=== PATIENT | female | born 1940 | race Caucasian/White ===

== ENCOUNTER 2017-06-10 13:34 | Inpatient (IN) ==
[2017-06-10 15:35] LABS: Basophils % 0.9 %; Eosinophils # 0.1 K/mcL (0.0-0.6); Eosinophils % 2.9 %; Hematocrit 29.8 % (35.3-44.9); Immature Granulocytes % 0.9 % (0-4); Lymphocytes # 0.4 K/mcL (0.6-4.6); Lymphocytes % 8.6 %; Mean Corpuscular HGB Conc 30.2 g/dL (31.6-35.5); Mean Corpuscular Hemoglobin 22.7 pg (28.0-33.3); Mean Corpuscular Volume 75.1 fL (83.0-100.0); Mean Platelet Volume 9.4 fL (9.4-12.4); Monocytes # 0.4 K/mcL (0.0-1.3); Monocytes % 7.7 %; Neutrophils # 3.6 K/mcL (1.6-8.9); Platelet Count 230 K/mcL (140-400); Red Blood Count 3.97 M/mcL (3.82-4.97); Red Cell Distribution Width 17.1 % (11.5-14.5)
[2017-06-10 15:50] LABS: Albumin 3.4 g/dL (3.5-5.0); Albumin/Globulin Ratio 1.1 (1.1-2.2); Bilirubin,Total 0.6 mg/dL (0.2-1.2); Calcium 9.2 mg/dL (8.6-10.8); Globulin 3.1 g/dL (2.4-3.5); Potassium 4.4 mEq/L (3.5-4.5); Total Protein 6.5 g/dL (6.0-8.3)
--- NOTE | 2017-06-10 17:12 | Emergency Department Note ---
Disposition Clinical Impression: Frail elderly, Lower extremity edema, Dyspnea, Anemia, Renal insufficiency, Pleural effusion Disposition: Admitted As Inpatient Referrals: Robles Koch MD [Primary Care Provider] - Forms: ED Satisfaction Letter General Adult HPI - General Chief complaint: ED Shortness of Breath/Dyspnea Stated complaint: JACKELINE, BLE swelling Time Seen by Provider: 06/10/17 17:10 Source: patient Limitations: no limitations - History of Present Illness HPI Narrative: 77-year-old female reports emergency department complaining of lower extreme edema bilaterally. There is no history of chest pain or coughing up blood. No trauma. There is no history of syncope. The patient is currently not anticoagulated. She has no history of renal failure liver failure or previous heart failure. The patient is had no abdominal pain. No back pain. No coughing redness or pain sore throat fever syncope or coughing up blood. No trouble moving the arms or legs independently no slurred speech or weakness or numbness of the arms or legs. There is no history of trauma. The patient has no history of DVT PE but does have a history of uterine cancer. The patient usually takes antihypertensive medications which do contain a diuretic but she has never taken diuretics for heart failure purposes. She has had increasing shortness of breath with exertion as well as an element of orthopnea. Pain Scale: 8 - Related Data Home Medications Medication Instructions Recorded Confirmed Acetaminophen [Tylenol] 500 mg PO DAILY 06/10/17 06/10/17 Albuterol Neb [Proventil Neb] 2.5 mg IH Q4-6H PRN 06/10/17 06/10/17 Albuterol Sulfate [Proair Hfa] 2 puff IH Q6H PRN 06/10/17 06/10/17 Aspirin 325 mg PO DAILY 06/10/17 06/10/17 Carvedilol [Coreg] 6.25 mg PO BID 06/10/17 06/10/17 Furosemide [Lasix] 20 mg PO DAILY 06/10/17 06/10/17 Allergies Allergy/AdvReac Type Severity Reaction Status Date / Time No Known Allergies Allergy Verified 06/10/17 14:40 All systems ED: reviewed and negative except as stated. Past Medical History - Past Medical History Medical history: Reports: asthma, hypertension Psychiatric history: Reports: no psych history DIRECTOR OF MARKETING history: Reports: no DIRECTOR OF MARKETING history - Social History Smoking Status: Never smoker Smokeless Tobacco Status: No Alcohol use: Reports: none Drug use: Reports: none Physical Exam - General Limitations: no limitations General appearance: alert, in no apparent distress - Head Head exam: atraumatic, normocephalic, normal inspection - Eye Eye exam: Present: normal appearance, PERRL, EOMI - ENT ENT exam: normal exam, normal oropharynx, mucous membranes moist, TM's normal bilaterally, normal external ear exam - Neck Neck exam: Present: normal inspection, full ROM, trachea midline, tenderness - Chest Chest inspection: Present: normal inspection, symmetric chest wall rise - Respiratory Respiratory exam: Present: prolonged expiratory phase. Absent: respiratory distress, wheezes, stridor - Cardiovascular Cardiovascular exam: Present: regular rate, normal rhythm, normal heart sounds - Abdominal Exam Abdominal exam: Present: soft, Non-Tender, normal bowel sounds. Absent: tenderness, distention, guarding, rebound, rigidity - Extremities Exam Extremities exam: Present: full ROM, normal capillary refill, pedal edema. Absent: joint swelling - Expanded Lower Extremity Exam Neurovascular/Tendon exam: Present: normal capillary refill. Absent: motor deficit, sensory deficit, tendon deficit, extremity cold to touch, pallor - Back Exam Back exam: Present: normal inspection, full ROM. Absent: tenderness, CVA tenderness (R), CVA tenderness (L), vertebral tenderness - Neurological Exam Neurological exam: Present: alert, oriented X3, CN II-XII intact. Absent: motor sensory deficit - Psychiatric Psychiatric exam: Present: normal affect, normal mood - Skin Skin exam: Present: warm, dry, intact, normal color. Absent: rash, cyanosis, diaphoresis, erythema, pallor, mottled Course Vital Signs Temperature 97.8 F 06/10/17 14:41 Pulse Rate 81 06/10/17 14:41 Respiratory Rate 20 06/10/17 14:41 Blood Pressure 126/72 06/10/17 14:41 O2 Sat by Pulse Oximetry 95 06/10/17 14:41 Temperature 97.8 F 06/10/17 14:41 Pulse Rate 76 06/10/17 18:00 Respiratory Rate 16 06/10/17 18:00 Blood Pressure 134/80 06/10/17 18:00 O2 Sat by Pulse Oximetry 96 06/10/17 18:00 Oxygen Delivery Oxygen Delivery Room Air Medical Decision Making - [facility] Narrative Medical decision making narrative: Patient is elderly, has bilateral pleural effusions with markedly lower extremity edema, d-dimer and CT have been ordered. The patient does not appear to be in extremis, Lasix was given. The patient has had no cough but has significant orthopnea. There is no history of chest pain, EKG and cardiac enzymes are negative. The patient does not usually have lower extremity edema, based on her age, symptomatic dyspnea, pleural effusions, notable lower extremity edema, I consult with the hospitalist who has accepted the patient for admission. The patient is currently stable with d-dimer and CTA pending. He patient does not have an elevated white count, she has no fever, I do not suspect an infectious source regarding her bilateral pleural effusions, the differential is broad however, further testing and evaluation per the hospitalist team. - Lab Data Result diagrams: 06/10/17 15:28 06/10/17 15:28 Lab Results 06/10/17 06/10/17 06/10/17 Range/Units 15:28 15:28 15:28 WBC 4.5 (4.3-11.1) K/mcL RBC 3.97 (3.82-4.97) M/mcL Hgb 9.0 L (11.5-15.4) g/dL Hct 29.8 L (35.3-44.9) % MCV 75.1 L (83.0-100.0) fL MCH 22.7 L (28.0-33.3) pg MCHC 30.2 L (31.6-35.5) g/dL RDW 17.1 H (11.5-14.5) % Plt Count 230 (140-400) K/mcL MPV 9.4 (9.4-12.4) fL Immature Gran % 0.9 (0-4) % Seg Neutrophils % 79.0 % Lymphocytes % 8.6 % Monocytes % 7.7 % Eosinophils % 2.9 % Basophils % 0.9 % Neutrophils # 3.6 (1.6-8.9) K/mcL Lymphocytes # 0.4 L (0.6-4.6) K/mcL Monocytes # 0.4 (0.0-1.3) K/mcL Eosinophils # 0.1 (0.0-0.6) K/mcL Basophils # 0.0 (0.0-0.2) K/mcL Sodium 132 L (136-145) mEq/L Potassium 4.4 (3.5-4.5) mEq/L Chloride 95 L (98-109) mEq/L Carbon Dioxide 27 (19-29) mEq/L BUN 28 H (7-20) mg/dL Creatinine 1.30 H (0.57-1.11) mg/dL Est GFR ( Amer) 48 L (> 60) Est GFR (Non-Af Amer) 40 L (> 60) BUN/Creatinine Ratio 22 (6-26) Glucose 86 (70-99) mg/dL Calculated Osmolality 279 L (280-300) Calcium 9.2 (8.6-10.8) mg/dL Total Bilirubin 0.6 (0.2-1.2) mg/dL AST 16 (5-34) Units/L ALT 10 (0-55) Units/L Alkaline Phosphatase 74 (38-126) Units/L Troponin I 0.00 (0-0.03) ng/mL B-Natriuretic Peptide (0-100) pg/mL Serum Total Protein 6.5 (6.0-8.3) g/dL Albumin 3.4 L (3.5-5.0) g/dL Globulin 3.1 (2.4-3.5) g/dL Albumin/Globulin Ratio 1.1 (1.1-2.2) 06/10/17 Range/Units 15:28 WBC (4.3-11.1) K/mcL RBC (3.82-4.97) M/mcL Hgb (11.5-15.4) g/dL Hct (35.3-44.9) % MCV (83.0-100.0) fL MCH (28.0-33.3) pg MCHC (31.6-35.5) g/dL RDW (11.5-14.5) % Plt Count (140-400) K/mcL MPV (9.4-12.4) fL Immature Gran % (0-4) % Seg Neutrophils % % Lymphocytes % % Monocytes % % Eosinophils % % Basophils % % Neutrophils # (1.6-8.9) K/mcL Lymphocytes # (0.6-4.6) K/mcL Monocytes # (0.0-1.3) K/mcL Eosinophils # (0.0-0.6) K/mcL Basophils # (0.0-0.2) K/mcL Sodium (136-145) mEq/L Potassium (3.5-4.5) mEq/L Chloride (98-109) mEq/L Carbon Dioxide (19-29) mEq/L BUN (7-20) mg/dL Creatinine (0.57-1.11) mg/dL Est GFR ( Amer) (> 60) Est GFR (Non-Af Amer) (> 60) BUN/Creatinine Ratio (6-26) Glucose (70-99) mg/dL Calculated Osmolality (280-300) Calcium (8.6-10.8) mg/dL Total Bilirubin (0.2-1.2) mg/dL AST (5-34) Units/L ALT (0-55) Units/L Alkaline Phosphatase (38-126) Units/L Troponin I (0-0.03) ng/mL B-Natriuretic Peptide 44 (0-100) pg/mL Serum Total Protein (6.0-8.3) g/dL Albumin (3.5-5.0) g/dL Globulin (2.4-3.5) g/dL Albumin/Globulin Ratio (1.1-2.2)
[2017-06-10] MEDS ORDERED: Furosemide 40 MG/4 ML VIAL IVP ONE (17:54)
[2017-06-10] MEDS ORDERED: Ondansetron 4 MG/2 ML VIAL IVP PRN (21:53)
[2017-06-10] MEDS ORDERED: Naloxone 0.4 MG/ML INJ IVP PRN (21:53)
[2017-06-10] MEDS ORDERED: *HR* Morphine 2 MG/ML SYRINGE IVP PRN (21:53)
[2017-06-10] MEDS ORDERED: *HR* HYDROcodone/Acet 5/325 mg TABLET PO PRN (21:53)
[2017-06-10] MEDS ORDERED: Acetaminophen 325 MG TABLET PO PRN (21:53)
[2017-06-10] MEDS ORDERED: *HR* Heparin 5,000 UNIT/ML VIAL IVP PRN ×2 (21:58)
[2017-06-10] MEDS ORDERED: *HR* Heparin 5,000 UNIT/ML VIAL IVP ONE (21:58)
--- NOTE | 2017-06-10 22:11 | Internal Med History&Physical ---
Date of Encounter: 06/10/17 Time of Encounter: 21:00 Assessment and Plan (1) Dyspnea Current visit: Yes Status: Acute Patient presents with SOB/dyspnea/orthopnea for past week and a half that has become progressively worse. D-dimer 13,023. Concern is for PE versus CHF. Patient has 2+ pitting edema of bilateral LEs. Patient reports she cannot lay flat for VQ scan at this time. Diurese with 40 mg IVP lasix BID and VQ scan ordered for tomorrow. Venous Doppler ordered for bilateral LEs to r/o DVTs. Supplemental O2 with titration and continuous SpO2 monitoring. Will continue patient's inhalers. DuoNebs Q6 PRN. Monitor patient and VS. Patient placed in standard-dose heparin drip for prophylaxis until VQ scan can be completed. Echocardiogram ordered. Qualifiers: Dyspnea type: orthopnea Qualified Code(s): R06.01 - Orthopnea (2) Lower extremity edema Current visit: Yes Status: Acute 2+ pitting edema present on BLEs. Patient states this has never been this severe. Concern is for possible DVT/PE due to D-dimer of 13,023. Diurese with IV lasix 40 mg BID. Coronel catheter to be placed during diuresis. Venous Dopplers ordered to r/o DVTs in LEs. Standard-dose heparin drip for prophylaxis. Monitor I&O and daily weight. (3) Pleural effusion Current visit: Yes Status: Acute 2-View CXR today shows pleural effusions with bibasilar atelectasis. Patient takes 20 mg PO lasix daily. Will hold PO and administer IVP lasix 40 mg BID for current fluid overload. Monitor I&O and VS/respiratory status. (4) Anemia Current visit: Yes Status: Acute Hgb 9.0 and Hct 29.8 on admission. No prior values to compare to. Patient denies any unusual bleeding. Fecal hemoccult ordered. Monitor H/H in follow-up labs. Monitor patient for signs of unusual bleeding d/t current heparin drip. Renal B/C vitamin ordered daily. Qualifiers: Anemia type: unspecified type Qualified Code(s): D64.9 - Anemia, unspecified (5) Renal insufficiency Current visit: Yes Status: Acute Patient presents with GFR of 40 but denies any hx of CKD or renal insufficiency. Will diurese patient cautiously with IVP lasix for current bilateral pedal edema. Monitor follow-up labs, renal function, I&O, and daily weight. (6) HTN (hypertension) Current visit: Yes Status: Chronic Hx of chronic HTN. Monitor patient and VS and continue patient's Coreg. Qualifiers: Hypertension type: essential hypertension Qualified Code(s): I10 - Essential (primary) hypertension (7) DVT prophylaxis Current visit: Yes Status: Acute Patient placed on standard-dose heparin drip for prophylaxis due to concern for PE/DVT. Will monitor patient for signs of bleeding. Internal Medicine - H&P: HPI Chief complaint: SOB/Dyspnea Admitted From: Emergency Dept Plans for Post Hospital Care: Home History of present illness: Mrs. Quintero is a 77 year old female with medical history asthma, hypertension, and uterine cancer presents from the ED with chief complaint of SOB and dyspnea for the past 1 1/2 weeks. She states that she has never had this before. She also states that she has bilateral pedal edema that is 2+ and has never been this bad. She denies history of COPD, CHF, or cardiac issues. Patient denies recent illness, fever, chills, nausea, vomiting, abdominal pain, changes in vision, headache, chest pain, lightheadedness, unusual bleeding, pre-syncope, or syncope. Patient denies any history of anemia. On admission, patient's vital signs include temperature of 97.8F, heart rate of 76 bpm, respiratory rate of 16 , BP of 134/80, and SPO2 96% on room air. 2-View CXR today shows pleural effusions with bibasilar atelectasis. Pertinent abnormal labs include Hgb of 9.0 , HCT of 29.8, sodium of 132, chloride of 95, BUN of 28, creatinine 1.30, GFR 40 , and D-dimer of 13,023. Initial troponin 0.00. Assessment: Patient is alert and oriented 3 and states she is not experiencing acute distress with the exception of mild shortness of breath and orthopnea when she lays flat. HR is RRR. Lungs have diminished breath sounds bilaterally and auscultation without wheezes or crackles. Patient has 2+ pitting edema bilateral lower extremities. Patient is hemodynamically stable and reports only mild SOB. Information obtained from patient, chart review, and previous medical records. Mrs. Quintero is at high risk for further morbidity and respiratory distress based on current symptoms, high risk for possible PE/DVT, and history and will be placed as inpatient status. Time spent with patient >40 minutes. Past Med Surg Social Fam HX - Past Medical History Source: patient, old records reviewed Medical history: asthma, cancer (Uterine), hypertension Psychiatric history: no psych history - Past Surgical History Surgical History: appendectomy, cholecystectomy, hysterectomy (Total), vascular surgery (Stripping of varicose veins of right leg) - Social History Smoking Status: Never smoker Smokeless Tobacco Status: No Alcohol use: none Drug use: none Current living situation: Home, With Family Activity Level: Independent ambulation Recent Out of Country Travel Within the Last 8 Weeks: No Exposure or Possible Exposure to Illness During Travel: No - Family History Father Race: Family Member Ethnicity: Non- Living Status: Age at : 61 Cause of : MT Hx Family Cardiac Disorders: Yes (MT, CAD) Mother Race: Family Member Ethnicity: Non- Living Status: Age at : 80 Cause of : CHF Hx Family Cardiac Disorders: Yes (CHF, CAD, TIAs) Hx Family Endocrine Disorder: Yes (DM) Brother Race: Family Member Ethnicity: Non- Living Status: Age at : 72 Cause of : MT Hx Family Cardiac Disorders: Yes (MT, CAD, HTN) Sister Race: Family Member Ethnicity: Non- Living Status: Age at : 89 Cause of : Heart failure Hx Family Cardiac Disorders: Yes (HF, CAD, HTN) Internal Medicine - H&P: Meds Acetaminophen [Tylenol] 500 mg PO DAILY 06/10/17 [History] Albuterol Neb [Proventil Neb] 2.5 mg IH Q4-6H PRN 06/10/17 [History] Albuterol Sulfate [Proair Hfa] 2 puff IH Q6H PRN 06/10/17 [History] Aspirin 325 mg PO DAILY 06/10/17 [History] Carvedilol [Coreg] 6.25 mg PO BID 06/10/17 [History] Furosemide [Lasix] 20 mg PO DAILY 06/10/17 [History] 3 Allergy/AdvReac Type Severity Reaction Status Date / Time No Known Allergies Allergy Verified 06/10/17 14:40 All Systems PM: A 10-system review of systems was performed and is negative for pertinent findings except as documented above in the HPI. - Constitutional Constitutional: as per HPI, weakness, no chills, no fever(s), no night sweats - EENT Eyes: no change in vision, no discharge, no pain, no photophobia Ears: no ear discharge, no ear pain, no tinnitus Nose, mouth and throat: no dysphagia, no nasal discharge, no neck pain, no sore throat - Breasts Breasts: as per HPI - Cardiovascular Cardiovascular ROS IM: as per HPI, dyspnea, dyspnea on exertion, edema, orthopnea - Respiratory Respiratory: as per HPI, dyspnea, dyspnea on exertion - Gastrointestinal Gastrointestinal: no abdominal pain, no diarrhea, no hematemesis, no hematochezia, no melena, no nausea, no vomiting - Genitourinary Genitourinary: no change in urinary stream, no dysuria, no flank pain, no hematuria Menstruation: as per HPI, post hysterectomy - Musculoskeletal Musculoskeletal ROS IM: no numbness, no tingling - Integumentary Integumentary IM: no rash, no unusual bruising - Neurological Neurological ROS: no confusion, no convulsions, no focal weakness, no numbness, no tingling, no tremor(s) - Psychiatric Psychiatric: as per HPI - Endocrine Endocrine IM: as per HPI - Hematologic/Lymphatic Hematologic/Lymphatic: no easy bruising - Allergic/Immunologic Allergic/Immunologic: as per HPI - Constitutional Vitals: Temp Pulse Resp BP Pulse Ox 97.0 F L 75 16 154/76 97 06/10/17 19:35 06/10/17 19:35 06/10/17 19:35 06/10/17 19:35 06/10/17 19:35 General appearance: Present: cooperative, mild distress (SOB/Orthopnea), A&O X 3 , pleasant, obese, answers questions appropriately - Head Head exam: Present: atraumatic, normocephalic - Eye Eye exam: Present: PERRL, conjuntiva pink, sclera anicteric Pupils: Present: PERRL - ENT ENT exam: Present: normal exam, normal external ear exam - Neck Neck exam general surgery: Present: normal inspection, supple, trachea midline. Absent: lymphadenopathy - Respiratory Respiratory exam: Present: accessory muscle use, decreased breath sounds - Cardiovascular Cardiovascular exam: Present: RRR, +S1, +S2. Absent: diastolic murmur, gallop, rubs, systolic murmur - GI/Abdominal GI/Abdominal exam: Present: normal bowel sounds, soft, no peritoneal signs. Absent: distended, tenderness - Rectal Rectal exam: Present: deferred - Additional comments: exam deferred. - Extremities Exam Extremities exam: Present: pedal edema (2+ pitting edema of LEs bilaterally), warm, radial pulses palpable and symmetrical. Absent: calf tenderness, cyanotic - Back Exam Back exam: Present: normal inspection - Neurological Exam Neurological exam: Present: CN II-XII intact, oriented X3, no focal deficits. Absent: pronater drift, facial droop, speech deficit - Psychiatric Psychiatric exam: Present: normal affect, normal mood - Skin Skin exam: Present: dry, intact Internal Med - H&P Results - Labs CBC & Chem 7: 06/10/17 15:28 06/10/17 15:28 - EKG Data EKG shows normal: sinus rhythm Rate: normal - EKG Data Prior EKG available for review: no Interpretation IM: normal EKG - Diagnostic Studies Chest x-ray Additional comments: Impressions Chest X-Ray 06/10/17 17:11 IMPRESSION: Pleural effusions with bibasilar atelectasis. D/ / 06/10/2017 17:44:55 Tee Huerta MD / shiva Interpreting Provider: Tee Huerta MD
[2017-06-10 22:28] LABS: Prothrombin Time 11.2 Seconds (9.4-12.1)
[2017-06-10 22:31] LABS: Activated Partial Thrombo Time 28.8 Seconds (26.0-36.0)
[2017-06-10] MEDS ORDERED: Ipratropium/Albuterol Neb 3 ML IH PRN (22:45)
--- NOTE | 2017-06-10 23:11 | Event Note ---
Date of Encounter: 06/10/17 Time of Encounter: 23:08 Patient and examined with nurse practitioner. Patient presents with symptoms of congestive heart failure. This is new onset. Symptoms started 2 weeks ago. Mentioned that one week ago she took a flu shot. No prior known history of coronary artery disease. We started the patient on Lasix 40 mg IV b.i.d. Coronel catheter will be placed strict intake and output. We check echocardiogram. D- dimer is significantly elevated. We check venous Doppler and VQ scan. Patient cannot lie flat for the VQ protest will be delayed after diuresis when she would be able to lie flat. Till then she will be on heparin drip. Patient the full Code. Inpatient admission
[2017-06-10] MEDS: Heparin 25,000 UNIT/500 ML D5W 25,000 UNIT/500 ML MLS IVC SCH (23:21)
[2017-06-10] MEDS: Furosemide 40 MG/4 ML VIAL IVP SCH (23:25)
[2017-06-11] MEDS ORDERED: Albuterol 2.5 MG/3 ML NEBULIZER IH SCH
[2017-06-11] MEDS ORDERED: Ipratropium/Albuterol Neb 3 ML IH SCH (04:00)
[2017-06-11 06:33] LABS: INR 1.1; Prothrombin Time 12.2 Seconds (9.4-12.1)
[2017-06-11 06:39] LABS: Albumin 3.3 g/dL (3.5-5.0); Albumin/Globulin Ratio 1.1 (1.1-2.2); Bilirubin,Total 0.6 mg/dL (0.2-1.2); Calcium 8.9 mg/dL (8.6-10.8); Chol/HDL Ratio 4.6 (0-4.9); Globulin 2.9 g/dL (2.4-3.5); Magnesium 1.7 mg/dL (1.6-2.6); Potassium 4.2 mEq/L (3.5-4.5); Total Protein 6.2 g/dL (6.0-8.3)
[2017-06-11 06:42] LABS: Hemoglobin A1C 5.2 %
[2017-06-11 06:56] LABS: Basophils % 0.6 %; Eosinophils # 0.2 K/mcL (0.0-0.6); Eosinophils % 3.2 %; Hematocrit 28.7 % (35.3-44.9); Hemoglobin 8.5 g/dL (11.5-15.4); Immature Granulocytes % 0.9 % (0-4); Lymphocytes # 0.5 K/mcL (0.6-4.6); Mean Corpuscular HGB Conc 29.6 g/dL (31.6-35.5); Mean Corpuscular Hemoglobin 22.3 pg (28.0-33.3); Mean Corpuscular Volume 75.1 fL (83.0-100.0); Monocytes # 0.4 K/mcL (0.0-1.3); Neutrophils # 3.6 K/mcL (1.6-8.9); Platelet Count 258 K/mcL (140-400); Red Blood Count 3.82 M/mcL (3.82-4.97); Red Cell Distribution Width 17.3 % (11.5-14.5); Segmented Neutrophils % 76.3 %
[2017-06-11 06:58] LABS: Activated Partial Thrombo Time > 360.0 Seconds (26.0-36.0)
[2017-06-11 07:00] LABS: Thyroid Stimulating Hormone 3.583 mcIU/mL (0.350-4.840)
[2017-06-11] MEDS ORDERED: Aspirin 325 MG TABLET PO SCH (09:00)
[2017-06-11] MEDS: Renal Vitamin 1 MG CAPSULE PO SCH (09:01)
[2017-06-11] MEDS: Furosemide 40 MG/4 ML VIAL IVP SCH ×2 (09:02→22:16)
--- NOTE | 2017-06-11 10:08 | Internal Med Progress Note ---
Date of Encounter: 06/11/17 Time of Encounter: 09:30 - Constitutional Vitals: Temp Pulse Resp BP Pulse Ox 97.5 F L 82 18 121/72 98 06/11/17 08:58 06/11/17 08:58 06/11/17 08:58 06/11/17 08:58 06/11/17 08:58 General appearance: Present: cooperative, mild distress (SOB/Orthopnea), A&O X 3 , pleasant, obese, answers questions appropriately Internal Medicine: Result - Labs CBC & Chem 7: 06/11/17 05:37 06/11/17 05:37 Labs: Short CBC 06/11/17 Range/Units 05:37 WBC 4.7 (4.3-11.1) K/mcL Hgb 8.5 L (11.5-15.4) g/dL Hct 28.7 L (35.3-44.9) % Plt Count 258 (140-400) K/mcL Neutrophils # 3.6 (1.6-8.9) K/mcL BMP 06/11/17 05:37 Sodium 134 L Potassium 4.2 Chloride 94 L Carbon Dioxide 31 H BUN 27 H Creatinine 1.23 H Glucose 100 H Calcium 8.9 Cardiac Enzymes 06/11/17 Range/Units 05:37 Troponin I 0.00 (0-0.03) ng/mL Liver Function 06/11/17 Range/Units 05:37 Total Bilirubin 0.6 (0.2-1.2) mg/dL AST 15 (5-34) Units/L ALT 8 (0-55) Units/L Alkaline Phosphatase 70 (38-126) Units/L Albumin 3.3 L (3.5-5.0) g/dL - ABG Interpretation ABG results: PT/INR, D-dimer PT 12.2 Seconds (9.4-12.1) H 06/11/17 05:37 D-Dimer 45099 ng/mLFEU (0-500) H 06/10/17 19:09 Consult Discharge Plan - Plan Referrals: Robles Koch MD [Primary Care Provider] - Prescriptions: Apixaban [Eliquis] 5 mg PO BID #45 tablet
[2017-06-11 11:30] LABS: % Iron Saturation 16 % (15-50); Iron 44 mcg/dL (50-170); Transferrin 192 mg/dL (180-382)
[2017-06-11 11:48] LABS: Ferritin 892 ng/ml (5-204)
--- NOTE | 2017-06-11 12:00 | Cardiology Consult Note ---
Date of Encounter: 06/11/17 Time of Encounter: 09:30 Assessment and Plan (1) Dyspnea Current Visit: Yes Status: Acute TTE completed and shows normal LVEF. Only mild diastolic dysfunction. Normal RV size and function. No valvular heart disease. Venous doppler prelim: Bilateral lower extremity venous duplex exam completed. Positive DVT in right distal Iliac V, CFV, POP V. Positive DVT in left POP V, and positive SVT in left LSV. Patient likely has PE causing symptoms. D-dimer 13,000. TTE did not show CHF. Troponin negative. She is on heparin gtt. WIll need assisted AC per primary team. Agree with diuresis until euvolemic. Kidney function improving. Strict I&O and daily weights. No further cardiac testing at this time. Please call with questions. Qualifiers: Dyspnea type: orthopnea Qualified Code(s): R06.01 - Orthopnea (2) Dvt femoral (deep venous thrombosis) Current Visit: Yes Status: Acute Pre-mckeon venous doppler -Bilateral lower extremity venous duplex exam completed. Positive DVT in right distal Iliac V, CFV, POP V. Positive DVT in left POP V , and positive SVT in left LSV. On heparin gtt. senior care ac per primary team. Qualifiers: Chronicity: acute Laterality: bilateral Qualified Code(s): I82.413 - Acute embolism and thrombosis of femoral vein, bilateral Discussion w patient/family: The assessment and plan as outlined above was discussed with the patient and/or family members who expressed understanding and agreement. All questions were answered. Thank you for involving us in the care of your patient. Please call with any questions. History of Present Illness Consult date: 06/11/17 Requesting physician: Joyce Vasquez Consult reason: Acute CHF Chief complaint: Dyspnea, orthopnea, BLE edema History of present illness: Ms. Quintero is a 77 year old female with a past medical history of hypertension and asthma who presents with increasing dyspnea with exertion over the past three weeks. She also c/o BLE edema and orthopnea. She denies chest pain or palpitations. Denies history of CAD or CHF. Cardiology consulted for acute CHF. Initial work-up revealed elevated d-dimer at 13,000. Troponin was negative x 2. She was mildly anemic at 9.0. No previous history of anemia. CXR show bilateral pleural effusions with bibasilar atelectasis. She says she developed cough after receiving flu shot one week ago. Past Med Surg Social Fam HX - Past Medical History Attestation: Yes The following information was validated with the patient. Medical history: asthma, cancer (Uterine), hypertension Psychiatric history: no psych history - Past Surgical History Surgical History: appendectomy, cholecystectomy, hysterectomy (Total), vascular surgery (Stripping of varicose veins of right leg) - Social History Smoking Status: Never smoker Smokeless Tobacco Status: No Alcohol use: none Drug use: none - Family History Father Race: Family Member Ethnicity: Non- Living Status: Age at : 61 Cause of : NV Hx Family Cardiac Disorders: Yes (NV, CAD) Mother Race: Family Member Ethnicity: Non- Living Status: Age at : 80 Cause of : CHF Hx Family Cardiac Disorders: Yes (CHF, CAD, TIAs) Hx Family Endocrine Disorder: Yes (DM) Brother Race: Family Member Ethnicity: Non- Living Status: Age at : 72 Cause of : NV Hx Family Cardiac Disorders: Yes (NV, CAD, HTN) Sister Race: Family Member Ethnicity: Non- Living Status: Age at : 89 Cause of : Heart failure Hx Family Cardiac Disorders: Yes (HF, CAD, HTN) Medications and Allergies Acetaminophen [Tylenol] 500 mg PO DAILY 06/10/17 [History] Albuterol Neb [Proventil Neb] 2.5 mg IH Q4-6H PRN 06/10/17 [History] Albuterol Sulfate [Proair Hfa] 2 puff IH Q6H PRN 06/10/17 [History] Aspirin 325 mg PO DAILY 06/10/17 [History] Carvedilol [Coreg] 6.25 mg PO BID 06/10/17 [History] Furosemide [Lasix] 20 mg PO DAILY 06/10/17 [History] Apixaban [Eliquis] 5 mg PO BID #45 tablet 06/11/17 [Rx] 3 Allergy/AdvReac Type Severity Reaction Status Date / Time No Known Allergies Allergy Verified 06/10/17 14:40 All Systems Review: A 10-system review of systems was performed and is negative for pertinent findings except as documented above in the HPI. Physical Examination Vital Signs, Last 4 Hours Temp Pulse Resp BP Pulse Ox 06/11/17 11:36 97.3 F L 68 16 85/53 97 06/11/17 08:58 97.5 F L 82 18 121/72 98 General: Conversant, No Apparent Distress HEENT: Atraumatic, Normocephaly, Mucus Membranes Moist Neck: No JVD, Normal carotid pulses Cardiac: Reg Rate and Rhythm, Normal S1 and S2, No Murmur Lungs: Other (RLL posteriorly. ) Neuro: Alert and responsive, No focal deficits noted Abdomen: Soft, Non-Tender Skin: No rashes noted on visualized skin Musculoskeletal: No Chest Wall Tenderness Extremities: No Clubbing, No Cyanosis, Normal Pulses, Other (2+ bilat ankle edema) Results 06/11/17 05:37 06/11/17 05:37 Lab Results 06/11/17 06/11/17 06/11/17 05:37 05:37 05:37 WBC 4.7 Hgb 8.5 L Hct 28.7 L Plt Count 258 INR 1.1 APTT > 360.0 H* D Sodium 134 L Potassium 4.2 Chloride 94 L Carbon Dioxide 31 H BUN 27 H Creatinine 1.23 H Glucose 100 H Calcium 8.9 Magnesium 1.7 Total Bilirubin 0.6 AST 15 ALT 8 Alkaline Phosphatase 70 Troponin I TSH 3.583 06/11/17 06/11/17 05:37 08:53 WBC Hgb Hct Plt Count INR APTT 96.4 H D Sodium Potassium Chloride Carbon Dioxide BUN Creatinine Glucose Calcium Magnesium Total Bilirubin AST ALT Alkaline Phosphatase Troponin I 0.00 TSH - Imaging and Cardiology Echo: report reviewed - EKG Interpretation EKG results cardiology: personally reviewed Consult Discharge Plan - Plan Referrals: Robles Koch MD [Primary Care Provider] - Prescriptions: Apixaban [Eliquis] 5 mg PO BID #45 tablet
[2017-06-11 14:39] LABS: Folate 7.2 ng/mL (7.0-31.4)
--- NOTE | 2017-06-11 15:11 | Internal Med Progress Note ---
Date of Encounter: 06/11/17 Time of Encounter: 09:30 - Assessment and plan (1) Acute respiratory failure with hypoxia Current Visit: Yes Status: Acute Assessment and plan: Due to possible PE with underlying diastolic dysfunction and bilateral pleural effusions. Continue O2 supplementation and wean FiO2 as tolerated (2) Pulmonary embolism Current Visit: Yes Status: Suspected Assessment and plan: Patient with dyspnea and underlying deep vein thrombosis. Highly suspicious for pulmonary embolism. Unable to do CT angiogram due to abnormal renal function. Patient not able to tolerate VQ scan due to orthopnea. Will reattempt tomorrow. For now continue to treat with anticoagulation. Patient prefers to be on new or oral anticoagulative therapies rather than Coumadin. Given her abnormal renal function, we will prescribe Eliquis. We will consult licensed clinical social worker to see how much it would cost the patient. She does have increased risk of GI bleed with this medication and understands the risks. She will need close monitoring of her blood counts. It is at high risk for complications. Continue O2 supplementation. Qualifiers: Pulmonary embolism type: other Chronicity: acute Acute cor pulmonale presence: without acute cor pulmonale Qualified Code(s): I26.99 - Other pulmonary embolism without acute cor pulmonale (3) Venous thromboembolism (VTE) Current Visit: Yes Status: Acute Assessment and plan: Right lower extremity extensive deep pain thrombosis from distal iliac to popliteal vein. Patient also has DVT in left popliteal vein. Appears to be unprovoked. No family history. She did sustain recent fall but no fracture and patient does not have any discomfort with ambulation. For now started on treatment with IV heparin. Goal is to transition patient to Eliquis. (4) Anemia Current Visit: Yes Status: Acute Assessment and plan: Patient has hypochromic anemia. Uncertain etiology. Has slightly low iron levels. We will replace orally. Normal folic acid and B12 levels. Patient has never undergone colonoscopy before. I do recommend that she undergo colonoscopy in 4-6 weeks or if her anemia worsens while she is on anticoagulants for PE. Qualifiers: Anemia type: unspecified type Qualified Code(s): D64.9 - Anemia, unspecified (5) HTN (hypertension) Current Visit: Yes Status: Chronic Assessment and plan: Blood pressure is well controlled Qualifiers: Hypertension type: essential hypertension Qualified Code(s): I10 - Essential (primary) hypertension (6) Pleural effusion Current Visit: Yes Status: Acute Assessment and plan: On Lasix. Could be related to diastolic dysfunction and and volume overload. (7) Renal insufficiency Current Visit: Yes Status: Acute Assessment and plan: Improving renal function. We will continue to monitor closely as patient is receiving Lasix. - Subjective Interval history: Patient is sitting up in bed. Continues to have dyspnea and orthopnea. No chest pain. Also has bilateral lower extremity edema worse on the right. No lower extremity pain. She does feel somewhat better compared to yesterday. - Constitutional Vitals: Temp Pulse Resp BP Pulse Ox 97.3 F L 68 16 85/53 97 06/11/17 11:36 06/11/17 11:36 06/11/17 11:36 06/11/17 11:36 06/11/17 11:36 General appearance: Present: cooperative, mild distress, A&O X 3, pleasant, obese, answers questions appropriately - Neck Neck exam general surgery: Present: supple, trachea midline. Absent: lymphadenopathy - Respiratory Respiratory exam: Present: CTAB. Absent: accessory muscle use, rales, rhonchi, wheezes - Cardiovascular Cardiovascular exam: Present: RRR, +S1, +S2. Absent: diastolic murmur, gallop, rubs, systolic murmur - GI/Abdominal GI/Abdominal exam: Present: normal bowel sounds, soft, no peritoneal signs. Absent: distended, tenderness - Extremities Exam Extremities exam: Present: pedal edema (Bilateral pedal edema greater on the right extending up to the knee), warm, radial pulses palpable and symmetrical. Absent: calf tenderness, cyanotic - Neurological Exam Neurological exam: Present: alert, oriented X3, no focal deficits. Absent: facial droop, speech deficit - Skin Skin exam: Present: dry, intact Internal Medicine: Result - Labs CBC & Chem 7: 06/11/17 05:37 06/11/17 05:37 Labs: Short CBC 06/11/17 Range/Units 05:37 WBC 4.7 (4.3-11.1) K/mcL Hgb 8.5 L (11.5-15.4) g/dL Hct 28.7 L (35.3-44.9) % Plt Count 258 (140-400) K/mcL Neutrophils # 3.6 (1.6-8.9) K/mcL BMP 06/11/17 05:37 Sodium 134 L Potassium 4.2 Chloride 94 L Carbon Dioxide 31 H BUN 27 H Creatinine 1.23 H Glucose 100 H Calcium 8.9 Cardiac Enzymes 06/11/17 Range/Units 05:37 Troponin I 0.00 (0-0.03) ng/mL Liver Function 06/11/17 Range/Units 05:37 Total Bilirubin 0.6 (0.2-1.2) mg/dL AST 15 (5-34) Units/L ALT 8 (0-55) Units/L Alkaline Phosphatase 70 (38-126) Units/L Albumin 3.3 L (3.5-5.0) g/dL - ABG Interpretation ABG results: PT/INR, D-dimer PT 12.2 Seconds (9.4-12.1) H 06/11/17 05:37 D-Dimer 30751 ng/mLFEU (0-500) H 06/10/17 19:09 - Impressions Impressions Echocardiogram 06/11/17 22:01 Impressions: Normal LV systolic function, LVEF 65%. Mild concentric left ventricular hypertrophy. Mild left ventricular diastolic dysfunction. Normal right ventricular size and function. No significant valvular dysfunction. Mild pulmonary hypertension. Estimated RVSP = 39 mmHg. No evidence of intracardiac shunting with agitated saline contrast. Left Ventricular Wall Motion: Rest Echo Findings All wall segments showed normal motion. Findings: Study Quality * Suboptimal echo windows. ECG Findings * Normal sinus rhythm. Left Ventricle * Normal LV systolic function, LVEF 65%. * Normal LV chamber size. * Mild concentric left ventricular hypertrophy. * Mild left ventricular diastolic dysfunction. Right Ventricle * Normal right ventricular size and function. Left Atrium * Normal left atrial size. Right Atrium * Normal right atrial size. Interatrial Septum * No evidence of intracardiac shunting with agitated saline contrast. Aorta * Normally sized aortic root. Pericardium * There is a trivial pericardial effusion present. IVC * The IVC is not well evaluated. Aortic Valve * Trileaflet aortic valve. * No aortic stenosis. * No aortic regurgitation. Mitral Valve * Normal mitral valve structure. * No mitral stenosis. * Trace mitral regurgitation. Tricuspid Valve * Normal tricuspid valve structure. * No tricuspid stenosis. * Trace tricuspid regurgitation. * Mild pulmonary hypertension. Estimated RVSP = 39 mmHg. Pulmonic Valve * Pulmonic valve not well visualized. * No pulmonic stenosis. * Trace pulmonic regurgitation. Consult Discharge Plan - Plan Referrals: Robles Koch MD [Primary Care Provider] - Prescriptions: Apixaban [Eliquis] 5 mg PO BID #45 tablet
--- NOTE | 2017-06-11 17:29 | Electrocardiograph Report ---
[place] [id number] Test Date: 2017-06-10 Pat Name: Bella Quintero Department: 104 Room: [facility] Gender: F Treasury Specialist: KINA : 1940 Requested By: Nam Chandler Order Number: [id number] Reading MD: Vandana Andre Measurements Intervals [place] Rate: 72 P: 23 MS: 178 QRS: 9 QRSD: 94 T: -7 QT: 362 QTc: 386 Interpretive Statements SINUS RHYTHM Electronically Signed On 06-11-2017 17:27:40 EDT by Vandana Andre
[2017-06-11] MEDS ORDERED: Warfarin perPT PO PRN (18:00)
[2017-06-11] MEDS ORDERED: *HR* Warfarin 5 MG TABLET PO SCH (18:00)
--- NOTE | 2017-06-11 18:07 | Venous Imaging Report ---
LE Venous Duplex Patient Name:Bella Quintero Order Number:[id number] Procedure Date:06/11/2017 Date:8Age:77 yrs Gender:Female Location:[facility] Room #: 3B52 Rn Stars:Tamra Perez RDCS Referring MD:Robbie Mcintyre MD adult ministries director:Robles Koch MD Reading MD:Ernesto Cage MD Primary Indications:look for DVT, edema Secondary Indications: Impressions: Acute deep venous thrombosis is present in the right distal iliac, common femoral and popliteal veins. Normal right lower extremity superficial venous exam. Acute deep venous thrombosis is present in the left popliteal vein. Acute superficial venous thrombosis is present in the left lesser saphenous vein. Recommendations: After imaging the patient returned to their room. Test completed on 06/11/2017 at 8:06:00 am. Critical findings reported to JASSON Burns by phone at 8:35:00 am on 06/11/2017 by Tamra Perez RDCS. Findings Venous Duplex Results: Right: There is an acute occlusive thrombus seen in the right distal iliac. There is an acute occlusive thrombus seen in the right common femoral. There is an acute occlusive thrombus seen in the right popliteal. The right peroneal and right great saphenous veins were not well visualized. Left: There is an acute occlusive thrombus seen in the left popliteal. There is an acute occlusive thrombus seen in the left lesser saphenous. The left posterior tibial and left peroneal veins were not well visualized. Prior Study: No prior study available for comparison. Lower Extremity Venous Duplex Side Vein Compress Spontaneous Flow Augment Diameter (cm) Depth (cm) Right Distal Iliac None no Phasic no Right Common Femoral None no Phasic no Right Superficial Femoral Normal Yes Phasic Yes Right Popliteal None no Phasic no Right Posterior Tibial Normal Yes Phasic Yes Right Peroneal Normal Yes Phasic Yes Right Saphenofemoral [place] Normal Yes Phasic Yes Right Great Saphenous Normal Yes Phasic Yes Right Lesser Saphenous Normal Yes Phasic Yes Left Distal Iliac Normal Yes Phasic Yes Left Common Femoral Normal Yes Phasic Yes Left Superficial Femoral Normal Yes Phasic Yes Left Popliteal None no Phasic no Left Posterior Tibial Normal Yes Phasic Yes Left Peroneal Normal Yes Phasic Yes Left Saphenofemoral [place] Normal Yes Phasic Yes Left Great Saphenous Normal Yes Phasic Yes Left Lesser Saphenous None no Phasic no Updated by Ernesto Cage MD on 06/11/2017 6:00:04 PM electronically signed on 06/11/2017 6:00:25 PM with status of Final
[2017-06-12] MEDS: Heparin 25,000 UNIT/500 ML D5W 25,000 UNIT/500 ML MLS IVC SCH (02:09)
[2017-06-12 05:01] LABS: Basophils % 0.6 %; Eosinophils # 0.3 K/mcL (0.0-0.6); Eosinophils % 5.9 %; Hematocrit 28.8 % (35.3-44.9); Hemoglobin 8.5 g/dL (11.5-15.4); Immature Granulocytes % 0.6 % (0-4); Lymphocytes # 0.6 K/mcL (0.6-4.6); Lymphocytes % 11.8 %; Mean Corpuscular HGB Conc 29.5 g/dL (31.6-35.5); Mean Corpuscular Hemoglobin 22.4 pg (28.0-33.3); Mean Platelet Volume 9.1 fL (9.4-12.4); Monocytes # 0.4 K/mcL (0.0-1.3); Monocytes % 8.2 %; Neutrophils # 3.4 K/mcL (1.6-8.9); Platelet Count 243 K/mcL (140-400); Red Blood Count 3.79 M/mcL (3.82-4.97); Red Cell Distribution Width 17.4 % (11.5-14.5); Segmented Neutrophils % 72.9 %
[2017-06-12 05:13] LABS: Calcium 8.8 mg/dL (8.6-10.8); Potassium 3.8 mEq/L (3.5-4.5)
[2017-06-12 07:02] VITALS: BP 98/59
[2017-06-12] MEDS: Furosemide 40 MG/4 ML VIAL IVP SCH (08:35)
[2017-06-12] MEDS: Renal Vitamin 1 MG CAPSULE PO SCH (08:45)
[2017-06-12] MEDS ORDERED: Aspirin Enteric Coated 81 MG Tablet PO SCH (09:00)
[2017-06-12] MEDS ORDERED: *HR* Enoxaparin 100 MG/ML SYRINGE SQ SCH ×2 (09:00→18:00)
[2017-06-12] MEDS ORDERED: Furosemide 40 MG TABLET PO SCH (09:00)
[2017-06-12] MEDS ORDERED: *HR* LORazepam 2 MG/ML VIAL IVP ONE (10:16)
[2017-06-12 14:24] LABS: INR 1.1; Prothrombin Time 11.8 Seconds (9.4-12.1)
--- NOTE | 2017-06-12 15:00 | Discharge Summary ---
Date of Encounter: 06/12/17 Time of Encounter: 14:54 - Discharge Diagnosis (1) Acute respiratory failure with hypoxia Priority: Primary Status: Acute (2) Pulmonary embolism Priority: Secondary Status: Acute Qualifiers: Pulmonary embolism type: other Chronicity: acute Acute cor pulmonale presence: without acute cor pulmonale Qualified Code(s): I26.99 - Other pulmonary embolism without acute cor pulmonale (3) Chronic kidney disease, stage III (moderate) Priority: Secondary Status: Chronic (4) Anemia Priority: Secondary Status: Acute Qualifiers: Anemia type: due to chronic kidney disease Chronic kidney disease stage: stage 3 (moderate) Qualified Code(s): N18.3 - Chronic kidney disease, stage 3 (moderate); D63.1 - Anemia in chronic kidney disease; D63.1 - Anemia in chronic kidney disease (5) Dvt femoral (deep venous thrombosis) Priority: Secondary Status: Acute Qualifiers: Chronicity: acute Laterality: bilateral Qualified Code(s): I82.413 - Acute embolism and thrombosis of femoral vein, bilateral (6) HTN (hypertension) Priority: Secondary Status: Chronic Qualifiers: Hypertension type: essential hypertension Qualified Code(s): I10 - Essential (primary) hypertension (7) Pleural effusion Priority: Secondary Status: Acute (8) Venous thromboembolism (VTE) Priority: Secondary Status: Acute - Discharge Medications Prescriptions: Aspirin Enteric Coated [Aspirin EC] 81 mg PO DAILY #30 tablet. Enoxaparin [Lovenox] 90 mg SQ Q24H #7 syringe Furosemide [Lasix] 40 mg PO DAILY #30 tablet Warfarin [Coumadin] 5 mg PO DAILY@1800 #30 tablet Home Medications: Acetaminophen [Tylenol] 500 mg PO DAILY 06/10/17 [History] Albuterol Neb [Proventil Neb] 2.5 mg IH Q4-6H PRN 06/10/17 [History] Albuterol Sulfate [Proair Hfa] 2 puff IH Q6H PRN 06/10/17 [History] Carvedilol [Coreg] 6.25 mg PO BID 06/10/17 [History] Aspirin Enteric Coated [Aspirin EC] 81 mg PO DAILY #30 tablet. 06/12/17 [Rx] Enoxaparin [Lovenox] 90 mg SQ Q24H #7 syringe 06/12/17 [Rx] Furosemide [Lasix] 40 mg PO DAILY #30 tablet 06/12/17 [Rx] Warfarin [Coumadin] 5 mg PO DAILY@1800 #30 tablet 06/12/17 [Rx] Allergies/Adverse Reactions: 3 Allergy/AdvReac Type Severity Reaction Status Date / Time No Known Allergies Allergy Verified 06/10/17 14:40 Procedures/tests Complete & Pending: Procedures Performed prior 72 hours Category Date Time Status VQ Scan [NM pul vent and perfuse] [NM] Stat Exams 06/12/17 10:16 Completed Date of admission: 06/10/17 22:24 Primary care physician: Robles Koch MD Consults: 06/10/17 22:48 Consult to Cardiology [CONS] Routine Comment: Consulting Provider: Cardiology Eneida Reason for Consult: NEW ONSET CHF Call Completed: No 06/11/17 09:17 Consult to Armature Bander [CONS] Routine Reason for SW Consult: DC planning Discharging clinician: Marysol Huff Anticipated date of discharge: 06/12/17 - Patient Status Disposition: Home, Self-Care Condition: Good Functional capacity at discharge: independent ambulation Overall status at discharge: patient is progressing back to baseline - Discharge Instructions Instructions: Acute Respiratory Distress Syndrome (DC), Peripheral Vascular Disorders (DC), Anemia (GEN), Pulmonary Embolism (DC) Follow Up With: Robles Koch MD [Primary Care Provider] - (In one week) Additional Instructions: Follow-up with Coumadin clinic later this week. Follow-up with hematology oncology at [facility] for venous thromboembolic disorder. - Diet and Activity Activity: increase activity as tolerated Diet: advance to your usual diet, low fat, low cholesterol, low salt diet Hospital course: Ms. Quintero is a 77 year old female patient with a history of asthma hypertension, chronic kidney disease stage III uterine cancer who was admitted here with acute dyspnea and hypoxia. Initially her symptoms were believed to be due to pleural effusion but her d-dimer was severely elevated. As such she was started on treatment for possible pulmonary embolism. CT scan of the chest was unable to be done due to her abnormal renal function. She did undergo a VQ scan today which shows intermediate probability for PE. She has acute bilateral lower extremity DVTs. 2-D echocardiogram did not show any right ventricular strain pattern. Patient had normal ejection fraction with mild left ventricular diastolic dysfunction. Cardiology was consulted and they do not believe patient is having acute CHF. She does have bilateral pedal edema likely related to her DVTs. At this time it is unclear what provoked her DVT. She does have a history of prior uterine cancer and also had a fall couple of weeks back. She however does not have any pain with ambulation and does not have a family history of clotting disorder. She was treated with intravenous heparin and intravenous Lasix for her lower extremity edema. She does require treatment with anticoagulation for 6 months. She preferred new anticoagulants but does have a co-pay on them and would not be of able to afford it. As such she will be discharged home Coumadin and it will be bridged with Lovenox. With her renal function she will be on 90 mg subcutaneous daily dosage of Lovenox. Her pedal edema has improved with the use of Lasix. She will continue Lasix at 40 mg daily. Patient has been on aspirin 325 mg by mouth daily. Given that she has been started on Coumadin, I will decrease her dosage to 81 mg daily. She will follow up with her primary care provider and may need referral to hematology oncology for further evaluation to find any underlying abnormalities that led to her developing extensive bilateral deep vein thrombosis and pulmonary embolism. Clinically, patient is currently stable to be discharged home. Patient does have chronic anemia most likely related to her kidney disease. Her hemoglobin levels have been stable here - Time Spent with Patient Total time spent providing and/or coordinating discharge services: Greater than 30 minutes (50 min) - Constitutional Vitals: Temp Pulse Resp BP Pulse Ox 97.6 F 82 16 98/59 98 06/12/17 06:56 06/12/17 13:13 06/12/17 13:13 06/12/17 13:13 06/12/17 13:13 General appearance: Present: cooperative, mild distress, A&O X 3, pleasant, obese, answers questions appropriately - Respiratory Respiratory exam: Present: CTAB. Absent: accessory muscle use, rales, rhonchi, wheezes - Cardiovascular Cardiovascular exam: Present: RRR, +S1, +S2. Absent: diastolic murmur, gallop, rubs, systolic murmur - GI/Abdominal GI/Abdominal exam: Present: normal bowel sounds, soft, no peritoneal signs. Absent: distended, tenderness - Extremities Exam Extremities exam: Present: pedal edema (Right greater than left- improving on both sides), warm, radial pulses palpable and symmetrical. Absent: calf tenderness, cyanotic
[2017-06-12] MEDS ORDERED: *HR* Warfarin 3 MG TABLET PO ONE (18:00)
== END 2017-06-12 18:14 | disposition home or self-care (01) | DRG 175 ==
LOC: EMEROO 13:34 → 3BNU 13:34 → SUATTDRO 18:46 → 3BNU 19:26
PROVIDERS: ADMIT Nurse Practitioner Acute Care; ATTEND Internal Medicine

== ENCOUNTER 2017-07-16 11:33 | Inpatient (IN) ==
[2017-07-16] MEDS ORDERED: Furosemide 40 MG/4 ML VIAL IVP ONE (12:58)
[2017-07-16 13:07] LABS: Basophils % 0.6 %; Eosinophils # 0.1 K/mcL (0.0-0.6); Eosinophils % 2.8 %; Hemoglobin 9.6 g/dL (11.5-15.4); Immature Granulocytes % 0.4 % (0-4); Lymphocytes # 0.6 K/mcL (0.6-4.6); Lymphocytes % 12.5 %; Mean Corpuscular HGB Conc 28.2 g/dL (31.6-35.5); Mean Corpuscular Hemoglobin 23.3 pg (28.0-33.3); Mean Corpuscular Volume 82.5 fL (83.0-100.0); Monocytes # 0.5 K/mcL (0.0-1.3); Monocytes % 9.3 %; Neutrophils # 3.7 K/mcL (1.6-8.9); Platelet Count 248 K/mcL (140-400); Red Blood Count 4.12 M/mcL (3.82-4.97); Red Cell Distribution Width 19.7 % (11.5-14.5); Segmented Neutrophils % 74.4 %
--- NOTE | 2017-07-16 13:08 | Emergency Department Note ---
START Narrative - START START: I examined this patient and my medical decision-making was reviewed with the AIR TRAFFIC CONTROL OPERATOR/PA/Advanced Practice Nurse/Resident Physician. I agree with the documented findings, disposition and treatment plan as described except to the extent set forth below. ED attending note: Patient seen with emergency medicine resident Dr. Leary. We independently evaluated the patient. We independently had [id number] contact with the patient. Please see a copy of his note for details of the history and physical, evaluation, management and disposition of this emergency Department patient. Briefly: 77-year-old female recently diagnosed with pulmonary embolism which was secondary from bilateral DVTs is anticoagulated present shortness of breath and hypoxic. Patient has small speech dyspnea and some mild edema. EKG shows no acute ischemic changes. Patient will undergo repeat CTA of the chest noted to evaluate if the clot burden has changed or worsened, screening labs and likely admission. Providing 30 minutes of critical care services for this patient.
--- NOTE | 2017-07-16 13:09 | Emergency Department Note ---
Disposition Clinical Impression: Bilateral pleural effusion, Hx of pulmonary embolus, Acute and chronic respiratory failure Disposition: Admitted As Inpatient Condition: Serious Time of Disposition: 15:03 SOB HPI - General Chief Complaint: ED Shortness of Breath/Dyspnea Stated Complaint: sent from pcp for possible fluid overload and sob Time Seen by Provider: 07/16/17 12:23 Source: patient Limitations: no limitations Nursing Notes Reviewed: Yes Vital Signs Reviewed: Yes - History of Present Illness 77 year-old female with history of bilateral DVTs, PE diagnosed 3 weeks ago, on Lasix 60 mg daily and Coumadin, presents complaining of shortness of breath and bilateral lower extremity edema, she states that she denies any chest pain, but she has had worsening shortness of breath the last few days. She states that she has had worsening leg swelling, dyspnea on exertion. Patient states that she was just diagnosed with DVTs and PE last few weeks and has been on Coumadin, , K by recent out of epistaxis supratherapeutic INR requiring vitamin K supplementation, otherwise her last INR was 2.2 on records review. Patient denies any current hemoptysis, but has been gaining some weight. She is oxygen dependent at baseline on 4 L. Not oxygen dependent 2 months ago Pt Subjective Complaint: shortness of breath Onset (ago): week(s) Severity: moderate Consistency/Duration: intermittent Improves with: oxygen Known history of: congestive heart failure Associated symptoms: Denies: chest pain, pain with inspiration Treatment prior to arrival: oxygen Cough present: Yes Cough Description: Involuntary Cough Frequency: Intermittent Sputum production: No Sputum Amount: None - Related Data Home Medications Medication Instructions Recorded Confirmed Albuterol Neb [Proventil Neb] 2.5 mg IH Q4-6H PRN 06/10/17 07/16/17 Albuterol Sulfate [Proair Hfa] 2 puff IH Q6H PRN 06/10/17 07/16/17 Carvedilol [Coreg] 6.25 mg PO BID 06/10/17 07/16/17 Furosemide [Lasix] 40 mg PO BID 06/21/17 07/16/17 Potassium Chloride [Klor-Con 10] 10 meq PO DAILY 06/21/17 07/16/17 Warfarin [Coumadin] 2.5 mg PO SUTUWETHFRSA 06/21/17 07/16/17 Warfarin [Coumadin] 5 mg PO MO 06/21/17 07/16/17 Previous Rx's Medication Instructions Recorded Aspirin Enteric Coated [Aspirin EC] 81 mg PO DAILY #30 tablet. 06/12/17 Allergies Allergy/AdvReac Type Severity Reaction Status Date / Time No Known Allergies Allergy Verified 07/16/17 11:56 All systems ED: reviewed and negative except as stated. Review of Systems: As Per HPI Constitutional: Denies: fever, chills Eyes: Denies: eye pain ENT ED: Denies: ear pain Cardiovascular: Reports: as per HPI, dyspnea on exertion, edema. Denies: chest pain Respiratory: Reports: dyspnea. Denies: hemoptysis Gastrointestinal: Denies: abdominal pain Genitourinary: Denies: urgency, dysuria Musculoskeletal: Denies: back pain Integumentary: Denies: rash Past Medical History - Past Medical History Attestation: Yes The following information was validated with the patient. Source: patient Medical history: Reports: asthma, cancer, DVT, hypertension, pulmonary embolus Surgical history: Reports: appendectomy, cholecystectomy, hysterectomy (Total), vascular surgery (Stripping of varicose veins of right leg) Psychiatric history: Reports: no psych history [employer] history: Reports: no [employer] history - Social History Smoking Status: Never smoker Smokeless Tobacco Status: No Alcohol use: Reports: none Drug use: Reports: none Physical Exam Constitutional: Appears mildly short of breath, mild respiratory distress, oxygenating on 4 L nasal cannula Eyes: PERRLA, sclera anicteric ENT & Mouth: MM dry Neck: normal inspection, neck is supple Resp: Diminished breath sounds bilateral bases with rales CV: RRR, no m/g/r +3 pitting edema bilaterally GI: normal inspection, soft, no guarding or rigidity Neuro: A&O3, CNII-XII grossly intact, HAMLIN Skin: on limited exam, skin intact with no rashes or lesions - General Limitations: no limitations General appearance: alert Course Course Narrative: 77-year-old female with history of PE and DVT, basic lab work ordered chest pain workup including CT of chest depending on renal function will plan to rescan given that there is a concern for spreading pulmonary embolus or recurrent PE - Reevaluation(s) Reevaluation #1: Evidence of bilateral worsening pleural effusions, admited to Dr Booth in HD stable medical condition. Time: 15:02 Vital Signs Temperature 97.4 F L 07/16/17 11:51 Pulse Rate 85 07/16/17 11:51 Respiratory Rate 22 07/16/17 11:51 Blood Pressure 115/73 07/16/17 11:51 O2 Sat by Pulse Oximetry 81 07/16/17 11:51 Temperature 97.4 F L 07/16/17 11:51 Pulse Rate 88 07/16/17 14:53 Respiratory Rate 22 07/16/17 14:53 Blood Pressure 121/58 07/16/17 14:53 O2 Sat by Pulse Oximetry 94 07/16/17 14:53 Oxygen Delivery Oxygen Delivery Nasal Cannula Shortness of Breath/Dyspnea - [facility] Narrative Medical decision making narrative: 77-year-old female with bilateral pleural effusions, worsening effusions, also has bilateral peripheral edema diuresis with Lasix, CTA confirms worsening effusuions condition, VBG was also ordered patient will be admitted under serious condition to the hospitalist Dr. Booth - Differential Diagnosis Likely: congestive heart failure, pneumonia, asthma with exacerbation, pulmonary embolism - Medical Records Medical records reviewed: Yes I reviewed the patient's medical records. - Lab Data Lab results reviewed: Yes I reviewed the patient's lab results. Result diagrams: 07/16/17 12:43 07/16/17 12:43 Lab Results 07/16/17 07/16/17 07/16/17 Range/Units 12:43 12:43 12:43 WBC 5.0 (4.3-11.1) K/mcL RBC 4.12 (3.82-4.97) M/mcL Hgb 9.6 L (11.5-15.4) g/dL Hct 34.0 L (35.3-44.9) % MCV 82.5 L (83.0-100.0) fL MCH 23.3 L (28.0-33.3) pg MCHC 28.2 L (31.6-35.5) g/dL RDW 19.7 H (11.5-14.5) % Plt Count 248 (140-400) K/mcL MPV 10.0 (9.4-12.4) fL Immature Gran % 0.4 (0-4) % Seg Neutrophils % 74.4 % Lymphocytes % 12.5 % Monocytes % 9.3 % Eosinophils % 2.8 % Basophils % 0.6 % Neutrophils # 3.7 (1.6-8.9) K/mcL Lymphocytes # 0.6 (0.6-4.6) K/mcL Monocytes # 0.5 (0.0-1.3) K/mcL Eosinophils # 0.1 (0.0-0.6) K/mcL Basophils # 0.0 (0.0-0.2) K/mcL Hypochromasia Present A (Not Present) Basophilic Stippling 1+ A (Not Present) Anisocytosis 1+ A (Not Present) PT 17.1 H (9.4-12.1) Seconds INR 1.6 Sodium 142 (136-145) mEq/L Potassium 5.0 H (3.5-4.5) mEq/L Chloride 97 L (98-109) mEq/L Carbon Dioxide 36 H (19-29) mEq/L BUN 49 H (7-20) mg/dL Creatinine 1.62 H (0.57-1.11) mg/dL Est GFR ( Amer) 37 L (> 60) Est GFR (Non-Af Amer) 31 L (> 60) BUN/Creatinine Ratio 30 H (6-26) Glucose 100 H (70-99) mg/dL Calculated Osmolality 307 H (280-300) Lactic Acid (0.5-2.2) mmol/L Calcium 9.4 (8.6-10.8) mg/dL Troponin I (0-0.03) ng/mL B-Natriuretic Peptide (0-100) pg/mL 07/16/17 07/16/17 07/16/17 Range/Units 12:43 12:43 13:29 WBC (4.3-11.1) K/mcL RBC (3.82-4.97) M/mcL Hgb (11.5-15.4) g/dL Hct (35.3-44.9) % MCV (83.0-100.0) fL MCH (28.0-33.3) pg MCHC (31.6-35.5) g/dL RDW (11.5-14.5) % Plt Count (140-400) K/mcL MPV (9.4-12.4) fL Immature Gran % (0-4) % Seg Neutrophils % % Lymphocytes % % Monocytes % % Eosinophils % % Basophils % % Neutrophils # (1.6-8.9) K/mcL Lymphocytes # (0.6-4.6) K/mcL Monocytes # (0.0-1.3) K/mcL Eosinophils # (0.0-0.6) K/mcL Basophils # (0.0-0.2) K/mcL Hypochromasia (Not Present) Basophilic Stippling (Not Present) Anisocytosis (Not Present) PT (9.4-12.1) Seconds INR Sodium (136-145) mEq/L Potassium (3.5-4.5) mEq/L Chloride (98-109) mEq/L Carbon Dioxide (19-29) mEq/L BUN (7-20) mg/dL Creatinine (0.57-1.11) mg/dL Est GFR ( Amer) (> 60) Est GFR (Non-Af Amer) (> 60) BUN/Creatinine Ratio (6-26) Glucose (70-99) mg/dL Calculated Osmolality (280-300) Lactic Acid 0.6 (0.5-2.2) mmol/L Calcium (8.6-10.8) mg/dL Troponin I 0.01 (0-0.03) ng/mL B-Natriuretic Peptide 25 (0-100) pg/mL - Radiology Data Radiology results reviewed: Yes I reviewed the patient's radiology results. Chest X-Ray 07/16/17 12:10 IMPRESSION: Low lung volumes. Mild pulmonary vascular congestion Bilateral pleural effusions, mild to moderate on the left, moderate to severe on the right, progressed. D/ / Venkatesh Ayers MD / Venkatesh Ayers MD Interpreting Provider: Venkatesh Ayers MD Chest X-Ray 07/16/17 12:10 IMPRESSION: Low lung volumes. Mild pulmonary vascular congestion Bilateral pleural effusions, mild to moderate on the left, moderate to severe on the right, progressed. D/ / Venkatesh Ayers MD / Venkatesh Ayers MD Interpreting Provider: Venkatesh Ayers MD Chest CTA 07/16/17 13:26 IMPRESSION: Negative study for pulmonary emboli. Large bilateral pleural effusions, right larger than left, with likely associated compressive atelectasis to the lungs bilaterally to include near complete opacification of right lower lobe. Atherosclerosis to include coronary artery disease. Ascites to left upper quadrant. D/ / 07/16/2017 15:05:48 Addy Mccabe MD / minnie Interpreting Provider: Addy Mccabe MD - EKG Data EKG attestation: Yes I reviewed and interpreted this EKG. EKG shows normal: Reports: sinus rhythm (72 bpm KS 133 curiosity 9 QTC 382 low voltage) Rate: Reports: normal Rhythm: Reports: NSR Voltage: Reports: decreased voltage throughout When compared to previous EKG there are: no significant changes Interpretation: Reports: no acute changes - Core Measures AMI Core Measures Followed: No
[2017-07-16 13:12] LABS: INR 1.6; Prothrombin Time 17.1 Seconds (9.4-12.1)
[2017-07-16 13:28] LABS: Calcium 9.4 mg/dL (8.6-10.8)
[2017-07-16 13:56] LABS: Anisocytosis 1+ (Not Present)
[2017-07-16 13:57] LABS: Basophilic Stippling 1+ (Not Present)
[2017-07-16 13:58] LABS: Hypochromasia Present (Not Present)
[2017-07-16 15:50] LABS: VBG HCO3 42 mEq/L (21-27); VBG PCO2 97 mmHg (41-51); VBG PH 7.25 pH Units (7.32-7.42); VBG PO2 44 mmHg (25-50)
[2017-07-16] MEDS ORDERED: Naloxone 0.4 MG/ML INJ IVP PRN (17:05)
[2017-07-16] MEDS ORDERED: *HR* Morphine 2 MG/ML SYRINGE IVP PRN (17:05)
[2017-07-16] MEDS ORDERED: Ondansetron 4 MG/2 ML VIAL IVP PRN (17:05)
[2017-07-16] MEDS ORDERED: *HR* HYDROcodone/Acet 5/325 mg TABLET PO PRN (17:05)
[2017-07-16] MEDS ORDERED: Albuterol 2.5 MG/3 ML NEBULIZER IH PRN (17:20)
--- NOTE | 2017-07-16 17:37 | Internal Med History&Physical ---
<Jean Quintana - Last Filed: 07/16/17 18:27> Date of Encounter: 07/16/17 Time of Encounter: 16:00 Assessment and Plan (1) Pneumonia Current visit: Yes Status: Acute CTA of chest today shows large bilateral pleural effusions, right larger than left, with likely associated compressive atelectasis to the lungs bilaterally to include near complete opacification of the right lower lobe. CHF exacerbation versus pneumonia d/t pts. recent hospitalizations. Blood cultures x 2. IVPB vancomycin with pharmacy dosing Zosyn 3.375 gm every 12 for infection coverage with renal dosing. Supplemental O2 with titration and SPO2 monitoring. Solu-Medrol 40 mg every 8 hours IVP. DuoNebs every 6 scheduled. Monitor patient and follow-up labs for signs of increased infection, cardiac, and/or respiratory distress. Pt. at high risk for infection and further morbidity d/t current sx, hx, and risk factors. Inpatient. Qualifiers: Pneumonia type: due to unspecified organism Laterality: right Lung location: lower lobe of lung Qualified Code(s): J18.1 - Lobar pneumonia, unspecified organism (2) Acute exacerbation of CHF (congestive heart failure) Current visit: Yes Status: Acute Acute exacerbation of CHF with progressively worse SOB over the past three weeks , weight gain, and increased pedal edema of bilateral LEs. CTA of the chest today shows large bilateral pleural effusions, right larger than left, with likely associated compressive atelectasis to the lungs bilaterally to include near complete opacification of the right lower lobe. CHF exacerbation versus pneumonia d/t pts. recent hospitalizations. CTA negative for pulmonary embolus. Supplemental O2 w/titration and SpO2 monitoring. Solu-Medrol 40 mg every 8 hours IVP. Lasix 20 mg twice a day IVP. DuoNebs Q6 scheduled. IVPB vancomycin with pharmacy dosing and Zosyn 3.375 gm Q12 for renal dosing d/t current GFR of 31. Renal diet w/1.5L daily fluid restriction. Monitor I&O and daily weight. Monitor f/u labs and pt. for signs of respiratory and/or cardiac distress. Qualifiers: Congestive heart failure type: unspecified congestive heart failure type Qualified Code(s): I50.9 - Heart failure, unspecified (3) Hyperkalemia Current visit: Yes Status: Acute Acute hyperkalemia and potassium of 5.0. Will hold patient's PO potassium and check f/u labs in a.m. for potassium status. Continuous cardiac telemetry. (4) Dyspnea Current visit: Yes Status: Acute Acute dyspnea for the past three weeks that became progressively worse most likely d/t acute CHF exacerbation. Pt. reports bilateral pedal edema for the past three weeks accompanied by SOB. Solu-Medrol 40 mg every 8. Lasix 20 mg twice a day IVP. Supplemental O2 with titration and SPO2 monitoring. BiPAP now. Qualifiers: Dyspnea type: orthopnea Qualified Code(s): R06.01 - Orthopnea (5) Weakness Current visit: Yes Status: Acute Pt. reports acute weakness for the past 3 weeks that has become progressively worse. PT/OT consults ordered to assess pt. for ambulation strength and stability. Falls/safety precautions. (6) Hx of pulmonary embolus Current visit: Yes Status: Chronic Hx of PE. Pt. reports SOB over the past several months. Dx 3 weeks ago of PE and bilateral DVTs. CTA of chest today is negative for pulmonary emboli. Continue patient's Coumadin with pharmacy dosing. (7) Anemia Current visit: Yes Status: Chronic Hx of chronic anemia. Current Hgb is 9.6 and Hct is 34.0, both of which are higher than the patient's previous baseline. Monitor H/H. Qualifiers: Anemia type: unspecified type Qualified Code(s): D64.9 - Anemia, unspecified (8) Chronic kidney disease, stage III (moderate) Current visit: Yes Status: Chronic Hx of chronic CKD stage 3. Current GFR 31. Creatinine 1.62. Will use IV fluids judiciously and avoid nephrotoxins. (9) HTN (hypertension) Current visit: Yes Status: Chronic Hx of chronic HTN. Monitor pt. and VS. Continue pts. Coreg. Qualifiers: Hypertension type: essential hypertension Qualified Code(s): I10 - Essential (primary) hypertension (10) Hx of deep venous thrombosis Current visit: Yes Status: Acute Hx of DVT. Pt. reports dx of biltateral DVTs in LEs3 weeks ago. Continue Coumadin w/pharmacy dosing. Bilateral venous Doppler duplex imaging ordered. (11) DVT prophylaxis Current visit: Yes Status: Acute Coumadin w/pharmacy dosing for DVT prophylaxis. Internal Medicine - H&P: HPI Chief complaint: SOB/Dyspnea Admitted From: Emergency Dept Plans for Post Hospital Care: Home History of present illness: Ms. Quintero is a 77 year old female with medical hx of asthma, previous uterine cancer, DVT, PE, and hypertension who presents from the ED with chief complaint shortness of breath and dyspnea for the past month. Patient reports she has been admitted to the hospital several times for similar sx but symptoms have not resolved and only become worse. Patient was diagnosed with bilateral DVTs and PE 3 weeks ago and placed on Lasix 60 mg daily as well as Coumadin. Current INR is 1.6. Patient also reports history of anemia, weight gain, current pedal edema bilaterally, weakness, and SOB. Pt. states she was not O2- dependent at home until 2 months ago. Patient denies recent illness, fever, chills, nausea, vomiting, chest pain, palpitations, abdominal pain, diarrhea, constipation, changes in vision, unusual bleeding, dizziness, lightheadedness, pre-syncope, or syncope. Past Med Surg Social Fam HX - Past Medical History Source: patient, old records reviewed Medical history: asthma, cancer (Uterine cancer that resulted in total hysterectomy), DVT, hypertension, pulmonary embolus Psychiatric history: no psych history - Past Surgical History Surgical History: appendectomy, cholecystectomy, hysterectomy (Total), vascular surgery (Stripping of varicose veins of right leg) - Social History Smoking Status: Never smoker Smokeless Tobacco Status: No Alcohol use: none Drug use: none Current living situation: Home Activity Level: Independent ambulation, Uses cane/walker Recent Out of Country Travel Within the Last 8 Weeks: No Exposure or Possible Exposure to Illness During Travel: No - Family History Father Race: Family Member Ethnicity: Non- Living Status: Hx Family Cardiac Disorders: Yes (VA, CAD) Mother Race: Family Member Ethnicity: Non- Living Status: Hx Family Cardiac Disorders: Yes (CHF, CAD, TIAs) Hx Family Endocrine Disorder: Yes (DM) Brother Race: Family Member Ethnicity: Non- Living Status: Hx Family Cardiac Disorders: Yes (VA, CAD, HTN) Sister Race: Family Member Ethnicity: Non- Living Status: Hx Family Cardiac Disorders: Yes (HF, CAD, HTN) Internal Medicine - H&P: Meds Albuterol Neb [Proventil Neb] 2.5 mg IH Q4-6H PRN 10/02/17 [History] Albuterol Sulfate [Proair Hfa] 2 puff IH Q6H PRN 06/10/17 [History] Carvedilol [Coreg] 6.25 mg PO BID 06/10/17 [History] Aspirin Enteric Coated [Aspirin EC] 81 mg PO DAILY #30 tablet. 06/12/17 [Rx] Furosemide [Lasix] 40 mg PO BID 06/21/17 [History] Potassium Chloride [Klor-Con 10] 10 meq PO DAILY 06/21/17 [History] Warfarin [Coumadin] 2.5 mg PO SUTUWETHFRSA 06/21/17 [History] Warfarin [Coumadin] 5 mg PO MO 06/21/17 [History] 3 Allergy/AdvReac Type Severity Reaction Status Date / Time No Known Allergies Allergy Verified 07/16/17 11:56 All Systems PM: A 10-system review of systems was performed and is negative for pertinent findings except as documented above in the HPI. - Constitutional Constitutional: as per HPI, weakness, weight gain, no chills, no fever(s), no night sweats - EENT Eyes: no change in vision, no discharge, no pain, no photophobia Ears: no ear discharge, no ear pain, no tinnitus Nose, mouth and throat: no dysphagia, no nasal discharge, no neck pain, no sore throat - Breasts Breasts: as per HPI - Cardiovascular Cardiovascular ROS IM: as per HPI, dyspnea, dyspnea on exertion, edema ( Bialteral pedal), orthopnea, no chest pain, no diaphoresis, no lightheadedness, no palpitations, no syncope - Respiratory Respiratory: as per HPI, cough, dyspnea, dyspnea on exertion, wheezing, chest congestion - Gastrointestinal Gastrointestinal: no abdominal pain, no diarrhea, no hematemesis, no hematochezia, no melena, no nausea, no vomiting - Genitourinary Genitourinary: no change in urinary stream, no dysuria, no flank pain, no hematuria Menstruation: as per HPI, post hysterectomy - Musculoskeletal Musculoskeletal ROS IM: no numbness, no tingling - Integumentary Integumentary IM: no rash, no unusual bruising - Neurological Neurological ROS: no confusion, no convulsions, no focal weakness, no numbness, no tingling, no tremor(s) - Psychiatric Psychiatric: as per HPI - Endocrine Endocrine IM: as per HPI - Hematologic/Lymphatic Hematologic/Lymphatic: no easy bruising - Allergic/Immunologic Allergic/Immunologic: as per HPI - Constitutional Vitals: Temp Pulse Resp BP Pulse Ox 97.4 F L 80 22 113/65 97 07/16/17 11:51 07/16/17 16:20 07/16/17 16:20 07/16/17 16:20 07/16/17 16:20 General appearance: Present: cooperative, mild distress, A&O X 3, pleasant, obese, answers questions appropriately - Head Head exam: Present: atraumatic, normal inspection, normocephalic - Eye Eye exam: Present: PERRL, conjuntiva pink, sclera anicteric Pupils: Present: PERRL - ENT ENT exam: Present: normal exam, normal external ear exam - Neck Neck exam general surgery: Present: normal inspection, supple, trachea midline. Absent: lymphadenopathy - Respiratory Respiratory exam: Present: decreased breath sounds. Absent: accessory muscle use, rales, rhonchi, wheezes - Cardiovascular Cardiovascular exam: Present: RRR, +S1, +S2. Absent: diastolic murmur, gallop, rubs, systolic murmur - GI/Abdominal GI/Abdominal exam: Present: normal bowel sounds, soft, no peritoneal signs. Absent: distended, tenderness - Rectal Rectal exam: Present: deferred - Additional comments: exam deferred. - Extremities Exam Extremities exam: Present: pedal edema, warm, radial pulses palpable and symmetrical. Absent: calf tenderness, cyanotic - Back Exam Back exam: Present: normal inspection - Neurological Exam Neurological exam: Present: CN II-XII intact, oriented X3, no focal deficits. Absent: pronater drift, facial droop, speech deficit - Psychiatric Psychiatric exam: Present: anxious - Skin Skin exam: Present: dry, intact Internal Med - H&P Results - Labs CBC & Chem 7: 07/16/17 12:43 07/16/17 17:58 - ABG Interpretation ABG results: 07/16/17 15:45 VBG pH 7.25 L VBG pCO2 97 H* VBG pO2 44 VBG HCO3 42 H - EKG Data EKG shows normal: sinus rhythm - EKG Data Prior EKG available for review: no EKG comments: 07/16/17 17:43 EKG dated 07/16/17 shows sinus rhythm with low QRS voltage and extremity leads. Pattern consistent with pulmonary disease. Abnormal ECG. - Diagnostic Studies Chest x-ray Additional comments: Impressions Chest X-Ray 07/16/17 12:10 IMPRESSION: Low lung volumes. Mild pulmonary vascular congestion Bilateral pleural effusions, mild to moderate on the left, moderate to severe on the right, progressed. D/ / Venkatesh Ayers MD / Venkatesh Ayers MD Interpreting Provider: Venkatesh Ayers MD Other Images Additional comments: Impressions Chest CTA 07/16/17 13:26 IMPRESSION: Negative study for pulmonary emboli. Large bilateral pleural effusions, right larger than left, with likely associated compressive atelectasis to the lungs bilaterally to include near complete opacification of right lower lobe. Atherosclerosis to include coronary artery disease. Ascites to left upper quadrant. D/ / 07/16/2017 15:05:48 Addy Mccabe MD / minnie Interpreting Provider: Addy Mccabe MD <Abraham Booth P - Last Filed: 07/16/17 18:36> Date of Encounter: 07/16/17 Internal Medicine - H&P: HPI History of present illness: Ms. Quintero is a 77 year old female All Systems PM: A 10-system review of systems was performed and is negative for pertinent findings except as documented above in the HPI. - Constitutional Vitals: Temp Pulse Resp BP Pulse Ox 97.4 F L 77 20 113/64 92 07/16/17 11:51 07/16/17 17:43 07/16/17 17:43 07/16/17 17:43 07/16/17 17:43 Internal Med - H&P Results - Labs CBC & Chem 7: 07/16/17 12:43 07/16/17 17:58 Labs: BMP 07/16/17 17:58 Sodium 143 Potassium 4.9 H Chloride 96 L Carbon Dioxide 41 H* BUN 50 H Creatinine 1.64 H Glucose 107 H Calcium 9.6 Cardiac Enzymes 07/16/17 Range/Units 17:58 Troponin I 0.01 (0-0.03) ng/mL Liver Function 07/16/17 Range/Units 17:58 Total Bilirubin 0.2 (0.2-1.2) mg/dL AST 19 (5-34) Units/L ALT 10 (0-55) Units/L Alkaline Phosphatase 58 (38-126) Units/L Albumin 3.2 L (3.5-5.0) g/dL - Attending Attestation I examined this patient and my medical decision-making was reviewed with the Resident Physician. I agree with the documented findings, disposition and treatment plan as described except to the extent set forth below. Very complicated past medical history and multiple comorbidities Has a previous history of for DVT/PE. Noted that patient has a bilateral pleural effusion which needs to be evaluated. This patient might have some underlying malignancy which needs to be worked up. Plan: We did this patient symptomatically for CHF/COPD exacerbation. Close follow-up It is worth involving hematology oncology for help if possible.
[2017-07-16] MEDS ORDERED: Vancomycin 1,250 MG in D5% in Water 250 ML IVPB SCH ×2 (18:00→19:00)
[2017-07-16] MEDS ORDERED: Warfarin perPT PO PRN (18:00)
[2017-07-16 18:20] LABS: Albumin 3.2 g/dL (3.5-5.0); Bilirubin,Total 0.2 mg/dL (0.2-1.2); Calcium 9.6 mg/dL (8.6-10.8); Globulin 3.1 g/dL (2.4-3.5); Potassium 4.9 mEq/L (3.5-4.5); Total Protein 6.3 g/dL (6.0-8.3)
[2017-07-16] MEDS ORDERED: *HR* Warfarin 5 MG TABLET PO ONE (18:32)
[2017-07-16] MEDS: Furosemide 20 MG/2 ML VIAL IVP SCH (19:59)
[2017-07-16] MEDS: Piperacillin/Tazobactam 3.375 GM in D5% in Water 50 ML IVPB SCH (19:59)
[2017-07-16] MEDS: Ipratropium/Albuterol Neb 3 ML IH SCH ×2 (20:00→23:17)
[2017-07-16] MEDS ORDERED: Furosemide 20 MG/2 ML VIAL IVP SCH (21:00)
[2017-07-16] MEDS: MethylPREDNISolone 40 MG/ML VIAL IVP SCH (23:54)
[2017-07-17 01:08] LABS: Basophils % 0.6 %; Hematocrit 30.6 % (35.3-44.9); Hemoglobin 8.8 g/dL (11.5-15.4); Mean Corpuscular HGB Conc 28.8 g/dL (31.6-35.5)
[2017-07-17 01:09] LABS: Eosinophils # 0.1 K/mcL (0.0-0.6); Eosinophils % 2.4 %; Immature Granulocytes % 0.6 % (0-4); Lymphocytes # 0.7 K/mcL (0.6-4.6); Mean Corpuscular Hemoglobin 23.8 pg (28.0-33.3); Mean Corpuscular Volume 82.7 fL (83.0-100.0); Monocytes # 0.6 K/mcL (0.0-1.3); Monocytes % 11.2 %; Neutrophils # 3.6 K/mcL (1.6-8.9); Nucleated Red Blood Cells 0.4 /100 WBC (0); Platelet Count 228 K/mcL (140-400); Red Cell Distribution Width 19.8 % (11.5-14.5); Segmented Neutrophils % 71.2 %
[2017-07-17 01:14] LABS: INR 1.5; Prothrombin Time 16.3 Seconds (9.4-12.1)
[2017-07-17 01:25] LABS: Chol/HDL Ratio 3.9 (0-4.9); Magnesium 2.2 mg/dL (1.6-2.6)
[2017-07-17 01:47] LABS: Anisocytosis 1+ (Not Present); Platelet Estimate Normal (Normal)
[2017-07-17] MEDS: Piperacillin/Tazobactam 3.375 GM in D5% in Water 50 ML IVPB SCH ×3 (02:49→19:33)
[2017-07-17] MEDS: Ipratropium/Albuterol Neb 3 ML IH SCH ×5 (03:17→20:55)
[2017-07-17] MEDS: Furosemide 20 MG/2 ML VIAL IVP SCH ×2 (08:43→16:59)
[2017-07-17] MEDS: Aspirin Enteric Coated 81 MG Tablet PO SCH (08:43)
[2017-07-17] MEDS: MethylPREDNISolone 40 MG/ML VIAL IVP SCH ×3 (08:46→23:27)
[2017-07-17] MEDS: Acetaminophen 325 MG TABLET PO PRN ×2 (08:48→23:26)
--- NOTE | 2017-07-17 16:44 | Electrocardiograph Report ---
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
[2017-07-17] MEDS ORDERED: *HR* Warfarin 3 MG TABLET PO ONE (18:00)
--- NOTE | 2017-07-17 19:23 | Internal Med Progress Note ---
Date of Encounter: 07/17/17 Time of Encounter: 19:21 - Assessment and plan (1) HTN (hypertension) Current Visit: Yes Status: Chronic Qualifiers: Hypertension type: essential hypertension Qualified Code(s): I10 - Essential (primary) hypertension (2) DVT prophylaxis Current Visit: Yes Status: Acute Assessment and plan: On Coumadin. Daily INR. (3) Chronic kidney disease, stage III (moderate) Current Visit: Yes Status: Chronic Assessment and plan: Monitor GFR. Avoid nephrotoxins. (4) Bilateral pleural effusion Current Visit: Yes Status: Acute Assessment and plan: IV Lasix. (5) Acute and chronic respiratory failure Current Visit: Yes Status: Acute Assessment and plan: Oxygen by nasal cannula. Qualifiers: Respiratory failure complication: hypoxia Qualified Code(s): J96.21 - Acute and chronic respiratory failure with hypoxia (6) Hx of deep venous thrombosis Current Visit: Yes Status: Acute Assessment and plan: Continue Coumadin. Daily INR. (7) Acute exacerbation of CHF (congestive heart failure) Current Visit: Yes Status: Acute Qualifiers: Congestive heart failure type: unspecified congestive heart failure type Qualified Code(s): I50.9 - Heart failure, unspecified (8) Pneumonia Current Visit: Yes Status: Acute Assessment and plan: IV Zosyn and vancomycin. Follow-up blood culture and sputum culture. Qualifiers: Pneumonia type: due to unspecified organism Laterality: right Lung location: lower lobe of lung Qualified Code(s): J18.1 - Lobar pneumonia, unspecified organism - Subjective Interval history: Patient reports mild improvement in shortness of breath, continues to complain of significant bilateral lower extremity swelling. - Constitutional Vitals: Temp Pulse Resp BP Pulse Ox 97.4 F L 80 17 118/75 95 07/17/17 19:05 07/17/17 19:05 07/17/17 19:05 07/17/17 19:05 07/17/17 19:05 General appearance: Present: cooperative, mild distress, A&O X 3, pleasant, obese, answers questions appropriately - Respiratory Respiratory exam: Present: decreased breath sounds, CTAB. Absent: accessory muscle use, rales, rhonchi, wheezes - Cardiovascular Cardiovascular exam: Present: RRR, +S1, +S2. Absent: diastolic murmur, gallop, rubs, systolic murmur - GI/Abdominal GI/Abdominal exam: Present: normal bowel sounds, soft, no peritoneal signs. Absent: distended, tenderness - Extremities Exam Extremities exam: Present: pedal edema, warm, radial pulses palpable and symmetrical. Absent: calf tenderness, cyanotic - Neurological Exam Neurological exam: Present: CN II-XII intact, oriented X3, no focal deficits. Absent: pronater drift, facial droop, speech deficit - Skin Skin exam: Present: dry, intact Internal Medicine: Result - Labs CBC & Chem 7: 07/17/17 00:41 07/17/17 00:41 Labs: Short CBC 07/17/17 Range/Units 00:41 WBC 5.0 (4.3-11.1) K/mcL Hgb 8.8 L (11.5-15.4) g/dL Hct 30.6 L (35.3-44.9) % Plt Count 228 (140-400) K/mcL Neutrophils # 3.6 (1.6-8.9) K/mcL BMP 07/17/17 00:41 Creatinine 1.75 H Cardiac Enzymes 07/17/17 Range/Units 00:41 Troponin I 0.00 (0-0.03) ng/mL - ABG Interpretation ABG results: PT/INR, D-dimer PT 16.3 Seconds (9.4-12.1) H 07/17/17 00:41 Consult Discharge Plan - Plan Referrals: Robles Koch MD [Primary Care Provider] -
[2017-07-17] MEDS ORDERED: Vancomycin 1,250 MG in D5% in Water 250 ML IVPB ONE (20:00)
[2017-07-17] MEDS ORDERED: Vancomycin 1,750 MG in D5% in Water 500 ML IVPB SCH (20:00)
[2017-07-18] MEDS: Ipratropium/Albuterol Neb 3 ML IH SCH ×7 (01:01→23:08)
[2017-07-18] MEDS: Piperacillin/Tazobactam 3.375 GM in D5% in Water 50 ML IVPB SCH ×2 (03:31→10:59)
[2017-07-18 04:55] LABS: Hemoglobin 9.2 g/dL (11.5-15.4); Immature Granulocytes % 0.7 % (0-4); Lymphocytes # 0.3 K/mcL (0.6-4.6); Lymphocytes % 7.7 %; Mean Corpuscular HGB Conc 29.7 g/dL (31.6-35.5); Mean Corpuscular Hemoglobin 24.1 pg (28.0-33.3); Mean Corpuscular Volume 81.4 fL (83.0-100.0); Mean Platelet Volume 10.3 fL (9.4-12.4); Monocytes # 0.2 K/mcL (0.0-1.3); Monocytes % 3.4 %; Neutrophils # 3.9 K/mcL (1.6-8.9); Platelet Count 229 K/mcL (140-400); Red Blood Count 3.81 M/mcL (3.82-4.97); Red Cell Distribution Width 19.5 % (11.5-14.5); Segmented Neutrophils % 88.2 %
[2017-07-18 04:56] LABS: Prothrombin Time 21.5 Seconds (9.4-12.1)
[2017-07-18] MEDS: Aspirin Enteric Coated 81 MG Tablet PO SCH (07:57)
[2017-07-18] MEDS: MethylPREDNISolone 40 MG/ML VIAL IVP SCH ×2 (07:57→17:34)
[2017-07-18] MEDS: Furosemide 20 MG/2 ML VIAL IVP SCH (07:57)
[2017-07-18] MEDS ORDERED: Aminoglycoside Consult 1 EACH MC ONE (10:16)
--- NOTE | 2017-07-18 13:31 | Internal Med Progress Note ---
Date of Encounter: 07/18/17 Time of Encounter: 13:28 - Assessment and plan (1) HTN (hypertension) Current Visit: Yes Status: Chronic Assessment and plan: Continue with Coreg. Blood pressure well-controlled today. Qualifiers: Hypertension type: essential hypertension Qualified Code(s): I10 - Essential (primary) hypertension (2) DVT prophylaxis Current Visit: Yes Status: Acute Assessment and plan: On Coumadin. Daily INR. (3) Chronic kidney disease, stage III (moderate) Current Visit: Yes Status: Chronic Assessment and plan: Monitor GFR. Avoid nephrotoxins. Gentle diuresis. Check BUN and creatinine today. (4) Bilateral pleural effusion Current Visit: Yes Status: Acute Assessment and plan: Continue with IV Lasix. Unlikely to significantly improve with medical therapy , patient is symptomatic secondary to large bilateral pleural effusions therefore will require thoracentesis. Discussed with the radiologist and he will perform the procedure today. We will send pleural fluid studies. (5) Acute and chronic respiratory failure Current Visit: Yes Status: Acute Assessment and plan: Oxygen by nasal cannula. She was started on treatment for suspected pneumonia with broad-spectrum IV antibiotics. She remained afebrile. Blood cultures are negative. WBC is within normal range. She does not have clinical evidence of pneumonia and therefore I will stop the antibiotics. Pneumonia has been ruled out. Qualifiers: Respiratory failure complication: hypoxia Qualified Code(s): J96.21 - Acute and chronic respiratory failure with hypoxia (6) Hx of deep venous thrombosis Current Visit: Yes Status: Acute Assessment and plan: Continue Coumadin. Daily INR. He is in the therapeutic range today. Repeat lower extremity Dopplers are negative for DVT. (7) Acute exacerbation of CHF (congestive heart failure) Current Visit: Yes Status: Acute Assessment and plan: Continues to have significant lower extremity pitting edema. Echocardiogram shows normal EF and diastolic dysfunction. We will increase Lasix to 40 mg IV twice a day. Qualifiers: Congestive heart failure type: unspecified congestive heart failure type Qualified Code(s): I50.9 - Heart failure, unspecified (8) Pneumonia Current Visit: Yes Status: Acute Assessment and plan: This has been ruled out. As above.. Qualifiers: Pneumonia type: due to unspecified organism Laterality: right Lung location: lower lobe of lung Qualified Code(s): J18.1 - Lobar pneumonia, unspecified organism - Subjective Interval history: 07/18: Patient reports shortness of breath, worse with minimal exertion, described this as she cannot get enough air. She reports associated lower extremity swelling. No significant improvement in her symptoms over the last 24 hours. 8: Patient reports mild improvement in shortness of breath, continues to complain of significant bilateral lower extremity swelling. - Constitutional Vitals: Temp Pulse Resp BP Pulse Ox 97.5 F L 63 20 111/67 90 07/18/17 10:55 07/18/17 10:55 07/18/17 10:55 07/18/17 10:55 07/18/17 10:55 General appearance: Present: cooperative, mild distress, A&O X 3, pleasant, obese, answers questions appropriately - Eye Eye exam: Present: PERRL, conjuntiva pink, sclera anicteric Pupils: Present: PERRL - Respiratory Respiratory exam: Present: decreased breath sounds (Severely decreased breath sounds mostly at the right base, also the left), CTAB. Absent: accessory muscle use, rales, rhonchi, wheezes - Cardiovascular Cardiovascular exam: Present: RRR, +S1, +S2. Absent: diastolic murmur, gallop, rubs, systolic murmur - GI/Abdominal GI/Abdominal exam: Present: normal bowel sounds, soft, no peritoneal signs. Absent: distended, tenderness - Extremities Exam Extremities exam: Present: pedal edema (2+ lower extremity pitting edema), warm , radial pulses palpable and symmetrical. Absent: calf tenderness, cyanotic - Neurological Exam Neurological exam: Present: CN II-XII intact, oriented X3, no focal deficits. Absent: pronater drift, facial droop, speech deficit - Skin Skin exam: Present: dry, intact Internal Medicine: Result - Labs CBC & Chem 7: 07/18/17 03:41 07/17/17 00:41 Labs: Short CBC 07/18/17 Range/Units 03:41 WBC 4.4 (4.3-11.1) K/mcL Hgb 9.2 L (11.5-15.4) g/dL Hct 31.0 L (35.3-44.9) % Plt Count 229 (140-400) K/mcL Neutrophils # 3.9 (1.6-8.9) K/mcL - ABG Interpretation ABG results: PT/INR, D-dimer PT 21.5 Seconds (9.4-12.1) H 07/18/17 03:41 - Impressions Her record review echocardiogram in June 2017 showed LVEF of 65%, normal systolic function, LVH with mild diastolic dysfunction, moderate pulmonary hypertension and normal right ventricular function. Consult Discharge Plan - Plan Referrals: Robles Koch MD [Primary Care Provider] -
[2017-07-18 13:51] LABS: Calcium 9.7 mg/dL (8.6-10.8); Potassium 5.1 mEq/L (3.5-4.5)
[2017-07-18] MEDS ORDERED: ALPRAZolam 0.5 MG TABLET PO ONE (14:21)
[2017-07-18 14:46] LABS: Glucose,Pleural Fluid 157 mg/dL (No Ref Range); LDH,Pleural Fluid 161 Units/L (No Ref Range)
[2017-07-18 14:49] LABS: Total Protein,Pleural Fluid 4.9 g/dL (No Ref Range)
[2017-07-18 14:52] LABS: RBC,Pleural Fluid 0.081 M/mcL
--- NOTE | 2017-07-18 15:51 | IR Procedure Note ---
Date of procedure: 07/18/17 Consent Obtained: Written consent Timeout: Correct patient and procedure verified, Correct site verified, Time out performed, Skin prep completed Local anesthetic: Lidocaine 1% Indications: Bilateral effusions Procedure Performed: Bilateral thoracentesis Site/Technique: Right and left chest drained. Results/Findings: 1000ml from Left, 1500ml from Right Estimated blood loss (cc): 1 Complications: None; Tolerated procedure well Post Procedure Treatment Plan: Monitoring in pts room.
[2017-07-18] MEDS: Furosemide 40 MG/4 ML VIAL IVP SCH (17:34)
[2017-07-18] MEDS ORDERED: *HR* Warfarin 2.5 MG TABLET PO ONE (18:00)
[2017-07-19] MEDS: Ipratropium/Albuterol Neb 3 ML IH SCH ×6 (03:37→23:20)
[2017-07-19 05:53] LABS: Hematocrit 28.7 % (35.3-44.9); Hemoglobin 8.6 g/dL (11.5-15.4); Immature Granulocytes % 0.7 % (0-4); Lymphocytes # 0.4 K/mcL (0.6-4.6); Lymphocytes % 6.3 %; Mean Corpuscular Hemoglobin 24.1 pg (28.0-33.3); Mean Corpuscular Volume 80.4 fL (83.0-100.0); Mean Platelet Volume 10.7 fL (9.4-12.4); Monocytes # 0.7 K/mcL (0.0-1.3); Monocytes % 9.5 %; Platelet Count 248 K/mcL (140-400); Red Blood Count 3.57 M/mcL (3.82-4.97); Segmented Neutrophils % 83.5 %
[2017-07-19 05:54] LABS: Neutrophils # 5.9 K/mcL (1.6-8.9)
[2017-07-19] MEDS: MethylPREDNISolone 40 MG/ML VIAL IVP SCH ×2 (05:56→17:15)
[2017-07-19 05:58] LABS: Prothrombin Time 21.8 Seconds (9.4-12.1)
[2017-07-19 06:21] LABS: Calcium 9.1 mg/dL (8.6-10.8); Potassium 4.3 mEq/L (3.5-4.5)
[2017-07-19] MEDS: Aspirin Enteric Coated 81 MG Tablet PO SCH (08:35)
--- NOTE | 2017-07-19 17:08 | Internal Med Progress Note ---
Date of Encounter: 07/19/17 Time of Encounter: 13:00 - Assessment and plan (1) HTN (hypertension) Current Visit: Yes Status: Chronic Assessment and plan: Continue with Coreg. Blood pressure well-controlled today. Qualifiers: Hypertension type: essential hypertension Qualified Code(s): I10 - Essential (primary) hypertension (2) DVT prophylaxis Current Visit: Yes Status: Acute Assessment and plan: On Coumadin. Daily INR. (3) Chronic kidney disease, stage III (moderate) Current Visit: Yes Status: Chronic Assessment and plan: Monitor GFR. Avoid nephrotoxins. Gentle diuresis. Check BUN and creatinine today. (4) Bilateral pleural effusion Current Visit: Yes Status: Acute Assessment and plan: Status post bilateral thoracentesis yesterday with 1.5 L removed from the right side in 1 L removed from the left side. With symptomatic improvement. I will have to hold off on Lasix due to worsening kidney failure. We will continue to monitor. Continue with cannula oxygen supplementation. (5) Acute and chronic respiratory failure Current Visit: Yes Status: Acute Assessment and plan: Oxygen by nasal cannula. She was started on treatment for suspected pneumonia with broad-spectrum IV antibiotics. She remained afebrile. Blood cultures are negative. WBC is within normal range. She does not have clinical evidence of pneumonia and therefore I will stop the antibiotics. Pneumonia has been ruled out. Qualifiers: Respiratory failure complication: hypoxia Qualified Code(s): J96.21 - Acute and chronic respiratory failure with hypoxia (6) Hx of deep venous thrombosis Current Visit: Yes Status: Acute Assessment and plan: Continue Coumadin. Daily INR. He is in the therapeutic range today. Repeat lower extremity Dopplers are negative for DVT. (7) Acute exacerbation of CHF (congestive heart failure) Current Visit: Yes Status: Acute Assessment and plan: Continues to have significant lower extremity pitting edema. Echocardiogram shows normal EF and diastolic dysfunction. Hold Lasix due to worsening renal failure. Continue with fluid restriction and daily weights. Qualifiers: Congestive heart failure type: unspecified congestive heart failure type Qualified Code(s): I50.9 - Heart failure, unspecified (8) Pneumonia Current Visit: Yes Status: Acute Assessment and plan: Blood cultures negative. Patient does have symptoms of pneumonia. Pleural fluid with no growth, no bacteria on Gram stain. Pneumonia has been ruled out. Qualifiers: Pneumonia type: due to unspecified organism Laterality: right Lung location: lower lobe of lung Qualified Code(s): J18.1 - Lobar pneumonia, unspecified organism - Subjective Interval history: 07/19: Patient reports shortness of breath has improved from yesterday. She continues to have lower extremity edema. She had bilateral thoracentesis done yesterday. She reports significant symptomatic improvement. 07/18: Patient reports shortness of breath, worse with minimal exertion, described this as she cannot get enough air. She reports associated lower extremity swelling. No significant improvement in her symptoms over the last 24 hours. 8: Patient reports mild improvement in shortness of breath, continues to complain of significant bilateral lower extremity swelling. - Constitutional Vitals: Temp Pulse Resp BP Pulse Ox 97.6 F 81 14 153/85 97 07/19/17 15:29 07/19/17 15:29 07/19/17 15:29 07/19/17 15:29 07/19/17 15:29 General appearance: Present: cooperative, mild distress, A&O X 3, pleasant, obese, answers questions appropriately - Respiratory Respiratory exam: Present: decreased breath sounds (Decreased breath sounds at both bases.), CTAB. Absent: accessory muscle use, rales, rhonchi, wheezes - Cardiovascular Cardiovascular exam: Present: RRR, +S1, +S2. Absent: diastolic murmur, gallop, rubs, systolic murmur - GI/Abdominal GI/Abdominal exam: Present: normal bowel sounds, soft, no peritoneal signs. Absent: distended, tenderness - Extremities Exam Extremities exam: Present: pedal edema, warm, radial pulses palpable and symmetrical. Absent: calf tenderness, cyanotic - Neurological Exam Neurological exam: Present: CN II-XII intact, oriented X3, no focal deficits. Absent: pronater drift, facial droop, speech deficit - Skin Skin exam: Present: dry, intact Internal Medicine: Result - Labs CBC & Chem 7: 07/19/17 04:38 07/19/17 04:38 Labs: Short CBC 07/19/17 Range/Units 04:38 WBC 7.0 D (4.3-11.1) K/mcL Hgb 8.6 L (11.5-15.4) g/dL Hct 28.7 L (35.3-44.9) % Plt Count 248 (140-400) K/mcL Neutrophils # 5.9 (1.6-8.9) K/mcL BMP 07/19/17 04:38 Sodium 140 Potassium 4.3 Chloride 95 L Carbon Dioxide 38 H BUN 62 H Creatinine 1.94 H Glucose 106 H Calcium 9.1 - ABG Interpretation ABG results: PT/INR, D-dimer PT 21.8 Seconds (9.4-12.1) H 07/19/17 04:38 Consult Discharge Plan - Plan Referrals: Robles Koch MD [Primary Care Provider] -
[2017-07-19] MEDS ORDERED: *HR* Warfarin 2.5 MG TABLET PO ONE (18:00)
[2017-07-20 04:54] LABS: Basophils % 0.2 %; Hematocrit 26.6 % (35.3-44.9); Hemoglobin 7.8 g/dL (11.5-15.4); Lymphocytes # 0.5 K/mcL (0.6-4.6); Lymphocytes % 8.4 %; Mean Corpuscular HGB Conc 29.3 g/dL (31.6-35.5); Mean Corpuscular Hemoglobin 23.7 pg (28.0-33.3); Mean Corpuscular Volume 80.9 fL (83.0-100.0); Mean Platelet Volume 10.1 fL (9.4-12.4); Monocytes # 0.6 K/mcL (0.0-1.3); Monocytes % 9.9 %; Neutrophils # 4.8 K/mcL (1.6-8.9); Platelet Count 212 K/mcL (140-400); Red Blood Count 3.29 M/mcL (3.82-4.97); Red Cell Distribution Width 19.9 % (11.5-14.5); Segmented Neutrophils % 80.5 %
[2017-07-20] MEDS: Ipratropium/Albuterol Neb 3 ML IH SCH ×6 (04:56→23:16)
[2017-07-20 05:04] LABS: Calcium 8.8 mg/dL (8.6-10.8); Potassium 4.3 mEq/L (3.5-4.5)
[2017-07-20 05:05] LABS: INR 1.8; Prothrombin Time 19.6 Seconds (9.4-12.1)
[2017-07-20] MEDS: MethylPREDNISolone 40 MG/ML VIAL IVP SCH ×2 (05:19→16:55)
[2017-07-20] MEDS: Furosemide 40 MG/4 ML VIAL IVP SCH (06:58)
[2017-07-20] MEDS: Aspirin Enteric Coated 81 MG Tablet PO SCH (09:14)
[2017-07-20] MEDS: Acetaminophen 325 MG TABLET PO PRN (09:22)
[2017-07-20] MEDS: Furosemide 40 MG TABLET PO SCH ×2 (14:10→16:23)
--- NOTE | 2017-07-20 17:23 | Internal Med Progress Note ---
Date of Encounter: 07/20/17 Time of Encounter: 13:00 - Assessment and plan (1) HTN (hypertension) Current Visit: Yes Status: Chronic Assessment and plan: Continue with Coreg. Blood pressure well-controlled today. Qualifiers: Hypertension type: essential hypertension Qualified Code(s): I10 - Essential (primary) hypertension (2) DVT prophylaxis Current Visit: Yes Status: Acute Assessment and plan: On Coumadin. Daily INR. (3) Chronic kidney disease, stage III (moderate) Current Visit: Yes Status: Chronic Assessment and plan: Monitor GFR. Avoid nephrotoxins. Gentle diuresis. Per chart review her creatinine was within normal range in September 2016, her current baseline is 1.5. Creatinine trending down today after we stopped Lasix. (4) Bilateral pleural effusion Current Visit: Yes Status: Acute Assessment and plan: Status post bilateral thoracentesis yesterday with 1.5 L removed from the right side in 1 L removed from the left side. With symptomatic improvement. I will have to hold off on Lasix due to worsening kidney failure. We will continue to monitor. Continue with cannula oxygen supplementation. (5) Acute and chronic respiratory failure Current Visit: Yes Status: Acute Assessment and plan: Oxygen by nasal cannula. She was started on treatment for suspected pneumonia with broad-spectrum IV antibiotics. She remained afebrile. Blood cultures are negative. WBC is within normal range. She does not have clinical evidence of pneumonia and therefore I will stop the antibiotics. Pneumonia has been ruled out. Qualifiers: Respiratory failure complication: hypoxia Qualified Code(s): J96.21 - Acute and chronic respiratory failure with hypoxia (6) Hx of deep venous thrombosis Current Visit: Yes Status: Acute Assessment and plan: Continue Coumadin. Daily INR. He is in the therapeutic range today. Repeat lower extremity Dopplers are negative for DVT. (7) Acute exacerbation of CHF (congestive heart failure) Current Visit: Yes Status: Acute Assessment and plan: Continues to have significant lower extremity pitting edema. Echocardiogram shows normal EF and diastolic dysfunction. Resumed home dose of Lasix 40 mg oral daily and continue to trend I's and O's Continue with fluid restriction and daily weights. Qualifiers: Congestive heart failure type: unspecified congestive heart failure type Qualified Code(s): I50.9 - Heart failure, unspecified - Subjective Interval history: 07/20/2017: She reports mild shortness of breath at rest, moderate with exertion. She says that her oxygen saturation dropped to 87% walking to the bathroom. 07/19: Patient reports shortness of breath has improved from yesterday. She continues to have lower extremity edema. She had bilateral thoracentesis done yesterday. She reports significant symptomatic improvement. 07/18: Patient reports shortness of breath, worse with minimal exertion, described this as she cannot get enough air. She reports associated lower extremity swelling. No significant improvement in her symptoms over the last 24 hours. 8: Patient reports mild improvement in shortness of breath, continues to complain of significant bilateral lower extremity swelling. - Constitutional Vitals: Temp Pulse Resp BP Pulse Ox 97.7 F 75 16 128/76 97 07/20/17 15:24 07/20/17 15:24 07/20/17 15:45 07/20/17 15:24 07/20/17 15:45 General appearance: Present: cooperative, mild distress, A&O X 3, pleasant, obese, answers questions appropriately - Eye Eye exam: Present: PERRL, conjuntiva pink, sclera anicteric Pupils: Present: PERRL - Respiratory Respiratory exam: Present: rales. Absent: accessory muscle use, rhonchi, wheezes - Cardiovascular Cardiovascular exam: Present: RRR, +S1, +S2. Absent: diastolic murmur, gallop, rubs, systolic murmur - GI/Abdominal GI/Abdominal exam: Present: normal bowel sounds, soft, no peritoneal signs. Absent: distended, tenderness - Extremities Exam Extremities exam: Present: pedal edema, warm, radial pulses palpable and symmetrical. Absent: calf tenderness, cyanotic - Skin Skin exam: Present: dry, intact Internal Medicine: Result - Labs CBC & Chem 7: 07/20/17 04:20 07/20/17 04:20 Labs: Short CBC 07/20/17 Range/Units 04:20 WBC 6.0 (4.3-11.1) K/mcL Hgb 7.8 L (11.5-15.4) g/dL Hct 26.6 L (35.3-44.9) % Plt Count 212 (140-400) K/mcL Neutrophils # 4.8 (1.6-8.9) K/mcL BMP 07/20/17 04:20 Sodium 141 Potassium 4.3 Chloride 96 L Carbon Dioxide 38 H BUN 56 H Creatinine 1.63 H Glucose 115 H Calcium 8.8 - ABG Interpretation ABG results: PT/INR, D-dimer PT 19.6 Seconds (9.4-12.1) H 07/20/17 04:20 - VTE Documentation of Mechanical Device: Graduated compression elastic hosiery Consult Discharge Plan - Plan Referrals: Robles Koch MD [Primary Care Provider] -
[2017-07-20] MEDS ORDERED: *HR* Warfarin 5 MG TABLET PO ONE (18:00)
[2017-07-21] MEDS: Ipratropium/Albuterol Neb 3 ML IH SCH ×4 (03:31→15:29)
[2017-07-21 04:16] LABS: Hematocrit 25.8 % (35.3-44.9); Hemoglobin 7.6 g/dL (11.5-15.4); Immature Granulocytes % 1.6 % (0-4); Lymphocytes # 0.4 K/mcL (0.6-4.6); Lymphocytes % 7.4 %; Mean Corpuscular HGB Conc 29.5 g/dL (31.6-35.5); Mean Corpuscular Hemoglobin 23.9 pg (28.0-33.3); Mean Corpuscular Volume 81.1 fL (83.0-100.0); Mean Platelet Volume 10.5 fL (9.4-12.4); Monocytes # 0.6 K/mcL (0.0-1.3); Monocytes % 10.1 %; Neutrophils # 4.5 K/mcL (1.6-8.9); Platelet Count 203 K/mcL (140-400); Red Blood Count 3.18 M/mcL (3.82-4.97); Red Cell Distribution Width 19.9 % (11.5-14.5); Segmented Neutrophils % 80.9 %
[2017-07-21 04:22] LABS: INR 1.7; Prothrombin Time 18.6 Seconds (9.4-12.1)
[2017-07-21 04:41] LABS: Calcium 9.1 mg/dL (8.6-10.8); Potassium 4.1 mEq/L (3.5-4.5)
[2017-07-21] MEDS: MethylPREDNISolone 40 MG/ML VIAL IVP SCH (06:15)
[2017-07-21] MEDS: Furosemide 40 MG TABLET PO SCH (08:14)
[2017-07-21] MEDS: Aspirin Enteric Coated 81 MG Tablet PO SCH (08:14)
[2017-07-21] MEDS ORDERED: Acetaminophen 325 MG TABLET PO ONE (11:30)
[2017-07-21] MEDS ORDERED: Furosemide 20 MG/2 ML VIAL IVP ONE (14:00)
[2017-07-21] MEDS ORDERED: 0.9 % Sodium Chloride 500 ML ONE (14:43)
--- NOTE | 2017-07-21 16:19 | Discharge Summary ---
Date of Encounter: 07/21/17 Time of Encounter: 16:12 - Discharge Diagnosis (1) HTN (hypertension) Priority: Secondary Status: Chronic Qualifiers: Hypertension type: essential hypertension Qualified Code(s): I10 - Essential (primary) hypertension (2) DVT prophylaxis Priority: Secondary Status: Acute (3) Chronic kidney disease, stage III (moderate) Priority: Secondary Status: Chronic (4) Bilateral pleural effusion Priority: Secondary Status: Acute (5) Acute and chronic respiratory failure Priority: Secondary Status: Acute Qualifiers: Respiratory failure complication: hypoxia Qualified Code(s): J96.21 - Acute and chronic respiratory failure with hypoxia (6) Hx of deep venous thrombosis Priority: Secondary Status: Acute (7) Acute exacerbation of CHF (congestive heart failure) Priority: Primary Status: Acute Qualifiers: Congestive heart failure type: diastolic Qualified Code(s): I50.33 - Acute on chronic diastolic (congestive) heart failure (8) Anemia Priority: Secondary Status: Chronic Qualifiers: Anemia type: due to chronic kidney disease Chronic kidney disease stage: stage 3 (moderate) Qualified Code(s): N18.3 - Chronic kidney disease, stage 3 (moderate); D63.1 - Anemia in chronic kidney disease; D63.1 - Anemia in chronic kidney disease (9) Hx of pulmonary embolus Priority: Secondary Status: Chronic - Discharge Medications Prescriptions: Ferrous Sulfate 325 mg PO BIDWM #60 tablet predniSONE [PredniSONE] 10 mg PO DAILY #10 tablet Home Medications: Albuterol Neb [Proventil Neb] 2.5 mg IH Q4-6H PRN 06/10/17 [History] Albuterol Sulfate [Proair Hfa] 2 puff IH Q6H PRN 06/10/17 [History] Carvedilol [Coreg] 6.25 mg PO BID 06/10/17 [History] Aspirin Enteric Coated [Aspirin EC] 81 mg PO DAILY #30 tablet. 06/12/17 [Rx] Furosemide [Lasix] 40 mg PO BID 06/21/17 [History] Potassium Chloride [Klor-Con 10] 10 meq PO DAILY 06/21/17 [History] Warfarin [Coumadin] 2.5 mg PO SUTUWETHFRSA 06/21/17 [History] Warfarin [Coumadin] 5 mg PO MO 06/21/17 [History] Ferrous Sulfate 325 mg PO BIDWM #60 tablet 07/21/17 [Rx] predniSONE [PredniSONE] 10 mg PO DAILY #10 tablet 07/21/17 [Rx] Allergies/Adverse Reactions: 3 Allergy/AdvReac Type Severity Reaction Status Date / Time No Known Allergies Allergy Verified 07/16/17 11:56 Date of admission: 07/16/17 17:05 Primary care physician: Robles Koch MD - Patient Status Disposition: Home Health Service Condition: Fair Functional capacity at discharge: uses cane/walker Overall status at discharge: patient is progressing back to baseline - Discharge Instructions Follow Up With: Robles Koch MD [Primary Care Provider] - Additional Instructions: Follow-up with your primary care physician within 5-7 days of discharge. Follow a low-sodium diet and 1200 mL fluid restriction. - Diet and Activity Activity: ambulate only with your walker Diet: low salt diet (Fluid restriction of 1200 mL daily) Interval History: Patient's hemoglobin has been trending down during this hospitalization. Today is at 7.6. No evidence of overt bleeding. Iron studies within normal limits, towards the lower end of the normal range. Given her history of heart disease I will transfuse 1 unit PRBC and give an additional dose of IV Lasix. I will start oral ferrous sulfate and recommend close follow-up with PCP for workup of anemia. Hospital course: Ms. Quintero is a 77 year old female with past medical history significant for DVT, PE, bronchial asthma, previous uterine cancer, hypertension, congestive heart failure and bilateral pleural effusions who presented to the emergency department for evaluation of shortness of breath for one month. She was diagnosed with exacerbation of congestive heart failure, worsening pleural effusions and acute on chronic hypoxic respiratory failure. She was admitted to the medical service. Initially a diagnosis of pneumonia was formulated. She received treatment with IV antibiotics and IV steroids. Her blood cultures and sputum culture remained negative and she remained afebrile. Pneumonia was ruled out. She had bilateral thoracentesis with 1000 mL removed from the left and 1500 mL removed from the right pleural space. She tolerated the procedure well. Her symptoms have improved. She underwent diuresis with IV Lasix. She has symptomatically improved. She underwent a 6 minute walk test with supplemental oxygen by nasal cannula at 3 L/m which is her baseline and her oxygen saturation maintained above 91%. Her hemoglobin today has been 7.6 and because of her heart disease she received 1 unit of blood transfusion when she tolerated well. She is currently symptomatically improved and medically stable for discharge home. She was instructed to follow-up with her primary care physician within 5-7 days. She was prescribed a short prednisone taper in addition to oral iron therapy. She is to resume her diuretic therapy with Lasix 40 mg twice daily and follow fluid restriction and salt restricted diet. - Time Spent with Patient Total time spent providing and/or coordinating discharge services: Greater than 30 minutes (I have spent 45 minutes coordinating this discharge.) - Constitutional Vitals: Temp Pulse Resp BP Pulse Ox 98.1 F 74 20 143/74 97 07/21/17 15:20 07/21/17 15:20 07/21/17 15:20 07/21/17 15:20 07/21/17 15:20 General appearance: Present: cooperative, mild distress, A&O X 3, pleasant, obese, answers questions appropriately - Respiratory Respiratory exam: Present: decreased breath sounds (Decreased breath sounds at both bases), CTAB. Absent: accessory muscle use, rales, rhonchi, wheezes - Cardiovascular Cardiovascular exam: Present: RRR, +S1, +S2. Absent: diastolic murmur, gallop, rubs, systolic murmur - GI/Abdominal GI/Abdominal exam: Present: normal bowel sounds, soft, no peritoneal signs. Absent: distended, tenderness - Extremities Exam Extremities exam: Present: pedal edema, warm, radial pulses palpable and symmetrical. Absent: calf tenderness, cyanotic - Skin Skin exam: Present: dry, intact - VTE Documentation of Mechanical Device: Graduated compression elastic hosiery
--- NOTE | 2017-07-21 17:04 | Physician Discharge Referral ---
Home Health/Hosp Referral Info Transfer to: Home Health Provider in Charge Post Discharge: PCP - Diagnosis (1) HTN (hypertension) Status: Chronic (2) DVT prophylaxis Status: Acute (3) Chronic kidney disease, stage III (moderate) Status: Chronic (4) Bilateral pleural effusion Status: Acute (5) Acute and chronic respiratory failure Status: Acute (6) Hx of deep venous thrombosis Status: Acute (7) Acute exacerbation of CHF (congestive heart failure) Status: Acute (8) Anemia Status: Chronic (9) Hx of pulmonary embolus Status: Chronic - Respiratory Orders Oxygen / L per min (3lpm) Smoking Cessation: Smoking cessation has been advised. For more information, call the [place] Tobacco Quit Line at 9-790-BFIS-NOW. - Diet/Nutrition Diet/Nutrition Orders: No Added Salt (MARIA DE JESUS) (1200ml fluid restriction) - Activity Activity Orders: Walker - Services Needed Following services are medically necessary services: Nursing, Home Health Aide, Physical Therapy - Transfer Medications Prescriptions: Ferrous Sulfate 325 mg PO BIDWM #60 tablet predniSONE [PredniSONE] 10 mg PO DAILY #10 tablet Home Medications: Albuterol Neb [Proventil Neb] 2.5 mg IH Q4-6H PRN 06/10/17 [History] Albuterol Sulfate [Proair Hfa] 2 puff IH Q6H PRN 06/10/17 [History] Carvedilol [Coreg] 6.25 mg PO BID 06/10/17 [History] Aspirin Enteric Coated [Aspirin EC] 81 mg PO DAILY #30 tablet. 06/12/17 [Rx] Furosemide [Lasix] 40 mg PO BID 06/21/17 [History] Potassium Chloride [Klor-Con 10] 10 meq PO DAILY 06/21/17 [History] Warfarin [Coumadin] 2.5 mg PO SUTUWETHFRSA 06/21/17 [History] Warfarin [Coumadin] 5 mg PO MO 06/21/17 [History] Ferrous Sulfate 325 mg PO BIDWM #60 tablet 07/21/17 [Rx] predniSONE [PredniSONE] 10 mg PO DAILY #10 tablet 07/21/17 [Rx] Allergies/Adverse Reactions: 3 Allergy/AdvReac Type Severity Reaction Status Date / Time No Known Allergies Allergy Verified 07/16/17 11:56 Certification: Further, I certify that my clinical findings support that this patient is homebound (i.e. absences from home require considerable and taxing effort and are for medical reasons or gnosticist services or infrequently or short duration when for other reasons) because: Homebound Reason: Patient requires assistance of a person or device to safely leave home, Leaving home requires considerable and taxing effort due to condition, Severity of cardiac or pulmonary status limits activity tolerance Attestation: My signature below is to certify that this patient is under my care and that I, or nurse practitioner, or a physician's child and youth program assistant working with me, has a face-to -face encounter with this patient.
[2017-07-21] MEDS ORDERED: Furosemide 40 MG/4 ML VIAL IVP ONE (17:10)
[2017-07-21 17:46] VITALS: BP 149/77
[2017-07-21] MEDS ORDERED: *HR* Warfarin 5 MG TABLET PO ONE (18:00)
== END 2017-07-21 19:00 | disposition home health service (06) | DRG 291 ==
LOC: 2ANU 11:33 → EMEROO 11:33 → SUATTDRO 17:05 → 3BNU 18:27
PROVIDERS: ADMIT Internal Medicine; ATTEND Internal Medicine

== ENCOUNTER 2017-08-06 12:05 | Inpatient (IN) ==
[2017-08-06] MEDS ORDERED: Ipratropium/Albuterol Neb 3 ML ONE (12:31)
[2017-08-06] MEDS ORDERED: Furosemide 40 MG in 0.9 % Sodium Chloride 50 ML IVPB ONE (12:40)
[2017-08-06 12:57] LABS: Basophils % 0.4 %; Eosinophils # 0.2 K/mcL (0.0-0.6); Eosinophils % 2.7 %; Hematocrit 32.5 % (35.3-44.9); Hemoglobin 9.7 g/dL (11.5-15.4); Immature Granulocytes % 0.4 % (0-4); Lymphocytes # 0.6 K/mcL (0.6-4.6); Lymphocytes % 10.2 %; Mean Corpuscular HGB Conc 29.8 g/dL (31.6-35.5); Mean Corpuscular Hemoglobin 25.5 pg (28.0-33.3); Mean Corpuscular Volume 85.5 fL (83.0-100.0); Monocytes # 0.5 K/mcL (0.0-1.3); Monocytes % 8.2 %; Neutrophils # 4.3 K/mcL (1.6-8.9); Platelet Count 199 K/mcL (140-400); Red Cell Distribution Width 19.7 % (11.5-14.5); Segmented Neutrophils % 78.1 %
[2017-08-06 12:59] LABS: INR 1.7; Prothrombin Time 18.6 Seconds (9.4-12.1)
[2017-08-06 13:02] LABS: Activated Partial Thrombo Time 33.8 Seconds (26.0-36.0)
--- NOTE | 2017-08-06 13:17 | Emergency Department Note ---
Disposition Clinical Impression: HCAP (healthcare-associated pneumonia), Bilateral pleural effusion, Exudative pleural effusion Disposition: Admitted As Inpatient Condition: Fair Time of Disposition: 14:56 SOB HPI - General Chief Complaint: ED Shortness of Breath/Dyspnea Stated Complaint: Bilateral Pneumonia Time Seen by Provider: 08/06/17 12:32 Source: patient Mode of arrival: ambulatory Limitations: no limitations Nursing Notes Reviewed: Yes Vital Signs Reviewed: Yes - History of Present Illness 77-year-old female sent to the ED complaining of difficulty in breathing. Patient does have history of CHF. She was being seen by her claims configuration analyst who said that her saturations were down around 80% which is abnormal for she is always on 3 L of oxygen at home. They said that she most likely has noted pleural effusion. Patient was recently admitted to the hospital approximately 2 weeks ago where she had 1000 mL of fluid drained of her right lung and 1500 mL drained off her left lung. Said she was doing well after this. Did help her breathe better. But has slowly had difficult time breathing over the last week or so. She says she believes that she has fluid reaccumulating. Patient' s not complaining of any fevers but is having chills. Does not have any abdominal pain or any other symptoms. The claims configuration analyst was worried that she may have a pneumonia that is causing her shortness of breath and also the hypoxia. I was one reason why she was sent over. Patient is not having any other complaints including headache, blurry vision, neck pain, back pain, abdominal pain, pain with urination, change in bowel movements, pain or tingling of the arms or legs or any other generalized numbness or weakness. On patient's last visit to the hospital she was diagnosed with pulmonary and was not as well as DVT so she was placed on Coumadin. She says she has been taking her medications normally. - Related Data Home Medications Medication Instructions Recorded Confirmed Albuterol Neb [Proventil Neb] 2.5 mg IH Q4-6H PRN 06/10/17 08/06/17 Albuterol Sulfate [Proair Hfa] 2 puff IH Q6H PRN 06/10/17 08/06/17 Carvedilol [Coreg] 6.25 mg PO BID 06/10/17 08/06/17 Furosemide [Lasix] 40 mg PO BID 06/21/17 08/06/17 Potassium Chloride [Klor-Con 10] 10 meq PO DAILY 06/21/17 08/06/17 Warfarin [Coumadin] 2.5 mg PO SUMOWETHSA 06/21/17 08/06/17 Warfarin [Coumadin] 5 mg PO TUFR 06/21/17 08/06/17 Previous Rx's Medication Instructions Recorded Aspirin Enteric Coated [Aspirin EC] 81 mg PO DAILY #30 tablet. 06/12/17 Ferrous Sulfate 325 mg PO BIDWM #60 tablet 07/21/17 predniSONE [PredniSONE] 10 mg PO DAILY #10 tablet 07/21/17 Allergies Allergy/AdvReac Type Severity Reaction Status Date / Time No Known Allergies Allergy Verified 07/16/17 11:56 Review of Systems: 10 point review of systems done and negative unless otherwise stated in history of present illness. All systems ED: reviewed and negative except as stated. Review of Systems: As Per HPI Past Medical History - Past Medical History Attestation: Yes The following information was validated with the patient. Medical history: Reports: asthma, cancer, DVT, hypertension, pulmonary embolus Surgical history: Reports: appendectomy, cholecystectomy, hysterectomy, vascular surgery Psychiatric history: Reports: no psych history PC TECHNICIAN history: Reports: no PC TECHNICIAN history - Social History Smoking Status: Never smoker Smokeless Tobacco Status: No Alcohol use: Reports: none Drug use: Reports: none Physical Exam - General Limitations: no limitations General appearance: alert, in no apparent distress - Head Head exam: atraumatic, normocephalic, normal inspection - Eye Eye exam: Present: normal appearance, PERRL, EOMI - ENT ENT exam: normal exam, normal oropharynx, mucous membranes moist - Neck Neck exam: Present: normal inspection, full ROM, trachea midline - Chest Chest inspection: Present: normal inspection, symmetric chest wall rise - Respiratory Respiratory exam: Absent: respiratory distress, wheezes, accessory muscle use, prolonged expiratory phase - Expanded Respiratory Exam Location: decreased breath sounds: Left, Right, Lower - Cardiovascular Cardiovascular exam: Present: regular rate, normal rhythm, normal heart sounds - Abdominal Exam Abdominal exam: Present: soft, Non-Tender. Absent: tenderness, distention, guarding, rebound, rigidity - Extremities Exam Extremities exam: Present: normal inspection, full ROM, pedal edema (3+ pitting edema on the legs bilaterally.). Absent: tenderness - Expanded Lower Extremity Exam Neurovascular/Tendon exam: Present: normal capillary refill. Absent: pulse deficit, motor deficit, sensory deficit, tendon deficit - Back Exam Back exam: Present: normal inspection, full ROM. Absent: tenderness, CVA tenderness (R), CVA tenderness (L) - Neurological Exam Neurological exam: Present: alert, oriented X3 - Skin Skin exam: Present: warm, dry, intact, normal color Course Course Narrative: 77-year-old male presents to the ED with shortness of breath. Patient does have history of pulmonary [place] because her to worry about pneumonia we will get a CT with contrast of the chest. We will forego having a CTA of the chest. Patient refused this plan. We will get normal labs including CBC, BMP, lactate, blood cultures. We will see urinalysis. We will do chest x-ray and EKG. Patient okay with this plan. - Consultations Consultation #1: Spoke with the hospitalist who agreed to admit the patient has requested that we consult with interventional radiology for them to do the thoracentesis. I also talked with him about the results of the CT showing possible atelectasis versus pneumonia due to patient not having a white count, tachycardia, fever, lactic acidosis we felt that not treating with antibiotics at this time would be beneficial. We will not give antibiotics at this time. Time: 14:26 Consultation #2: spoke with interventional radiology who said they will come down to the emergency department and do a thoracentesis on the patient. Patient's INR and be on Coumadin was relayed to them. Time: 14:00 Vital Signs Temperature 97.8 F 08/06/17 12:09 Pulse Rate 83 08/06/17 12:09 Respiratory Rate 20 08/06/17 12:09 Blood Pressure 130/82 08/06/17 12:09 O2 Sat by Pulse Oximetry 97 08/06/17 12:09 Temperature 97.8 F 08/06/17 12:09 Pulse Rate 97 08/06/17 13:53 Respiratory Rate 26 08/06/17 13:53 Blood Pressure 151/83 08/06/17 13:53 O2 Sat by Pulse Oximetry 97 08/06/17 13:53 Oxygen Delivery Oxygen Delivery Nasal Cannula Shortness of Breath/Dyspnea - [facility] Narrative Medical decision making narrative: 77-year-old female presents the ED with difficulty in breathing. She somewhat her claims configuration analyst for possible pneumonia in pleural effusions. Patient recently had a procedure where she had 1 L drained out her right side and 1.5 L drained off her left side. This was done approximately 2 weeks ago. At that time the fluid was clear she had no signs of pneumonia. Right now she is complaining any fevers. Chest x-ray did show again pleural effusions that looked to be as bad as the previous time she was here. We contacted IR and they said that they would do a thoracentesis in the emergency department. I spoke with the hospice agreed to admit the patient but they asked that that we do the thoracentesis before we send out. Once the fluid was drawn out of the right side they noticed that it was not clear or strawlike color so we ordered pleural fluid studies including LDH, albumin, protein, Gram stain, culture for these to be followed later. This most likely is a exudative pleural effusion. Because of this we also started her on antibiotics we are considering her hospital acquired pneumonia as she was recently in the hospital for the pleural effusions. We started her on Levaquin, Zosyn, vancomycin. Patient denied a lactic acidosis, leukocytosis or fever or tachycardia but due to the fluid we felt this was the best course of action. We did offer patient BiPAP for the breathing she denied this as she said that it does not help her. Patient is always on oxygen she is always on 3 L. Patient otherwise is having no problems she is stable at this time. Patient is admitted to the hospitalist service in stable condition. - Medical Records Medical records reviewed: Yes I reviewed the patient's medical records. - Lab Data Lab results reviewed: Yes I reviewed the patient's lab results. Result diagrams: 08/06/17 12:35 08/06/17 12:35 Lab Results 08/06/17 08/06/17 08/06/17 Range/Units 12:35 12:35 12:35 WBC 5.5 (4.3-11.1) K/mcL RBC 3.80 L (3.82-4.97) M/mcL Hgb 9.7 L (11.5-15.4) g/dL Hct 32.5 L (35.3-44.9) % MCV 85.5 (83.0-100.0) fL MCH 25.5 L (28.0-33.3) pg MCHC 29.8 L (31.6-35.5) g/dL RDW 19.7 H (11.5-14.5) % Plt Count 199 (140-400) K/mcL MPV 10.0 (9.4-12.4) fL Immature Gran % 0.4 (0-4) % Seg Neutrophils % 78.1 % Lymphocytes % 10.2 % Monocytes % 8.2 % Eosinophils % 2.7 % Basophils % 0.4 % Neutrophils # 4.3 (1.6-8.9) K/mcL Lymphocytes # 0.6 (0.6-4.6) K/mcL Monocytes # 0.5 (0.0-1.3) K/mcL Eosinophils # 0.2 (0.0-0.6) K/mcL Basophils # 0.0 (0.0-0.2) K/mcL PT 18.6 H (9.4-12.1) Seconds INR 1.7 APTT 33.8 (26.0-36.0) Seconds Sodium 140 (136-145) mEq/L Potassium 4.0 (3.5-4.5) mEq/L Chloride 92 L (98-109) mEq/L Carbon Dioxide 40 H* (19-29) mEq/L BUN 21 H (7-20) mg/dL Creatinine 1.02 (0.57-1.11) mg/dL Est GFR ( Amer) > 60 (> 60) Est GFR (Non-Af Amer) 52 L (> 60) BUN/Creatinine Ratio 21 (6-26) Glucose 104 H (70-99) mg/dL Calculated Osmolality 293 (280-300) Lactic Acid (0.5-2.2) mmol/L Calcium 9.6 (8.6-10.8) mg/dL Lactate Dehydrogenase 307 (159-327) Units/L Troponin I (0-0.03) ng/mL B-Natriuretic Peptide (0-100) pg/mL 08/06/17 08/06/17 08/06/17 Range/Units 12:35 12:35 12:35 WBC (4.3-11.1) K/mcL RBC (3.82-4.97) M/mcL Hgb (11.5-15.4) g/dL Hct (35.3-44.9) % MCV (83.0-100.0) fL MCH (28.0-33.3) pg MCHC (31.6-35.5) g/dL RDW (11.5-14.5) % Plt Count (140-400) K/mcL MPV (9.4-12.4) fL Immature Gran % (0-4) % Seg Neutrophils % % Lymphocytes % % Monocytes % % Eosinophils % % Basophils % % Neutrophils # (1.6-8.9) K/mcL Lymphocytes # (0.6-4.6) K/mcL Monocytes # (0.0-1.3) K/mcL Eosinophils # (0.0-0.6) K/mcL Basophils # (0.0-0.2) K/mcL PT (9.4-12.1) Seconds INR APTT (26.0-36.0) Seconds Sodium (136-145) mEq/L Potassium (3.5-4.5) mEq/L Chloride (98-109) mEq/L Carbon Dioxide (19-29) mEq/L BUN (7-20) mg/dL Creatinine (0.57-1.11) mg/dL Est GFR ( Amer) (> 60) Est GFR (Non-Af Amer) (> 60) BUN/Creatinine Ratio (6-26) Glucose (70-99) mg/dL Calculated Osmolality (280-300) Lactic Acid 1.1 (0.5-2.2) mmol/L Calcium (8.6-10.8) mg/dL Lactate Dehydrogenase (159-327) Units/L Troponin I 0.01 (0-0.03) ng/mL B-Natriuretic Peptide 89 (0-100) pg/mL - Radiology Data Radiology results reviewed: Yes I reviewed the patient's radiology results. - EKG Data EKG attestation: Yes I reviewed and interpreted this EKG. EKG results narrative: EKG done at 12 2070 myself and attending shows normal sinus rhythm rate of 93, TX 167, QRS 90, QTC 369 with a normal axis. No acute ST changes, no acute T- wave changes, no signs of any heart blocks, hypertrophy, heart strain, WPW/ Brugada syndrome. This EKG is unchanged when compared with old EKG done . Critical Care Time Critical Care Time: Yes Total Critical Care Time: 45 Attestation: Critical care performed: Time is exclusive of separately billable procedures. Time includes: direct patient care, patient reassessment, coordination of patient care, interpretation of data (laboratory data, radiology data, and respiratory data), review of patient's medical records, medical consultation and documentation of patient care. Procedures included in critical care time: Procedures excluded from critical care time: Attestation Statement - Attestation Attestation: I, Jhony Long DO, examined this patient [id number] and my medical decision-making was reviewed with Dr. Horacio Lester, Resident Physician. I agree with the documented findings, disposition and treatment plan as described except to the extent set forth below. Please see my progress notes for details. 77-year-old female presents to emergency room complaining of shortness of breath and hypoxia. She was seen her claims configuration analyst office and evaluated recommend coming emergency room for treatment course. Patient recently had paracentesis completed removing over 1 L of fluid from both lungs. Patient has had persistent symptoms. Also concerned about a bilateral pneumonia. Vital signs reviewed in presentation she is responsive to oxygen while here. At chest x-ray does show increasing pleural effusion comparison to the post pleuracentesis imaging. CT of the chest was ordered with a concern for possible pneumonia. Chest x-ray did not show any acute consolidations. CT did have possible groundglass opacities. Consultation placed with the hospitalist for admission and he did not recommend antibiotics at this time. Patient is not frankly septic or show any acute signs of infectious etiology. Bedside thoracentesis to be completed in the emergency room the patient will be admitted. Labs are reviewed down here. Right-sided pleuracentesis completed removing greater than 1 L. Left will be completed in the inpatient setting. No other concerns or issues noted. Fluid will be sent for pathology. See detailed documentation of physical exam, medical intervention, medical decision- making disposition resident physician's note [id number] Patient has distinctly looking fluid removed from the right lung. Antibiotic regimen will be started with concern for possible infection at this time. Will be sent for pathology. Patient admission to be completed this time. Critical care applied to the patient at this time.
[2017-08-06 13:35] LABS: BUN/Creatinine Ratio 21 (6-26); Blood Urea Nitrogen 21 mg/dL (7-20); Calcium 9.6 mg/dL (8.6-10.8); Chloride 92 mEq/L (98-109); Glucose 104 mg/dL (70-99); Osmolality,Calculated 293 (280-300); Sodium 140 mEq/L (136-145); eGFR For African Americans > 60 (> 60); eGFR For Non-African Americans 52 (> 60)
[2017-08-06 13:36] LABS: Carbon Dioxide 40 mEq/L (19-29)
[2017-08-06] MEDS ORDERED: Vancomycin 1,250 MG in D5% in Water 250 ML IVPB ONE (14:46)
[2017-08-06] MEDS ORDERED: Levofloxacin 750 MG/150 ML 750 MG/150 ML BAG IVPB ONE (14:46)
[2017-08-06] MEDS ORDERED: Piperacillin/Tazobactam 3.375 GM/200 ML BAG IVPB ONE (14:46)
[2017-08-06 15:00] LABS: Lactate Dehydrogenase 307 Units/L (159-327)
[2017-08-06 15:12] LABS: Bilirubin,Urine Negative (Negative); Blood,Urine Negative (Negative); Clarity,Urine Cloudy (Clear); Color,Urine Yellow (Yellow); Glucose,Urine (UA) Normal (Normal); Ketones,Urine Trace mg/dL (Negative); Leukocyte Esterase,Urine Small (Negative); Nitrite,Urine Negative (Negative); Protein,Urine 30 mg/dL (Neg-Trace); Specific Gravity,Urine 1.024 (1.010-1.025); Urobilinogen,Urine Normal (Normal)
[2017-08-06 15:16] LABS: Bacteria,Urine None Seen per hpf (None-Few); Hyaline Casts,Urine None Seen per lpf (None-Few); Squamous Epithelial Cell,Urine Many per lpf (None-Few)
[2017-08-06 16:12] LABS: Glucose,Pleural Fluid 108 mg/dL (No Ref Range); LDH,Pleural Fluid 152 Units/L (No Ref Range); Total Protein,Pleural Fluid 3.8 g/dL (No Ref Range)
[2017-08-06 16:26] LABS: Magnesium 1.7 mg/dL (1.6-2.6); Phosphorous 3.2 mg/dL (2.3-4.7)
[2017-08-06 17:36] LABS: Appearance of Pleural Fl Cloudy (Clear)
--- NOTE | 2017-08-06 20:30 | Internal Med History&Physical ---
Date of Encounter: 08/06/17 Time of Encounter: 20:27 Assessment and Plan (1) CHF (congestive heart failure) Current visit: Yes Status: Acute I will start the patient only lasix 60 mg IV twice-daily. Patient has LV diastolic dysfunction and moderate pulmonary hypertension which May Related to Underlying Sleep Apnea or Obesity Hypoventilation Syndrome. Strict intake and output and daily weight Qualifiers: Qualified Code(s): I50.9 - Heart failure, unspecified (2) HCAP (healthcare-associated pneumonia) Current visit: Yes Status: Acute Start patient on vancomycin and Zosyn. Sputum culture. await pleural fluid culture and gram stain (3) Pleural effusion Current visit: Yes Status: Acute Etiology unclear. pleural floor analysis performed. will check protein and LDH to check transudate versus exudates. It does not appear to be empyema since pH is 8 and glucose is 108. Internal Medicine - H&P: HPI Chief complaint: sob History of present illness: Ms. Quintero is a 77 year old female with multiple medical problems presented emergency room they with a main complaint of shortness of breath. Since Saturday 4 days ago patient started experiencing progressive shortness of breath to the point where she is unable to be the rest associated with orthopnea and bilateral lower extremity swelling. She has also been having increased, sputum production occasionally yellowish in colour. She has been having chills. Patient denies any chest pain. Patient mentioned she had never had any coronary Angiogram Past Med Surg Social Fam HX - Past Medical History Medical history: asthma, cancer, DVT, hypertension, pulmonary embolus Psychiatric history: no psych history - Past Surgical History Surgical History: appendectomy, cholecystectomy, hysterectomy, vascular surgery - Social History Smoking Status: Never smoker Smokeless Tobacco Status: No Alcohol use: none Drug use: none - Family History Father Family Member Ethnicity: Non- Living Status: Hx Family Cardiac Disorders: Yes (NC, CAD) Mother Family Member Ethnicity: Non- Living Status: Hx Family Cardiac Disorders: Yes (CHF, CAD, TIAs) Hx Family Endocrine Disorder: Yes (DM) Brother Family Member Ethnicity: Non- Living Status: Hx Family Cardiac Disorders: Yes (NC, CAD, HTN) Sister Family Member Ethnicity: Non- Living Status: Hx Family Cardiac Disorders: Yes (HF, CAD, HTN) Internal Medicine - H&P: Meds Albuterol Neb [Proventil Neb] 2.5 mg IH Q4-6H PRN 06/10/17 [History] Albuterol Sulfate [Proair Hfa] 2 puff IH Q6H PRN 06/10/17 [History] Carvedilol [Coreg] 6.25 mg PO BID 06/10/17 [History] Aspirin Enteric Coated [Aspirin EC] 81 mg PO DAILY #30 tablet. 06/12/17 [Rx] Furosemide [Lasix] 40 mg PO BID 06/21/17 [History] Potassium Chloride [Klor-Con 10] 10 meq PO DAILY 06/21/17 [History] Warfarin [Coumadin] 2.5 mg PO SUMOWETHSA 06/21/17 [History] Warfarin [Coumadin] 5 mg PO TUFR 06/21/17 [History] Ferrous Sulfate 325 mg PO BIDWM #60 tablet 07/21/17 [Rx] predniSONE [PredniSONE] 10 mg PO DAILY #10 tablet 07/21/17 [Rx] 3 Allergy/AdvReac Type Severity Reaction Status Date / Time No Known Allergies Allergy Verified 07/16/17 11:56 All Systems PM: A 10-system review of systems was performed and is negative for pertinent findings except as documented above in the HPI. Review of systems: 10 point review of systems is negative except for HPI - Constitutional Vitals: Temp Pulse Resp BP Pulse Ox 97.8 F 98 24 146/82 99 08/06/17 12:09 08/06/17 17:12 08/06/17 17:25 08/06/17 17:25 08/06/17 17:12 Exam: Gen.: patient is alert oriented times 3 cardiac: normal S1 S2 no additional sounds or murmurs chest: diminished air entry in bases. crackles in both lungs posteriorly abdomen soft nontender nondistended normal bowel sounds lower extremity 2+ swelling. Neuro: no new focal deficits Internal Med - H&P Results - Labs CBC & Chem 7: 08/06/17 12:35 08/06/17 12:35 Labs: Urine 08/06/17 Range/Units 15:01 Urine Color Yellow (Yellow) Urine Clarity Cloudy A (Clear) Urine pH 6.0 (5.0-8.0) pH Units Ur Specific [place] 1.024 (1.010-1.025) Urine Protein 30 H (Neg-Trace) mg/dL Urine Glucose (UA) Normal (Normal) mg/dL - Impressions ITS Impressions Chest X-Ray 08/06/17 14:50 IMPRESSION: Interval decrease in right pleural effusion with no pneumothorax following thoracentesis. D/ / Reg Márquez MD / Reg Márquez MD Interpreting Provider: Rge Márquez MD
[2017-08-06] MEDS ORDERED: Vancomycin 1,250 MG in D5% in Water 250 ML IVPB SCH (21:00)
[2017-08-06] MEDS: Piperacillin/Tazobactam 3.375 GM/200 ML BAG IVPB SCH (22:54)
[2017-08-06] MEDS: Furosemide 40 MG/4 ML VIAL IVP SCH (23:00)
[2017-08-06] MEDS ORDERED: *HR* Morphine 2 MG/ML SYRINGE ONE (23:55)
[2017-08-06] MEDS: *HR* Morphine 2 MG/ML SYRINGE IVP PRN (23:58)
[2017-08-07] MEDS ORDERED: Piperacillin/Tazobactam 3.375 GM in D5% in Water (Mini-Bag+) 100 ML IVPB SCH
[2017-08-07 03:16] LABS: Lactate Dehydrogenase 320 Units/L (159-327)
[2017-08-07 03:17] LABS: Total Protein 6.7 g/dL (6.0-8.3)
[2017-08-07 03:34] LABS: Basophils % 0.1 %; Eosinophils # 0.1 K/mcL (0.0-0.6); Eosinophils % 1.3 %; Hemoglobin 9.3 g/dL (11.5-15.4); Immature Granulocytes % 0.3 % (0-4); Lymphocytes # 0.2 K/mcL (0.6-4.6); Lymphocytes % 2.4 %; Mean Corpuscular Hemoglobin 25.3 pg (28.0-33.3); Mean Corpuscular Volume 84.5 fL (83.0-100.0); Mean Platelet Volume 10.2 fL (9.4-12.4); Monocytes # 0.4 K/mcL (0.0-1.3); Monocytes % 4.3 %; Neutrophils # 7.9 K/mcL (1.6-8.9); Platelet Count 196 K/mcL (140-400); Red Blood Count 3.67 M/mcL (3.82-4.97); Red Cell Distribution Width 19.4 % (11.5-14.5); Segmented Neutrophils % 91.6 %
[2017-08-07 03:47] LABS: Calcium 8.7 mg/dL (8.6-10.8); Magnesium 1.6 mg/dL (1.6-2.6); Potassium 4.1 mEq/L (3.5-4.5)
[2017-08-07] MEDS: Piperacillin/Tazobactam 3.375 GM/200 ML BAG IVPB SCH ×3 (06:32→21:39)
[2017-08-07] MEDS ORDERED: Aminoglycoside Consult 1 EACH MC ONE (07:51)
[2017-08-07] MEDS ORDERED: predniSONE 20 MG TABLET PO SCH (09:00)
[2017-08-07] MEDS: Furosemide 40 MG/4 ML VIAL IVP SCH ×2 (10:21→17:20)
[2017-08-07] MEDS: Aspirin Enteric Coated 81 MG Tablet PO SCH (10:21)
[2017-08-07 10:53] LABS: INR 2.1; Prothrombin Time 22.8 Seconds (9.4-12.1)
--- NOTE | 2017-08-07 10:54 | IR Procedure Note ---
Date of procedure: 08/07/17 Consent Obtained: Written consent Timeout: Correct patient and procedure verified, Correct site verified, Time out performed, Skin prep completed Indications: pleural effusion left Procedure Performed: left thoracentesis Site/Technique: left Results/Findings: cloudy fluid Estimated blood loss (cc): 0 Complications: None; Tolerated procedure well Post Procedure Treatment Plan: CXR
[2017-08-07] MEDS: metOLazone 5 MG TABLET PO SCH (17:07)
--- NOTE | 2017-08-07 17:15 | Internal Med Progress Note ---
Date of Encounter: 08/07/17 Time of Encounter: 09:20 - Assessment and plan (1) Acute and chronic respiratory failure Current Visit: Yes Status: Acute Assessment and plan: Patient with acute on chronic respiratory failure due to acute congestive heart failure and bilateral pleural effusions. Continue IV diuresis. Continue O2 supplementation. High-risk for complications Qualifiers: Respiratory failure complication: hypoxia Qualified Code(s): J96.21 - Acute and chronic respiratory failure with hypoxia (2) Acute exacerbation of CHF (congestive heart failure) Current Visit: Yes Status: Acute Assessment and plan: Continue diuretics. Continue to monitor urine output. Follow renal function closely. Qualifiers: Congestive heart failure type: diastolic Qualified Code(s): I50.33 - Acute on chronic diastolic (congestive) heart failure (3) Anemia Current Visit: Yes Status: Chronic Assessment and plan: Likely due to chronic kidney disease. Hemoglobin levels are stable Qualifiers: Anemia type: due to chronic kidney disease Chronic kidney disease stage: stage 3 (moderate) Qualified Code(s): N18.3 - Chronic kidney disease, stage 3 (moderate); D63.1 - Anemia in chronic kidney disease; D63.1 - Anemia in chronic kidney disease (4) Bilateral pleural effusion Current Visit: Yes Status: Acute Assessment and plan: Patient with bilateral pleural effusion. Status post right-sided paracentesis. Left-sided thoracentesis planned for today. We will repeat chest x-ray post thoracentesis . (5) Chronic kidney disease, stage III (moderate) Current Visit: Yes Status: Chronic Assessment and plan: Creatinine 1.14 today. Baseline between 1.2 and 1.6 (6) HTN (hypertension) Current Visit: Yes Status: Chronic Assessment and plan: Blood pressure is well controlled Qualifiers: Hypertension type: essential hypertension Qualified Code(s): I10 - Essential (primary) hypertension (7) Hx of deep venous thrombosis Current Visit: Yes Status: Acute Assessment and plan: Continue anticoagulation with Coumadin (8) Hx of pulmonary embolus Current Visit: No Status: Chronic (9) HCAP (healthcare-associated pneumonia) Current Visit: Yes Status: Suspected Assessment and plan: Patient suspected to have his care associated pneumonia. However does not exhibit any signs of pneumonia clinically. There is no leukocytosis. Chest x- ray does not show any clear infiltrate. If cultures remain negative, we will stop antibiotics. - Subjective Interval history: Patient is lying in bed. Continues to have shortness of breath. Also reports pain in her left lateral chest. She is able to lie flat. No fever or chills reported overnight. - Constitutional Vitals: Temp Pulse Resp BP Pulse Ox 98.0 F 82 14 106/42 98 08/07/17 15:21 08/07/17 15:21 08/07/17 15:21 08/07/17 15:21 08/07/17 15:21 General appearance: Present: cooperative, A&O X 3, answers questions appropriately - Eye Eye exam: Present: conjuntiva pink, sclera anicteric - Neck Neck exam general surgery: Present: supple, trachea midline. Absent: lymphadenopathy - Respiratory Respiratory exam: Present: decreased breath sounds (At both bases with basal crackles). Absent: accessory muscle use, rales, rhonchi, wheezes - GI/Abdominal GI/Abdominal exam: Present: normal bowel sounds, soft, no peritoneal signs. Absent: distended, tenderness - Extremities Exam Extremities exam: Present: warm, radial pulses palpable and symmetrical. Absent : calf tenderness, cyanotic, pedal edema - Neurological Exam Neurological exam: Present: alert, oriented X3, no focal deficits. Absent: facial droop, speech deficit - Skin Skin exam: Present: dry, intact Internal Medicine: Result - Labs CBC & Chem 7: 08/07/17 03:13 08/07/17 03:13 - ABG Interpretation ABG results: PT/INR, D-dimer PT 22.8 Seconds (9.4-12.1) H 08/07/17 10:33 - Impressions Impressions Chest X-Ray 08/07/17 13:46 IMPRESSION: Slightly improved left lung aeration after left thoracentesis. No pneumothorax. Bibasilar opacities and right pleural effusion are otherwise not substantially changed D/ / Blair Styles / Blair Styles Interpreting Provider: Blair Styles Consult Discharge Plan - Plan Referrals: Robles Koch MD [Primary Care Provider] -
[2017-08-07] MEDS ORDERED: Vancomycin 1,250 MG in D5% in Water 250 ML IVPB SCH (18:00)
[2017-08-07] MEDS ORDERED: *HR* Warfarin 3 MG TABLET PO ONE (18:00)
[2017-08-07] MEDS ORDERED: Warfarin perPT PO PRN (18:00)
[2017-08-07] MEDS: *HR* Morphine 2 MG/ML SYRINGE IVP PRN (21:54)
[2017-08-08 05:39] LABS: INR 2.7; Prothrombin Time 29.4 Seconds (9.4-12.1)
[2017-08-08 05:48] LABS: Calcium 8.8 mg/dL (8.6-10.8); Potassium 3.4 mEq/L (3.5-4.5)
[2017-08-08] MEDS: metOLazone 5 MG TABLET PO SCH (06:33)
[2017-08-08] MEDS: Piperacillin/Tazobactam 3.375 GM/200 ML BAG IVPB SCH (06:33)
[2017-08-08] MEDS: *HR* Morphine 2 MG/ML SYRINGE IVP PRN ×2 (06:39→19:45)
[2017-08-08] MEDS: Aspirin Enteric Coated 81 MG Tablet PO SCH (09:32)
[2017-08-08] MEDS: Furosemide 40 MG/4 ML VIAL IVP SCH (09:32)
--- NOTE | 2017-08-08 14:18 | Internal Med Progress Note ---
Date of Encounter: 08/08/17 Time of Encounter: 11:00 - Assessment and plan (1) Acute and chronic respiratory failure Current Visit: Yes Status: Acute Assessment and plan: On 3 L/m O2 supplementation. Doing better today. Continue treating underlying conditions. Qualifiers: Respiratory failure complication: hypoxia Qualified Code(s): J96.21 - Acute and chronic respiratory failure with hypoxia (2) Acute exacerbation of CHF (congestive heart failure) Current Visit: Yes Status: Acute Assessment and plan: Responded well to IV Lasix. Patient does have metabolic alkalosis which appears to be chronic. We will change Lasix dosage to oral. Continue to monitor renal function closely. Creatinine remains at baseline. Monitor input and output. Qualifiers: Congestive heart failure type: diastolic Qualified Code(s): I50.33 - Acute on chronic diastolic (congestive) heart failure (3) Anemia Current Visit: Yes Status: Chronic Assessment and plan: Stable Qualifiers: Anemia type: due to chronic kidney disease Chronic kidney disease stage: stage 3 (moderate) Qualified Code(s): N18.3 - Chronic kidney disease, stage 3 (moderate); D63.1 - Anemia in chronic kidney disease; D63.1 - Anemia in chronic kidney disease (4) Bilateral pleural effusion Current Visit: Yes Status: Acute Assessment and plan: Status post bilateral thoracentesis. Fluid analysis suggests transudative effusion. (5) Chronic kidney disease, stage III (moderate) Current Visit: Yes Status: Chronic Assessment and plan: Renal function at baseline. Patient has outpatient follow-up arranged with nephrology tomorrow. (6) HTN (hypertension) Current Visit: Yes Status: Chronic Assessment and plan: Well-controlled Qualifiers: Hypertension type: essential hypertension Qualified Code(s): I10 - Essential (primary) hypertension (7) Hx of deep venous thrombosis Current Visit: Yes Status: Acute Assessment and plan: Continue Coumadin. INR is therapeutic (8) Hx of pulmonary embolus Current Visit: No Status: Chronic (9) HCAP (healthcare-associated pneumonia) Current Visit: Yes Status: Ruled-out Assessment and plan: Chest x-ray done yesterday does not show any infiltrate. Patient does not have any fever or other signs of pneumonia. We will stop antibiotics at this time. - Subjective Interval history: Patient is sitting up in chair. Feels better but complains of pain in left upper back at site of thoracentesis yesterday. She does have good urine output. Denies any chest pain. Shortness of breath is improving. - Constitutional Vitals: Temp Pulse Resp BP Pulse Ox 97.4 F L 67 20 103/56 99 08/08/17 11:06 08/08/17 11:06 08/08/17 11:06 08/08/17 11:06 08/08/17 11:06 General appearance: Present: cooperative, A&O X 3, answers questions appropriately - Neck Neck exam general surgery: Present: supple, trachea midline. Absent: lymphadenopathy - Respiratory Respiratory exam: Present: decreased breath sounds (At both bases with crackles) . Absent: accessory muscle use, rales, rhonchi, wheezes - Cardiovascular Cardiovascular exam: Present: RRR, +S1, +S2. Absent: diastolic murmur, gallop, rubs, systolic murmur - GI/Abdominal GI/Abdominal exam: Present: normal bowel sounds, soft, no peritoneal signs. Absent: distended, tenderness - Extremities Exam Extremities exam: Present: pedal edema (Bilateral), warm, radial pulses palpable and symmetrical. Absent: calf tenderness, cyanotic - Neurological Exam Neurological exam: Present: alert, oriented X3, no focal deficits. Absent: facial droop, speech deficit Internal Medicine: Result - Labs CBC & Chem 7: 08/07/17 03:13 08/08/17 05:11 Labs: BMP 08/08/17 05:11 Sodium 139 Potassium 3.4 L Chloride 91 L Carbon Dioxide 41 H* BUN 28 H Creatinine 1.36 H Glucose 101 H Calcium 8.8 - ABG Interpretation ABG results: PT/INR, D-dimer PT 29.4 Seconds (9.4-12.1) H 08/08/17 05:11 - Impressions Impressions Chest X-Ray 08/07/17 13:46 IMPRESSION: Slightly improved left lung aeration after left thoracentesis. No pneumothorax. Bibasilar opacities and right pleural effusion are otherwise not substantially changed D/ / Blair Styles / Blair Styles Interpreting Provider: Blair Styles Consult Discharge Plan - Plan Referrals: Robles Koch MD [Primary Care Provider] -
[2017-08-08 15:23] LABS: CK Total (Ck Isoenzymes) 21 U/L (20-180)
[2017-08-08] MEDS ORDERED: *HR* Warfarin 2 MG TABLET PO ONE (18:00)
[2017-08-08] MEDS ORDERED: *HR* Morphine Immed Rel 30 MG TABLET PO PRN (23:05)
[2017-08-09] MEDS ORDERED: Ondansetron 4 MG/2 ML VIAL ONE (02:27)
[2017-08-09] MEDS: Ondansetron 4 MG/2 ML VIAL IVP PRN ×2 (02:30→02:35)
[2017-08-09] MEDS ORDERED: Naloxone 0.4 MG/ML INJ IVP ONE ×4 (02:50→10:05)
[2017-08-09] MEDS ORDERED: Naloxone 0.4 MG/ML INJ ONE (02:55)
[2017-08-09 04:12] LABS: Basophils % 0.3 %; Eosinophils # 0.4 K/mcL (0.0-0.6); Eosinophils % 7.2 %; Hematocrit 28.6 % (35.3-44.9); Hemoglobin 8.6 g/dL (11.5-15.4); Immature Granulocytes % 0.7 % (0-4); Lymphocytes # 0.5 K/mcL (0.6-4.6); Lymphocytes % 8.4 %; Mean Corpuscular HGB Conc 30.1 g/dL (31.6-35.5); Mean Corpuscular Hemoglobin 25.5 pg (28.0-33.3); Mean Corpuscular Volume 84.9 fL (83.0-100.0); Mean Platelet Volume 9.7 fL (9.4-12.4); Monocytes # 0.4 K/mcL (0.0-1.3); Monocytes % 6.4 %; Neutrophils # 4.7 K/mcL (1.6-8.9); Platelet Count 226 K/mcL (140-400); Red Blood Count 3.37 M/mcL (3.82-4.97); Red Cell Distribution Width 19.2 % (11.5-14.5)
[2017-08-09 04:15] LABS: INR 2.4
[2017-08-09 04:32] LABS: Calcium 8.3 mg/dL (8.6-10.8); Potassium 3.1 mEq/L (3.5-4.5)
[2017-08-09] MEDS ORDERED: Naloxone 0.4 MG/ML INJ IVP PRN (08:13)
[2017-08-09] MEDS: Aspirin Enteric Coated 81 MG Tablet PO SCH (08:40)
[2017-08-09] MEDS ORDERED: *HR* Etomidate 40 MG/20 ML VIAL IVP ONE (08:43)
[2017-08-09] MEDS ORDERED: *HR* Midazolam HCl 5 MG/5 ML VIAL IVP ONE (08:43)
[2017-08-09] MEDS ORDERED: *HR* Midazolam HCl 2 MG/2 ML VIAL IV ONE (08:43)
--- NOTE | 2017-08-09 09:20 | Discharge Summary ---
Date of Encounter: 08/09/17 Time of Encounter: 09:20 - Discharge Diagnosis (1) Acute and chronic respiratory failure Priority: Primary Status: Acute Qualifiers: Respiratory failure complication: hypoxia Qualified Code(s): J96.21 - Acute and chronic respiratory failure with hypoxia (2) Acute exacerbation of CHF (congestive heart failure) Priority: Secondary Status: Acute Comments: Due to Hypertension Qualifiers: Congestive heart failure type: diastolic Qualified Code(s): I50.33 - Acute on chronic diastolic (congestive) heart failure (3) Anemia Priority: Secondary Status: Chronic Qualifiers: Anemia type: due to chronic kidney disease Chronic kidney disease stage: stage 3 (moderate) Qualified Code(s): N18.3 - Chronic kidney disease, stage 3 (moderate); D63.1 - Anemia in chronic kidney disease; D63.1 - Anemia in chronic kidney disease (4) Bilateral pleural effusion Priority: Secondary Status: Acute (5) Chronic kidney disease, stage III (moderate) Priority: Secondary Status: Chronic (6) HTN (hypertension) Priority: Secondary Status: Chronic Qualifiers: Hypertension type: essential hypertension Qualified Code(s): I10 - Essential (primary) hypertension (7) Hx of deep venous thrombosis Priority: Secondary Status: Acute (8) Hx of pulmonary embolus Priority: Secondary Status: Chronic (9) HCAP (healthcare-associated pneumonia) Priority: Secondary Status: Ruled-out - Discharge Medications Prescriptions: aMILoride [Midamor] 2.5 mg PO DAILY #30 tablet Home Medications: Albuterol Neb [Proventil Neb] 2.5 mg IH Q4-6H PRN 06/10/17 [History] Albuterol Sulfate [Proair Hfa] 2 puff IH Q6H PRN 06/10/17 [History] Carvedilol [Coreg] 6.25 mg PO BID 06/10/17 [History] Aspirin Enteric Coated [Aspirin EC] 81 mg PO DAILY #30 tablet.dr 06/12/17 [Rx] Furosemide [Lasix] 40 mg PO BID 06/21/17 [History] Potassium Chloride [Klor-Con 10] 10 meq PO DAILY 06/21/17 [History] Warfarin [Coumadin] 2.5 mg PO SUMOWETHSA 06/21/17 [History] Warfarin [Coumadin] 5 mg PO TUFR 06/21/17 [History] Ferrous Sulfate 325 mg PO BIDWM #60 tablet 11/12/17 [Rx] aMILoride [Midamor] 2.5 mg PO DAILY #30 tablet 08/09/17 [Rx] Allergies/Adverse Reactions: 3 Allergy/AdvReac Type Severity Reaction Status Date / Time No Known Allergies Allergy Verified 07/16/17 11:56 Procedures/tests Complete & Pending: Procedures Performed prior 72 hours Category Date Time Status IR thoracentesis ultrasound [IR] Routine IR 08/07/17 Completed Date of admission: 08/07/17 08:03 Primary care physician: Robles Koch MD Consults: 08/06/17 13:49 Consult to Interventional Radiology [CONS] Routine Consulting Provider: Radiology Interventional Cols Reason for Consult: thoracentesis Time Notified: 13:50 Call Completed: Yes 08/06/17 20:25 Consult to Occupational Therapy [CONS] Routine Comment: Evaluate, develop and implement POC Reason for Consult: wekaness Consult to Physical Therapy [CONS] Routine Comment: Evaluate, develop and implement POC Reason for Consult: weakness Discharging clinician: Marysol Huff Anticipated date of discharge: 08/09/17 - Patient Status Disposition: Home Health Service Condition: Good Functional capacity at discharge: uses cane/walker Overall status at discharge: patient is progressing back to baseline - Ambulatory Orders Ambulatory Orders: Basic Metabolic Panel [CHEM] Time Frame: 2 Days, Facility: [facility], Location: Lab - Discharge Instructions Instructions: Acute Respiratory Distress Syndrome (DC), Heart Failure (DC), Anemia (GEN) Follow Up With: Robles Koch MD [Primary Care Provider] - (in 1-2 weeks) Additional Instructions: 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 Quintero is a 77 year old female - Time Spent with Patient Total time spent providing and/or coordinating discharge services: Greater than 30 minutes (35 min) - Constitutional Vitals: Temp Pulse Resp BP Pulse Ox 98.7 F 91 18 135/78 92 08/09/17 06:00 08/09/17 06:00 08/09/17 06:00 08/09/17 06:00 08/09/17 08:27 General appearance: Present: cooperative, A&O X 3, answers questions appropriately - Neck Neck exam general surgery: Present: supple, trachea midline. Absent: lymphadenopathy - Respiratory Respiratory exam: Present: CTAB. Absent: accessory muscle use, rales, rhonchi, wheezes - Cardiovascular Cardiovascular exam: Present: RRR, +S1, +S2. Absent: diastolic murmur, gallop, rubs, systolic murmur - GI/Abdominal GI/Abdominal exam: Present: normal bowel sounds, soft, no peritoneal signs. Absent: distended, tenderness - Extremities Exam Extremities exam: Present: pedal edema (improving), warm, radial pulses palpable and symmetrical. Absent: calf tenderness, cyanotic - Neurological Exam Neurological exam: Present: alert, oriented X3, no focal deficits. Absent: facial droop, speech deficit
--- NOTE | 2017-08-09 09:51 | Physician Discharge Referral ---
Home Health/Hosp Referral Info Transfer to: Home Health Provider in Charge Post Discharge: PCP - Diagnosis (1) Acute and chronic respiratory failure Priority: Primary Status: Acute (2) Acute exacerbation of CHF (congestive heart failure) Priority: Secondary Status: Acute (3) Anemia Priority: Secondary Status: Chronic (4) Bilateral pleural effusion Priority: Secondary Status: Acute (5) Chronic kidney disease, stage III (moderate) Priority: Secondary Status: Chronic (6) HTN (hypertension) Priority: Secondary Status: Chronic (7) Hx of deep venous thrombosis Priority: Secondary Status: Acute (8) Hx of pulmonary embolus Priority: Secondary Status: Chronic (9) HCAP (healthcare-associated pneumonia) Priority: Secondary Status: Ruled-out - Respiratory Orders Oxygen / L per min (3) Smoking Cessation: Smoking cessation has been advised. For more information, call the [employer] Quit Line at 7-051-VGKJ-NOW. - Diet/Nutrition Diet/Nutrition Orders: Renal, Cardiac Diet/Nutrition: List: Fluid restriction to 1.5 L per 24 hours - Activity Activity Orders: Walker - Services Needed Following services are medically necessary services: Nursing, Physical Therapy, Occupational Therapy - Transfer Medications Prescriptions: aMILoride [Midamor] 2.5 mg PO DAILY #30 tablet Home Medications: Albuterol Neb [Proventil Neb] 2.5 mg IH Q4-6H PRN 06/10/17 [History] Albuterol Sulfate [Proair Hfa] 2 puff IH Q6H PRN 06/10/17 [History] Carvedilol [Coreg] 6.25 mg PO BID 06/10/17 [History] Aspirin Enteric Coated [Aspirin EC] 81 mg PO DAILY #30 tablet. 06/12/17 [Rx] Furosemide [Lasix] 40 mg PO BID 06/21/17 [History] Potassium Chloride [Klor-Con 10] 10 meq PO DAILY 06/21/17 [History] Warfarin [Coumadin] 2.5 mg PO SUMOWETHSA 06/21/17 [History] Warfarin [Coumadin] 5 mg PO TUFR 06/21/17 [History] Ferrous Sulfate 325 mg PO BIDWM #60 tablet 07/21/17 [Rx] aMILoride [Midamor] 2.5 mg PO DAILY #30 tablet 08/09/17 [Rx] Allergies/Adverse Reactions: 3 Allergy/AdvReac Type Severity Reaction Status Date / Time No Known Allergies Allergy Verified 07/16/17 11:56 Certification: Further, I certify that my clinical findings support that this patient is homebound (i.e. absences from home require considerable and taxing effort and are for medical reasons or caodaism services or infrequently or short duration when for other reasons) because: Homebound Reason: Patient requires assistance of a person or device to safely leave home Attestation: My signature below is to certify that this patient is under my care and that I, or nurse practitioner, or a physician's legislative assistant working with me, has a face-to -face encounter with this patient.
[2017-08-09] MEDS ORDERED: Potassium Chloride 40 MEQ, Lidocaine 1% 2 ML in D5% in Water 500 ML IVPB ONE (10:19)
[2017-08-09 10:47] LABS: ABG Base Excess 13 mEq/L (-2 to 3); ABG HCO3 46 mEq/L (21-27); ABG Oxygen Saturation 83 % (95-98); ABG PCO2 132 mmHg (35-45); ABG PH 7.15 pH Units (7.32-7.45); ABG PO2 67 mmHg (85-104); ABG TCO2 50 mEq/L (20-26)
[2017-08-09 12:23] LABS: ABG Base Excess 14 mEq/L (-2 to 3); ABG HCO3 47 mEq/L (21-27); ABG Oxygen Saturation 92 % (95-98); ABG PCO2 142 mmHg (35-45); ABG PH 7.13 pH Units (7.32-7.45); ABG PO2 91 mmHg (85-104); ABG TCO2 51 mEq/L (20-26); Blood Gas Respiration Rate 8
--- NOTE | 2017-08-09 13:11 | Event Note ---
<Xenia Brennan H - Last Filed: 08/09/17 15:44> Date of Encounter: 08/09/17 Time of Encounter: 13:11 08/09/2017 Indication: Respiratory distress Resident: Xenia Brennan MD Attending: Dr. Esmer Yan A timeout was completed verifying correct patient, procedure, site, positioning , and special equipment. The patient was placed in a flat position with optimal neck flexion. Sedation was obtained using etomidate 30mg IVP and 4mg IV versed. The patient was ventilated and oxygenated with BiPAP prior to intubation. A laryngoscope was inserted into the right corner of the patient's mouth with a Mac 4 blade. The vocal cords came into view via direct laryngoscopy. A 7.0-Z[place] endotracheal tube was subsequently inserted and visualized going through the vocal cords. The stylette was removed. Colorimetric change was visualized on the CO2 meter. Breath sounds were auscultated in both lung short bilaterally. The endotracheal tube was placed at 21 cm measured at the teeth. Dr. Yan was present for the entire procedure. A chest x-ray was ordered to assess for pneumothorax and to verify correct endotracheal tube placement. The patient tolerated the procedure well and there were no complications. <Esmer Yan S - Last Filed: 08/09/17 21:59> Date of Encounter: 08/09/17 I was present for the entire procedure. No immediate complications patient tolerated the procedure well.
--- NOTE | 2017-08-09 13:11 | Pulmonology History & Physical ---
Date of Encounter: 08/09/17 Time of Encounter: 13:11 History of Present Illness HPI: Ms. Quintero is a 77 year old female Past Med Surg Social Fam HX - Past Medical History Medical history: asthma, cancer, DVT, hypertension, pulmonary embolus Psychiatric history: no psych history - Past Surgical History Surgical History: appendectomy, cholecystectomy, hysterectomy, vascular surgery - Social History Smoking Status: Never smoker Smokeless Tobacco Status: No Alcohol use: none Drug use: none - Family History Father Family Member Ethnicity: Non- Living Status: Hx Family Cardiac Disorders: Yes ([place], CAD) Mother Family Member Ethnicity: Non- Living Status: Hx Family Cardiac Disorders: Yes (CHF, CAD, TIAs) Hx Family Endocrine Disorder: Yes (DM) Brother Family Member Ethnicity: Non- Living Status: Hx Family Cardiac Disorders: Yes ([place], CAD, HTN) Sister Family Member Ethnicity: Non- Living Status: Hx Family Cardiac Disorders: Yes (HF, CAD, HTN) Medications and Allergies Albuterol Neb [Proventil Neb] 2.5 mg IH Q4-6H PRN 06/10/17 [History] Albuterol Sulfate [Proair Hfa] 2 puff IH Q6H PRN 06/10/17 [History] Carvedilol [Coreg] 6.25 mg PO BID 06/10/17 [History] Aspirin Enteric Coated [Aspirin EC] 81 mg PO DAILY #30 tablet. 06/12/17 [Rx] Furosemide [Lasix] 40 mg PO BID 06/21/17 [History] Potassium Chloride [Klor-Con 10] 10 meq PO DAILY 06/21/17 [History] Warfarin [Coumadin] 2.5 mg PO SUMOWETHSA 06/21/17 [History] Warfarin [Coumadin] 5 mg PO TUFR 06/21/17 [History] Ferrous Sulfate 325 mg PO BIDWM #60 tablet 07/21/17 [Rx] aMILoride [Midamor] 2.5 mg PO DAILY #30 tablet 08/09/17 [Rx] 3 Allergy/AdvReac Type Severity Reaction Status Date / Time No Known Allergies Allergy Verified 07/16/17 11:56 All Systems: A 10-system review of systems was performed and is negative for pertinent findings except as documented above in the HPI. Results - Laboratory Findings CBC and BMP: 08/09/17 03:42 08/09/17 03:42 ABG ABG pH 7.13 pH Units (7.32-7.45) L* 08/09/17 12:08 ABG pCO2 142 mmHg (35-45) H* 08/09/17 12:08 ABG pO2 91 mmHg (85-104) 08/09/17 12:08 ABG O2 Saturation 92 % (95-98) L 08/09/17 12:08 PT/INR, D-dimer PT 26.0 Seconds (9.4-12.1) H 08/09/17 03:42 Abnormal lab findings: Abnormal lab results RBC 3.37 M/mcL (3.82-4.97) L 08/09/17 03:42 Hgb 8.6 g/dL (11.5-15.4) L 08/09/17 03:42 Hct 28.6 % (35.3-44.9) L 08/09/17 03:42 MCH 25.5 pg (28.0-33.3) L 08/09/17 03:42 MCHC 30.1 g/dL (31.6-35.5) L 08/09/17 03:42 RDW 19.2 % (11.5-14.5) H 08/09/17 03:42 Lymphocytes # 0.5 K/mcL (0.6-4.6) L 08/09/17 03:42 PT 26.0 Seconds (9.4-12.1) H 08/09/17 03:42 ABG pH 7.13 pH Units (7.32-7.45) L* 08/09/17 12:08 ABG pCO2 142 mmHg (35-45) H* 08/09/17 12:08 ABG HCO3 47 mEq/L (21-27) H 08/09/17 12:08 ABG Total CO2 51 mEq/L (20-26) H 08/09/17 12:08 ABG O2 Saturation 92 % (95-98) L 08/09/17 12:08 ABG Base Excess 14 mEq/L (-2 to 3) H 08/09/17 12:08 Potassium 3.1 mEq/L (3.5-4.5) L 08/09/17 03:42 Chloride 91 mEq/L (98-109) L 08/09/17 03:42 Carbon Dioxide 42 mEq/L (19-29) H* 08/09/17 03:42 BUN 27 mg/dL (7-20) H 08/09/17 03:42 Creatinine 1.35 mg/dL (0.57-1.11) H 08/09/17 03:42 Est GFR ( Amer) 46 (> 60) L 08/09/17 03:42 Est GFR (Non-Af Amer) 38 (> 60) L 08/09/17 03:42 Glucose 114 mg/dL (70-99) H 08/09/17 03:42 POC Glucose 150 (58-89) H 08/09/17 12:51 Calcium 8.3 mg/dL (8.6-10.8) L 08/09/17 03:42 Urine Clarity Cloudy (Clear) A 08/06/17 15:01 Urine Protein 30 mg/dL (Neg-Trace) H 08/06/17 15:01 Urine Ketones Trace mg/dL (Negative) H 08/06/17 15:01 Ur Leukocyte Esterase Small (Negative) H 08/06/17 15:01 Urine Microscopic RBC 3-5 per hpf (0-3) H 08/06/17 15:01 Urine Microscopic WBC 5-15 per hpf (0-3) H 08/06/17 15:01 Ur Squamous Epith Cells Many per lpf (None-Few) H 08/06/17 15:01 Ur Culture Indicated? YES (NO) A 08/06/17 15:01 Pleural Appearance Cloudy (Clear) A 08/06/17 14:22
[2017-08-09] MEDS ORDERED: Lacri-Lube 3.5 GM TUBE BOTH EYES PRN (13:45)
[2017-08-09] MEDS: Dexmedetomidine HCl 400 MCG/100 ML MLS IVC SCH (13:59)
[2017-08-09] MEDS ORDERED: Potassium Chloride Elixir 20 MEQ/15 ML UDC GTUBE ONE (14:09)
[2017-08-09 14:34] LABS: ABG Base Excess 20 mEq/L (-2 to 3); ABG HCO3 45 mEq/L (21-27); ABG Oxygen Saturation 100 % (95-98); ABG PCO2 54 mmHg (35-45); ABG PH 7.53 pH Units (7.32-7.45); ABG PO2 148 mmHg (85-104); ABG TCO2 47 mEq/L (20-26); Blood Gas Modality VC; Blood Gas PEEP 5 cm H2O; Blood Gas Respiration Rate 18; Blood Gas VT 420 cc
[2017-08-09] MEDS: FentaNYL (PF) 1,000 MCG in 0.9 % Sodium Chloride 80 ML IVC SCH (14:38)
--- NOTE | 2017-08-09 14:38 | Pulmonology Consult Note ---
<Xenia Brennan - Last Filed: 08/09/17 15:06> Date of Encounter: 08/09/17 Time of Encounter: 13:30 Assessment and Plan (1) Acute and chronic respiratory failure with hypercapnia Current Visit: Yes Status: Acute Patient became minimally responsive prior to transfer to ICU receiving 5 grams of narcan with decreased rate of breathing and pinpoint pupils. -Endotracheal intubation performed. ABG prior showed respiratory acidosis of 7.13, pCO2 of 142, and bicarb of 42, and pO2 of 91. ABG after showed ph 7.53, PCO2 of 54, and bicarbonate of 45. -CXR 08/09-bibasilar volume loss with findings suggestive of CHF. -Sedation with Precedex and fentanyl. -IV furosemide. -Patient with likely chronic respiratory acidosis with metabolic compensation at baseline. This explains the ABG status post intubation. We will continue with diuresis and manage vent accordingly. -Powergl[facility] EPIV access (2) Acute encephalopathy Current Visit: Yes Status: Acute Patient with abrupt change in mental status. Opiod overdose vs CO2 narcosis vs intracranial bleed. -Patient on anti-coagulation- Will order CT without contrast of the head to rule out intracranial bleed. -5mg Narcan given. Will mechanically manage patient's respiratory status in the meantime. -Manage fluid overload. (3) Acute exacerbation of CHF (congestive heart failure) Current Visit: Yes Status: Acute Echocardiogram on 06-11-17 shows EF 65% with mild LVH, mild diastolic dysfunction , and mild pulmonary hypertension. Patient with obvious bilateral pulmonary edema and transudative effusion on cxr and pleural fluid analysis as well as crackles on PE. -new ECG on 08-09-2017 with no ischemic changes compared to ECG on 08/06 and 10/2016. -Will give 40mg IV lasix BID. -Reorder new limited echocardiogram. -sputum culture Qualifiers: Congestive heart failure type: diastolic Qualified Code(s): I50.33 - Acute on chronic diastolic (congestive) heart failure (4) Pleural effusion Current Visit: No Status: Acute s/p bilateral bilateral thoracentesis with transudative effusion. (5) Anemia Current Visit: Yes Status: Chronic Stable Qualifiers: Anemia type: due to chronic kidney disease Chronic kidney disease stage: stage 3 (moderate) Qualified Code(s): N18.3 - Chronic kidney disease, stage 3 (moderate); D63.1 - Anemia in chronic kidney disease; D63.1 - Anemia in chronic kidney disease (6) Hx of pulmonary embolus Current Visit: No Status: Chronic Continue anti-coagulation with coumadin. -INR therapeutic History of Present Illness Consult date: 08/09/17 Requesting physician: Marysol Huff Reason for consult: other (Acute Respiratory Failure with Hypercapnia) Chief complaint: Acute respiratory failure History of present illness: Ms. Quintero is a 77-year-old female with multiple medical morbidities including asthma, cancer, DVT, hypertension, and stage III chronic kidney who presented to [facility] on August 06 with a chief complaint of shortness of breath. Patient states she began experiencing progressive shortness of breath including dyspnea at rest, orthopnea, and bilateral lower extremity edema. She also reported increased sputum production which was yellowish in color. She reported chills, yet denied any chest pain. Patient was admitted and started on 60 mg IV daily of Lasix. She was diagnosed with CHF as a prior echocardiogram showed LV diastolic dysfunction and moderate pulmonary hypertension. Patient was also treated for HCAP started on vancomycin and Zosyn after sputum cultures were ordered. Patient underwent a bilateral thoracentesis during hospitalization. Pleural fluid analysis is suggested transudative effusion. Patient became slightly metabolically alkalotic which was thought to be chronic. Patient was changed to oral Lasix with close renal function monitoring and I&O monitoring. Antibiotics were discontinued after checks x-ray failed to show infiltration and patient failed to demonstrate any clinical signs of pneumonia including fever. Overnight, , patient complained of pain around the site of her thoracentesis and was given opiates for pain control. This morning, patient began to develop signs of respiratory distress including decreased alertness, decreased rate, and hypercapnia. She was tranferred to the ICU and subsequently underwent RSI and endotracheal intubation. Past Med Surg Social Fam HX - Past Medical History Source: old records reviewed Medical history: asthma, cancer, DVT, hypertension, pulmonary embolus Psychiatric history: no psych history - Past Surgical History Surgical History: appendectomy, cholecystectomy, hysterectomy, vascular surgery - Social History Smoking Status: Never smoker Smokeless Tobacco Status: No Alcohol use: none Drug use: none - Family History Father Family Member Ethnicity: Non- Living Status: Hx Family Cardiac Disorders: Yes ([place], CAD) Mother Family Member Ethnicity: Non- Living Status: Hx Family Cardiac Disorders: Yes (CHF, CAD, TIAs) Hx Family Endocrine Disorder: Yes (DM) Brother Family Member Ethnicity: Non- Living Status: Hx Family Cardiac Disorders: Yes ([place], CAD, HTN) Sister Family Member Ethnicity: Non- Living Status: Hx Family Cardiac Disorders: Yes (HF, CAD, HTN) Medications and Allergies Albuterol Neb [Proventil Neb] 2.5 mg IH Q4-6H PRN 06/10/17 [History] Albuterol Sulfate [Proair Hfa] 2 puff IH Q6H PRN 06/10/17 [History] Carvedilol [Coreg] 6.25 mg PO BID 06/10/17 [History] Aspirin Enteric Coated [Aspirin EC] 81 mg PO DAILY #30 tablet. 06/12/17 [Rx] Furosemide [Lasix] 40 mg PO BID 06/21/17 [History] Potassium Chloride [Klor-Con 10] 10 meq PO DAILY 06/21/17 [History] Warfarin [Coumadin] 2.5 mg PO SUMOWETHSA 06/21/17 [History] Warfarin [Coumadin] 5 mg PO TUFR 06/21/17 [History] Ferrous Sulfate 325 mg PO BIDWM #60 tablet 07/21/17 [Rx] aMILoride [Midamor] 2.5 mg PO DAILY #30 tablet 08/09/17 [Rx] 3 Allergy/AdvReac Type Severity Reaction Status Date / Time No Known Allergies Allergy Verified 07/16/17 11:56 ROS unobtainable: due to endotracheal tube Physical Examination Vital Signs: Vital Signs, Last 4 Hours Pulse 08/09/17 13:00 86 General appearance: other (intubated and sedated) Eyes: other (pinpoint pupils) ENT: oropharynx dry, oropharyngeal exudate present Neck: supple Effort: other (intubated) Auscultation: bilateral: clear, rales (bilateral bases, more reduced on left than right) Cardiovascular: regular rate and rhythm Gastrointestinal: normoactive bowel sounds, soft, non-tender, non-distended Integumentary: normal Extremities: no cyanosis, pulses normal, edema (3+ bilaterally) unable to assess due to mental status Results - Laboratory Findings CBC and BMP: 08/09/17 03:42 08/09/17 03:42 ABG ABG pH 7.53 pH Units (7.32-7.45) H D 08/09/17 14:31 ABG pCO2 54 mmHg (35-45) H D 08/09/17 14:31 ABG pO2 148 mmHg (85-104) H D 08/09/17 14:31 ABG O2 Saturation 100 % (95-98) H 08/09/17 14:31 PT/INR, D-dimer PT 26.0 Seconds (9.4-12.1) H 08/09/17 03:42 Abnormal lab findings: Abnormal lab results RBC 3.37 M/mcL (3.82-4.97) L 08/09/17 03:42 Hgb 8.6 g/dL (11.5-15.4) L 08/09/17 03:42 Hct 28.6 % (35.3-44.9) L 08/09/17 03:42 MCH 25.5 pg (28.0-33.3) L 08/09/17 03:42 MCHC 30.1 g/dL (31.6-35.5) L 08/09/17 03:42 RDW 19.2 % (11.5-14.5) H 08/09/17 03:42 Lymphocytes # 0.5 K/mcL (0.6-4.6) L 08/09/17 03:42 PT 26.0 Seconds (9.4-12.1) H 08/09/17 03:42 ABG pH 7.53 pH Units (7.32-7.45) H D 08/09/17 14:31 ABG pCO2 54 mmHg (35-45) H D 08/09/17 14:31 ABG pO2 148 mmHg (85-104) H D 08/09/17 14:31 ABG HCO3 45 mEq/L (21-27) H 08/09/17 14:31 ABG Total CO2 47 mEq/L (20-26) H 08/09/17 14:31 ABG O2 Saturation 100 % (95-98) H 08/09/17 14:31 ABG Base Excess 20 mEq/L (-2 to 3) H 08/09/17 14:31 Potassium 3.1 mEq/L (3.5-4.5) L 08/09/17 03:42 Chloride 91 mEq/L (98-109) L 08/09/17 03:42 Carbon Dioxide 42 mEq/L (19-29) H* 08/09/17 03:42 BUN 27 mg/dL (7-20) H 08/09/17 03:42 Creatinine 1.35 mg/dL (0.57-1.11) H 08/09/17 03:42 Est GFR ( Amer) 46 (> 60) L 08/09/17 03:42 Est GFR (Non-Af Amer) 38 (> 60) L 08/09/17 03:42 Glucose 114 mg/dL (70-99) H 08/09/17 03:42 POC Glucose 150 (58-89) H 08/09/17 12:51 Calcium 8.3 mg/dL (8.6-10.8) L 08/09/17 03:42 Urine Clarity Cloudy (Clear) A 08/06/17 15:01 Urine Protein 30 mg/dL (Neg-Trace) H 08/06/17 15:01 Urine Ketones Trace mg/dL (Negative) H 08/06/17 15:01 Ur Leukocyte Esterase Small (Negative) H 08/06/17 15:01 Urine Microscopic RBC 3-5 per hpf (0-3) H 08/06/17 15:01 Urine Microscopic WBC 5-15 per hpf (0-3) H 08/06/17 15:01 Ur Squamous Epith Cells Many per lpf (None-Few) H 08/06/17 15:01 Ur Culture Indicated? YES (NO) A 08/06/17 15:01 Pleural Appearance Cloudy (Clear) A 08/06/17 14:22 - Microbiology Findings Microbiology Findings: Microbiology, Last 48 Hours 08/07/17 09:40 Body Fluid Culture - Preliminary Pleural Fluid - Clinical Findings Intake & Output: Intake & Output 08/08/17 08/09/17 08/09/17 23:59 07:59 15:59 Intake Total 120 / 120 0 / 0 Output Total 400 / 400 0 / 0 Balance -280 / -280 0 / 0 Weight 74.6 kg 80 kg Consult Discharge Plan - Plan Instructions: Heart Failure (DC), Acute Respiratory Distress Syndrome (DC), Anemia (GEN) Additional Instructions: Follow up with your travel ticketing reviewer as scheduled Referrals: Robles Koch MD [Primary Care Provider] - (in 1-2 weeks) Prescriptions: aMILoride [Midamor] 2.5 mg PO DAILY #30 tablet <AlfredoEsmer goodman S - Last Filed: 08/09/17 22:22> Date of Encounter: 08/09/17 All Systems: A 10-system review of systems was performed and is negative for pertinent findings except as documented above in the HPI. Physical Examination Vital Signs: Vital Signs, Last 4 Hours Temp Pulse Resp BP Pulse Ox 08/09/17 17:00 96 18 78/49 98 08/09/17 16:11 99.2 F 08/09/17 15:53 86 08/09/17 15:36 18 103/65 98 08/09/17 15:00 84 18 76/50 100 08/09/17 14:00 96 18 119/54 100 Ventilator Settings Ventilator Settings: Ventilator Settings, Last 8 Hours Ventilator Mode A/C Ventilator Mode A/C Ventilator Mode A/C Ventilator Mode A/C Ventilator Mode VC+ Ventilator Mode A/C Ventilator Mode VC+ Ventilator Mode A/C Ventilator Tidal Volume 310 Setting Ventilator Tidal Volume 310 Setting Ventilator Tidal Volume 310 Setting Ventilator Tidal Volume 420 Setting Ventilator Tidal Volume 420 Setting Ventilator Tidal Volume 420 Setting Ventilator Tidal Volume 42 Setting Ventilator Tidal Volume 420 Setting Ventilator Respiratory Rate 18 Setting Ventilator Respiratory Rate 18 Setting Ventilator Respiratory Rate 18 Setting Ventilator Respiratory Rate 18 Setting Ventilator Respiratory Rate 18 Setting Ventilator Respiratory Rate 18 Setting Ventilator Respiratory Rate 18 Setting Ventilator Respiratory Rate 18 Setting Actual Respiratory Rate 18 Actual Respiratory Rate 18 Actual Respiratory Rate 18 Actual Respiratory Rate 18 Actual Respiratory Rate 18 Actual Respiratory Rate 18 Actual Respiratory Rate 18 Positive End Expiratory 5 Pressure Positive End Expiratory 5 Pressure Positive End Expiratory 5 Pressure Positive End Expiratory 5 Pressure Positive End Expiratory 5 Pressure Positive End Expiratory 5 Pressure Positive End Expiratory 5 Pressure Positive End Expiratory 5 Pressure Peak Inspiratory Airway 23 Pressure Peak Inspiratory Airway 22 Pressure Peak Inspiratory Airway 23 Pressure Peak Inspiratory Airway 32 Pressure Peak Inspiratory Airway 33 Pressure Peak Inspiratory Airway 32 Pressure Peak Inspiratory Airway 34 Pressure Results - Laboratory Findings CBC and BMP: 08/09/17 03:42 08/09/17 03:42 ABG ABG pH 7.53 pH Units (7.32-7.45) H D 08/09/17 14:31 ABG pCO2 54 mmHg (35-45) H D 08/09/17 14:31 ABG pO2 148 mmHg (85-104) H D 08/09/17 14:31 ABG O2 Saturation 100 % (95-98) H 08/09/17 14:31 PT/INR, D-dimer PT 26.0 Seconds (9.4-12.1) H 08/09/17 03:42 Abnormal lab findings: Abnormal lab results RBC 3.37 M/mcL (3.82-4.97) L 08/09/17 03:42 Hgb 8.6 g/dL (11.5-15.4) L 08/09/17 03:42 Hct 28.6 % (35.3-44.9) L 08/09/17 03:42 MCH 25.5 pg (28.0-33.3) L 08/09/17 03:42 MCHC 30.1 g/dL (31.6-35.5) L 08/09/17 03:42 RDW 19.2 % (11.5-14.5) H 08/09/17 03:42 Lymphocytes # 0.5 K/mcL (0.6-4.6) L 08/09/17 03:42 PT 26.0 Seconds (9.4-12.1) H 08/09/17 03:42 ABG pH 7.53 pH Units (7.32-7.45) H D 08/09/17 14:31 ABG pCO2 54 mmHg (35-45) H D 08/09/17 14:31 ABG pO2 148 mmHg (85-104) H D 08/09/17 14:31 ABG HCO3 45 mEq/L (21-27) H 08/09/17 14:31 ABG Total CO2 47 mEq/L (20-26) H 08/09/17 14:31 ABG O2 Saturation 100 % (95-98) H 08/09/17 14:31 ABG Base Excess 20 mEq/L (-2 to 3) H 08/09/17 14:31 Potassium 3.1 mEq/L (3.5-4.5) L 08/09/17 03:42 Chloride 91 mEq/L (98-109) L 08/09/17 03:42 Carbon Dioxide 42 mEq/L (19-29) H* 08/09/17 03:42 BUN 27 mg/dL (7-20) H 08/09/17 03:42 Creatinine 1.35 mg/dL (0.57-1.11) H 08/09/17 03:42 Est GFR ( Amer) 46 (> 60) L 08/09/17 03:42 Est GFR (Non-Af Amer) 38 (> 60) L 08/09/17 03:42 Glucose 114 mg/dL (70-99) H 08/09/17 03:42 POC Glucose 150 (58-89) H 08/09/17 12:51 Calcium 8.3 mg/dL (8.6-10.8) L 08/09/17 03:42 Urine Clarity Cloudy (Clear) A 08/06/17 15:01 Urine Protein 30 mg/dL (Neg-Trace) H 08/06/17 15:01 Urine Ketones Trace mg/dL (Negative) H 08/06/17 15:01 Ur Leukocyte Esterase Small (Negative) H 08/06/17 15:01 Urine Microscopic RBC 3-5 per hpf (0-3) H 08/06/17 15:01 Urine Microscopic WBC 5-15 per hpf (0-3) H 08/06/17 15:01 Ur Squamous Epith Cells Many per lpf (None-Few) H 08/06/17 15:01 Ur Culture Indicated? YES (NO) A 08/06/17 15:01 Pleural Appearance Cloudy (Clear) A 08/06/17 14:22 - Microbiology Findings Microbiology Findings: Microbiology, Last 48 Hours 08/07/17 09:40 Body Fluid Culture - Preliminary Pleural Fluid - Clinical Findings Intake & Output: Intake & Output 08/09/17 08/09/17 08/09/17 07:59 15:59 23:59 Intake Total 0 / 0 252.5 / 252.5 Output Total 0 / 0 Balance 0 / 0 252.5 / 252.5 Weight 74.6 kg 80 kg - Attending Attestation I saw the patient with the resident agree with History and Physical exam findings. Labs and Radiology were reviewed Ventilator data were reviewed adjusted TV and RR after ABG showed Alkalosis most likely due to post hypercapnic metabolic alkalosis and also contraction PULLEY MAN: Patient was completely encephalopathic most likely due to CO2 narcosis , now she is intubated and sedated NECK : No JVD appreciated Pulmonary : Patient is hypoxic and hypercarbic on ventilator adjusted TV , patient presented with acute on chronic hypercarbic respiratory failure , patient most likely underlying COPD and CHF who has chronic hypercapnia received opioids because of chest pain on the left sided post thoracentesis after that she developed acute on chronic hypercapnia before i intubated she had ataxic breathing /Biots breathing typical after opioid use , had some secretions from the ET tube with spike in fever will start on broad spectrum antibiotics blood cultures are negative sputum prelim didnt show any bacteria . Patient had left sided thoracentesis that improved her lung mechanics . Cardiac : Blood pressure border line will hold the diuresis , ECHO showed HFPEF Nutrition/GI: Patient is NPO , PPI prophylaxis Renal : PREM on Chronic kidney injury Nephrology following . Heme onc : No acute issues ID : Fever with some increased sputum production to continue antibiotics. Musculo skeletal / skin issues : No acute issues Disposition : Critically ill Code status: According to patient wouldnt want intubation , Ok for intubating short period of time . Family/POA: , Daughter and Grand Daughter . I spent 45 minutes of Critical care in medical decision making in supporting organ function and preventing further decline .
[2017-08-09] MEDS: Furosemide 40 MG/4 ML VIAL IVP SCH (14:39)
[2017-08-09] MEDS ORDERED: *HR* Warfarin 5 MG TABLET PO SCH (14:45)
--- NOTE | 2017-08-09 15:47 | Electrocardiograph Report ---
[place] [id number] Test Date: 2017-08-06 Pat Name: Bella Quintero Department: 104 Room: [facility] Gender: F Cardiovascular Operating Room Nurse: KINA : [id number] Requested By: Jhony Long Order Number: [id number] Reading MD: Alberto Andre Measurements Intervals [place] Rate: 93 P: 19 W[place]: 167 QRS: 16 QRSD: 90 T: 3 QT: 318 QTc: 369 Interpretive Statements SINUS RHYTHM Electronically Signed On 08-09-2017 15:45:36 EST by Alberto Andre
--- NOTE | 2017-08-09 15:52 | Internal Med Progress Note ---
Date of Encounter: 08/09/17 Time of Encounter: 08:50 - Assessment and plan (1) Acute and chronic respiratory failure Current Visit: Yes Status: Acute Assessment and plan: Patient with acute hypoxic respiratory failure with severe respiratory acidosis. 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 Trial of BiPAP. Transfer to ICU. High risk for complications. If patient's condition deteriorates or does not improve, patient will be intubated. Discussed with was present at bedside. He is agreeable to intubation and mechanical ventilation at least temporarily. Critical care time: 45 minutes. Qualifiers: Respiratory failure complication: hypercapnia Qualified Code(s): J96.22 - Acute and chronic respiratory failure with hypercapnia (2) Acute exacerbation of CHF (congestive heart failure) Current Visit: Yes Status: Acute Assessment and plan: CHF has been improving. Patient has been transitioned to oral Lasix. She does have contraction alkalosis/metabolic alkalosis. We will consult nephrology to help manage this. We will also start patient on low-dose amiloride and decreased Lasix dosage. Qualifiers: Congestive heart failure type: diastolic Qualified Code(s): I50.33 - Acute on chronic diastolic (congestive) heart failure (3) Anemia Current Visit: Yes Status: Chronic Assessment and plan: Hemoglobin levels are stable. Due to chronic kidney disease. Qualifiers: Anemia type: due to chronic kidney disease Chronic kidney disease stage: stage 3 (moderate) Qualified Code(s): N18.3 - Chronic kidney disease, stage 3 (moderate); D63.1 - Anemia in chronic kidney disease; D63.1 - Anemia in chronic kidney disease (4) Bilateral pleural effusion Current Visit: Yes Status: Acute Assessment and plan: Due to congestive heart failure. Cultures have been negative so far. (5) Chronic kidney disease, stage III (moderate) Current Visit: Yes Status: Chronic Assessment and plan: Renal function remains stable. Patient does have metabolic alkalosis likely due to Lasix use. Consult nephrology for recommendations. Decrease Lasix dose and start patient on amiloride. (6) HTN (hypertension) Current Visit: Yes Status: Chronic Assessment and plan: Blood pressure is well controlled Qualifiers: Hypertension type: essential hypertension Qualified Code(s): I10 - Essential (primary) hypertension (7) Hx of deep venous thrombosis Current Visit: Yes Status: Acute Assessment and plan: Continue anticoagulation with Coumadin (8) Hx of pulmonary embolus Current Visit: No Status: Chronic (9) HCAP (healthcare-associated pneumonia) Current Visit: Yes Status: Ruled-out - Subjective Interval history: Patient was very somnolent this morning and difficult to arouse. She received Narcan and then her symptoms improved. When I saw her earlier this morning. She was sitting up in chair eating breakfast. Reported no new complaints. However soon after her mental status started to decline with increased somnolence. ABG done showed respiratory acidosis and patient was placed on BiPAP. Her condition did not improve and so she was transferred to ICU. Patient did receive 15 mg of oral morphine last night as she was complaining of severe pain in her left upper back at the site of thoracentesis. When she reported that the pain had improved, it seems to be causing increased somnolence due to her advanced age and chronic kidney disease. - Constitutional Vitals: Temp Pulse Resp BP Pulse Ox 97.8 F 84 18 103/65 98 08/09/17 13:00 08/09/17 15:00 08/09/17 15:36 08/09/17 15:36 08/09/17 15:36 Exam: Patient is very somnolent. Difficult to awake. - Eye Pupils: Present: miosis Additional comments: Pupils are reactive but miotic - Respiratory Respiratory exam: Present: decreased breath sounds. Absent: accessory muscle use, rales, rhonchi, wheezes Additional comments: Shallow breathing - Cardiovascular Cardiovascular exam: Present: RRR, +S1, +S2. Absent: diastolic murmur, gallop, rubs, systolic murmur - GI/Abdominal GI/Abdominal exam: Present: normal bowel sounds, soft, no peritoneal signs. Absent: distended, tenderness - Neurological Exam Neurological exam: Present: altered. Absent: facial droop, speech deficit - Skin Skin exam: Present: dry, intact Internal Medicine: Result - Labs CBC & Chem 7: 08/09/17 03:42 08/09/17 03:42 Labs: Short CBC 08/09/17 Range/Units 03:42 WBC 6.1 (4.3-11.1) K/mcL Hgb 8.6 L (11.5-15.4) g/dL Hct 28.6 L (35.3-44.9) % Plt Count 226 (140-400) K/mcL Neutrophils # 4.7 (1.6-8.9) K/mcL BMP 08/09/17 03:42 Sodium 140 Potassium 3.1 L Chloride 91 L Carbon Dioxide 42 H* BUN 27 H Creatinine 1.35 H Glucose 114 H Calcium 8.3 L - ABG Interpretation ABG results: ABG ABG pH 7.53 pH Units (7.32-7.45) H D 08/09/17 14:31 ABG pCO2 54 mmHg (35-45) H D 08/09/17 14:31 ABG pO2 148 mmHg (85-104) H D 08/09/17 14:31 ABG O2 Saturation 100 % (95-98) H 08/09/17 14:31 PT/INR, D-dimer PT 26.0 Seconds (9.4-12.1) H 08/09/17 03:42 - Impressions Impressions Chest X-Ray 08/09/17 13:07 IMPRESSION: 1. Endotracheal tube in satisfactory position. 2. OG tube courses into the abdomen. 3. Bibasilar volume loss with findings suggesting congestive heart failure. D/ / 08/09/2017 13:43:38 Patrick De La Garza MD / shiva Interpreting Provider: Patrick De La Garza MD Consult Discharge Plan - Plan Instructions: Heart Failure (DC), Acute Respiratory Distress Syndrome (DC), Anemia (GEN) Additional Instructions: Follow up with your program dir as scheduled Referrals: Robles Koch MD [Primary Care Provider] - (in 1-2 weeks) Prescriptions: aMILoride [Midamor] 2.5 mg PO DAILY #30 tablet
[2017-08-09] MEDS ORDERED: Albuterol 2.5 MG/3 ML NEBULIZER IH PRN (16:00)
[2017-08-09] MEDS ORDERED: Furosemide 40 MG TABLET PO SCH (17:00)
[2017-08-09] MEDS ORDERED: Furosemide 40 MG/4 ML VIAL IVP SCH (17:00)
[2017-08-09] MEDS: Lacri-Lube 3.5 GM TUBE BOTH EYES SCH ×2 (17:12→20:55)
[2017-08-09] MEDS: aMILoride 5 MG TABLET PO SCH (17:13)
[2017-08-09] MEDS ORDERED: *HR* Warfarin 5 MG TABLET PO ONE (18:00)
--- NOTE | 2017-08-09 19:12 | Event Note ---
Addendum entered and electronically signed by David Ybarra DO 08/09/17 20:31: This note belongs to different patient and was placed in the wrong chart. Original Note: <David Ybarra - Last Filed: 08/09/17 18:43> Date of Encounter: 08/09/17 Time of Encounter: 17:42 Patient was noted to have V-tach/V-fib per bedside monitor and no palpable pulse per nurse. Code blue was called immediately at 1742 and CPR was initiated. Patient received first dose of epinephrine at 1743. Still no palpable femoral pulse at 1744 so 200J shock was given. CPR was resumed. At 1745 , patient was noted to have palpable femoral pulse but patient went back to V- fib without palpable femoral pulses at 1746. CPR was resumed and patient had 300J shock at 1746. Second dose of epinephrine was given at 1747. Another 300J shock was given at 1749. Amiodarone 300 mg bolus was started at around 1750. HCO3 push was given at 1751 and magnesium 2 gram was given at 1752. Lab draw and second HCO3 push was done at 1753. 360J shock was given at 1754. Third dose of epinephrine was given at 1756. Patient had palpable femoral pulse at 1758 with sinus tachycardia at rate of 113. At 1800, patient received fluid bolus. Patient continued to have palpable pulses but wide complex sinus tachycardia was noted on bedside monitor. Patient lost pulse and went into V-fib the third time at 1805. CPR was resumed again and patient received fourth dose of epinephrine. Another 360J shock was given at 1808 along with another amiodarone 150 mg bolus. While CPR was continued, Dr. Cole called patient's son and updated him about patient's current condition. Patient's son agreed to hold CPR at this time and CPR was held at 1809. Given patient continued to go back to V-fib despite of multiple rounds of CPR and medications, it's believed that all of the effort is unlikely to bring patient back to return of persistent spontaneous circulation. In addition, patient was also noted to have multiple attempts to push whoever performing CPR away from him. And per patient's nurse, patient did indicate that he does not want resuscitation despite of his son wants him to be full code. Nurse asked patient to squeeze hand if he does not want CPR done and patient did squeeze the nurse's hand multiple times. With all those information, all physicians at the scene agreed that further CPR/ resuscitation is very unlikely to bring patient back to appropriate and persistent return of spontaneous circulation. Patient was pronounced at 181 with no palpable pulse, no audible breath sounds and heart sounds. <Esmer Yan S - Last Filed: 08/09/17 23:23> Date of Encounter: 08/09/17 This note was wrongly charted by resident physician this note doesnt belong to this patient .
--- NOTE | 2017-08-09 20:06 | Nephrology Consult Note ---
Date of Encounter: 08/09/17 Time of Encounter: 18:10 Assessment and Plan (1) Chronic kidney disease, stage III (moderate) Current Visit: Yes Status: Chronic CKD stage III and nonoliguric. Noted to have pleural effusions and peripheral edema and has required loop diuretics. She has COPD with chronic respiratory acidosis and compensatory metabolic alkalosis. Of note with both the diuretics and acute on chronic hypercapneic respiratory failure, her serum CO2 has worsened. Alkalosis can exacerbate hypokalemia. Agree with replacement and resuming Amiloride, which is on her home Rx list. Plus having intubated her will help with the respiratory acidosis. So if her metabolic alkalosis is any worse tomorrow and as long as the hypokalemia is trending better, then tomorrow I would recommend adding Acetazolemide. I met with the pt's daughter, and other family members to update them. Thank you for consulting the [facility] group. Will follow with you. (2) Metabolic alkalosis with respiratory acidosis Current Visit: Yes Status: Acute See above (3) Lower extremity edema Current Visit: No Status: Acute See above. Continue diuretics. (4) Acute and chronic respiratory failure with hypercapnia Current Visit: Yes Status: Acute See above. Now intubated. (5) CHF (congestive heart failure) Current Visit: Yes Status: Acute See above. As per primary. Qualifiers: Qualified Code(s): I50.9 - Heart failure, unspecified History of Present Illness - Reason for Consult Consult date: 08/09/17 Acute Kidney Injury Requesting physician: Marysol Huff - Chief Complaint Dyspnea, CHF - History of Present Illness Bella Quintero is a very pleasant 77 y/o female with a pmh COPD, CKD stage III, CHF and et al who presented with dyspnea. She was intuabated earlier today, which limits ROS and subjective / HPI. I reviewed the labs, meds lists ( home and active Rx), progress notes, and imaging. The pt's and daughter were at the bedside. 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 She routinely does not take NSAIDs, her affirmed that she only occasionally takes Tylenol. She has required diuretics and thoracentesis. Past Med Surg Social Fam HX - Past Medical History Medical history: asthma, cancer, DVT, hypertension, pulmonary embolus Psychiatric history: no psych history - Past Surgical History Surgical History: appendectomy, cholecystectomy, hysterectomy, vascular surgery - Social History Smoking Status: Never smoker Smokeless Tobacco Status: No Alcohol use: none Drug use: none - Family History Father Family Member Ethnicity: Non- Living Status: Hx Family Cardiac Disorders: Yes (DC, CAD) Mother Family Member Ethnicity: Non- Living Status: Hx Family Cardiac Disorders: Yes (CHF, CAD, TIAs) Hx Family Endocrine Disorder: Yes (DM) Brother Family Member Ethnicity: Non- Living Status: Hx Family Cardiac Disorders: Yes (DC, CAD, HTN) Sister Family Member Ethnicity: Non- Living Status: Hx Family Cardiac Disorders: Yes (HF, CAD, HTN) Medications and Allergies Albuterol Neb [Proventil Neb] 2.5 mg IH Q4-6H PRN 06/10/17 [History] Albuterol Sulfate [Proair Hfa] 2 puff IH Q6H PRN 06/10/17 [History] Carvedilol [Coreg] 6.25 mg PO BID 06/10/17 [History] Aspirin Enteric Coated [Aspirin EC] 81 mg PO DAILY #30 tablet. 06/12/17 [Rx] Furosemide [Lasix] 40 mg PO BID 06/21/17 [History] Potassium Chloride [Klor-Con 10] 10 meq PO DAILY 06/21/17 [History] Warfarin [Coumadin] 2.5 mg PO SUMOWETHSA 06/21/17 [History] Warfarin [Coumadin] 5 mg PO TUFR 06/21/17 [History] Ferrous Sulfate 325 mg PO BIDWM #60 tablet 07/21/17 [Rx] aMILoride [Midamor] 2.5 mg PO DAILY #30 tablet 08/09/17 [Rx] 3 Allergy/AdvReac Type Severity Reaction Status Date / Time No Known Allergies Allergy Verified 07/16/17 11:56 Review of Systems ROS unobtainable: due to endotracheal tube Exam - Vital Signs Vital signs: Initial Vital Signs Temp Pulse Resp BP Pulse Ox 97.8 F 83 20 130/82 97 08/06/17 12:09 08/06/17 12:09 08/06/17 12:09 08/06/17 12:09 08/06/17 12:09 Vital Signs - Last 8 Hours Temp Pulse Resp BP Pulse Ox 08/09/17 18:00 87 18 86/55 95 08/09/17 17:00 96 18 78/49 98 08/09/17 16:11 99.2 F 08/09/17 15:53 86 08/09/17 15:36 18 103/65 98 08/09/17 15:00 84 18 76/50 100 08/09/17 14:00 96 18 119/54 100 08/09/17 13:00 97.8 F 89 18 104/68 99 Intake and Output 08/09/17 08/09/17 08/09/17 07:59 15:59 23:59 Intake Total 0 / 0 252.5 / 252.5 Output Total 0 / 0 100 / 100 Balance 0 / 0 252.5 / 252.5 -87 / -87 Intake: IV Fluids 252.5 / 252.5 PRECEDEX Premix 400 mcg In 100 / ml @ 0.2 MCG/KG/HR 3.73 mls/hr IVC .Q24H PRISCILLA Rx#:[id number] FentaNYL (PF) 1,000 MCG In 0.9 2.5 / 2.5 % Sodium Chloride 80 ML @ 50 MCG/HR 5 mls/hr IVC CONT PRISCILLA Rx #:[id number] KCl 40 MEQ Xylocaine 2 ML In 250 / 250 Dextrose 5% 500 ML @ 130.5 mls/ hr IVPB ONCE ONE Rx#:[id number] Oral 0 / 0 Output: Urine 0 / 0 Catheter 100 / 100 Other: # Voids 1 Weight 74.6 kg 80 kg Blood Glucose* 150 147 Patient Weight 08/09/17 23:59 Weight 80 kg - General Appearance General appearance: cachectic, sedated on ventilator, intubated EENT: ATNC, mucous membranes moist Neck: supple Respiratory: wheezing Cardiology: normal S1, normal S2 Gastrointestinal: normoactive bowel sounds, no tenderness Integumentary: no rash, warm and dry Additional Comments: Intubated/sedated Musculoskeletal: no erythema, no cyanosis, no clubbing Results - Lab Results 08/09/17 03:42 08/09/17 03:42 Most recent lab results ABG pH 7.53 pH Units (7.32-7.45) H D 08/09/17 14:31 ABG pCO2 54 mmHg (35-45) H D 08/09/17 14:31 ABG pO2 148 mmHg (85-104) H D 08/09/17 14:31 ABG HCO3 45 mEq/L (21-27) H 08/09/17 14:31 ABG O2 Saturation 100 % (95-98) H 08/09/17 14:31 Calcium 8.3 mg/dL (8.6-10.8) L 08/09/17 03:42 Phosphorus 3.2 mg/dL (2.3-4.7) 08/06/17 12:35 Magnesium 1.6 mg/dL (1.6-2.6) 08/07/17 03:13 Consult Discharge Plan - Plan Instructions: Heart Failure (DC), Acute Respiratory Distress Syndrome (DC), Anemia (GEN) Additional Instructions: 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
[2017-08-09] MEDS: Chlorhexidine Rinse 15 ML MOUTHWASH MM SCH (21:01)
[2017-08-09 22:29] LABS: ABG Base Excess 17 mEq/L (-2 to 3); ABG HCO3 42 mEq/L (21-27); ABG Oxygen Saturation 95 % (95-98); ABG PCO2 53 mmHg (35-45); ABG PH 7.51 pH Units (7.32-7.45); ABG PO2 70 mmHg (85-104); ABG TCO2 43 mEq/L (20-26); Blood Gas Modality PRVC; Blood Gas PEEP 5 cm H2O; Blood Gas Respiration Rate 18; Blood Gas VT 310 cc
[2017-08-09] MEDS ORDERED: Water for inj. (sterile) 10 ML IV ONE (22:55)
[2017-08-09] MEDS: Cefepime HCl 2,000 MG in Water for inj. (sterile) 20 ML IVP SCH (22:57)
[2017-08-09] MEDS ORDERED: Vancomycin 1,500 MG in D5% in Water 250 ML IVPB SCH (23:00)
[2017-08-09] MEDS ORDERED: Vancomycin 1,250 MG in D5% in Water 250 ML IVPB SCH (23:00)
[2017-08-10] MEDS: Lacri-Lube 3.5 GM TUBE BOTH EYES SCH ×4 (00:17→12:18)
[2017-08-10] MEDS: Dexmedetomidine HCl 400 MCG/100 ML MLS IVC SCH (00:18)
[2017-08-10 04:24] LABS: ABG Base Excess 18 mEq/L (-2 to 3); ABG HCO3 44 mEq/L (21-27); ABG Oxygen Saturation 91 % (95-98); ABG PCO2 64 mmHg (35-45); ABG PH 7.45 pH Units (7.32-7.45); ABG PO2 61 mmHg (85-104); ABG TCO2 46 mEq/L (20-26); Blood Gas Modality PRVC; Blood Gas PEEP 5 cm H2O; Blood Gas Respiration Rate 12; Blood Gas VT 310 cc
[2017-08-10 05:12] LABS: Basophils % 0.2 %; Eosinophils # 0.1 K/mcL (0.0-0.6); Hematocrit 25.2 % (35.3-44.9); Hemoglobin 7.4 g/dL (11.5-15.4); Immature Granulocytes % 0.9 % (0-4); Lymphocytes # 0.6 K/mcL (0.6-4.6); Lymphocytes % 13.6 %; Mean Corpuscular HGB Conc 29.4 g/dL (31.6-35.5); Mean Corpuscular Volume 85.1 fL (83.0-100.0); Mean Platelet Volume 9.5 fL (9.4-12.4); Monocytes # 0.4 K/mcL (0.0-1.3); Monocytes % 9.9 %; Neutrophils # 3.2 K/mcL (1.6-8.9); Platelet Count 168 K/mcL (140-400); Red Blood Count 2.96 M/mcL (3.82-4.97); Red Cell Distribution Width 19.2 % (11.5-14.5); Segmented Neutrophils % 72.4 %
[2017-08-10 05:13] LABS: Bilirubin,Urine Negative (Negative); Blood,Urine Negative (Negative); Clarity,Urine Cloudy (Clear); Color,Urine Yellow (Yellow); Glucose,Urine (UA) Normal (Normal); Ketones,Urine Negative (Negative); Leukocyte Esterase,Urine Trace (Negative); Nitrite,Urine Negative (Negative); Protein,Urine 30 mg/dL (Neg-Trace); Specific Gravity,Urine 1.014 (1.010-1.025); Urobilinogen,Urine Normal (Normal)
[2017-08-10 05:14] LABS: Bacteria,Urine None Seen per hpf (None-Few); Hyaline Casts,Urine Few per lpf (None-Few); Squamous Epithelial Cell,Urine Many per lpf (None-Few)
[2017-08-10 05:16] LABS: INR 2.1; Prothrombin Time 23.4 Seconds (9.4-12.1)
[2017-08-10 05:33] LABS: Calcium 8.2 mg/dL (8.6-10.8); Magnesium 1.4 mg/dL (1.6-2.6); Potassium 3.6 mEq/L (3.5-4.5)
[2017-08-10] MEDS: Chlorhexidine Rinse 15 ML MOUTHWASH MM SCH (08:08)
[2017-08-10] MEDS: aMILoride 5 MG TABLET PO SCH (08:09)
[2017-08-10] MEDS: Aspirin Enteric Coated 81 MG Tablet PO SCH (08:09)
[2017-08-10] MEDS: acetaZOLAMIDE 250 MG TABLET PO SCH ×3 (08:09→20:17)
[2017-08-10] MEDS: Cefepime HCl 2,000 MG in Water for inj. (sterile) 20 ML IVP SCH (08:10)
[2017-08-10] MEDS: Furosemide 40 MG/4 ML VIAL IVP SCH (08:29)
[2017-08-10 08:54] LABS: ABG Base Excess 19 mEq/L (-2 to 3); ABG HCO3 46 mEq/L (21-27); ABG Oxygen Saturation 92 % (95-98); ABG PCO2 68 mmHg (35-45); ABG PH 7.44 pH Units (7.32-7.45); ABG PO2 64 mmHg (85-104); ABG TCO2 48 mEq/L (20-26); Blood Gas Modality CPAP/PS; Blood Gas PEEP 5 cm H2O; Blood Gas Pressure Support 8 cm H2O
--- NOTE | 2017-08-10 09:00 | Event Note ---
Date of Encounter: 08/10/17 Time of Encounter: 09:00 Spoke with Patient amd her , patient was completely conscious and oriented told me after the tube comes out she doesnt want future reintubation and chest compression , she is ok with Non invasive ventilation so the code status was changed DNRA DNI
--- NOTE | 2017-08-10 11:23 | Pulmonology Progress Note ---
<Xenia Brennan - Last Filed: 08/10/17 11:20> Date of Encounter: 08/10/17 Time of Encounter: 11:21 Assessment and Plan (1) Anemia Current Visit: Yes Status: Chronic Slight drop from 8.6 yesterday to 7.4 today. No active signs of bleeding -continue to monitor -Fecal Occult blood -LDH, Haptoglobin -Discontinue warfarin until Hgb stabilizes Qualifiers: Anemia type: due to chronic kidney disease Chronic kidney disease stage: stage 3 (moderate) Qualified Code(s): N18.3 - Chronic kidney disease, stage 3 (moderate); D63.1 - Anemia in chronic kidney disease; D63.1 - Anemia in chronic kidney disease (2) Acute and chronic respiratory failure with hypercapnia Current Visit: Yes Status: Acute Patient became minimally responsive prior to transfer to ICU receiving 5 grams of narcan with decreased rate of breathing and pinpoint pupils. Patient with ataxic breathing typcial after opiod use. -Endotracheal intubation performed 08/09. ABG prior showed respiratory acidosis of 7.13, pCO2 of 142, and bicarb of 42, and pO2 of 91. ABG after showed ph 7.53 , PCO2 of 54, and bicarbonate of 45. -CXR 08/09-bibasilar volume loss with findings suggestive of CHF. -[facility] EPIV access -08/10- patient successfully extubated after CPAP/SBT trial this morning. -IV furosemide was started for fluid overload initially. Patient with metabolic alkalosis worsening from yesterday post hypercapnic metabolic alkalosis vs contraction alkalosis. -DC furosemide, add Diamox for diuresis. (3) Acute exacerbation of CHF (congestive heart failure) Current Visit: Yes Status: Acute Echocardiogram on 06-11-17 shows EF 65% with mild LVH, mild diastolic dysfunction , and mild pulmonary hypertension. Patient with obvious bilateral pulmonary edema and transudative effusion on cxr and pleural fluid analysis as well as crackles on PE. -Echo on 08/09 essentially unchanged with LVEF 60%, HFPEF -new ECG on 08-09-2017 with no ischemic changes compared to ECG on 08/06 and 10/2016. -Switch diuresis to diamox from lasix, -FU sputum culture Qualifiers: Congestive heart failure type: diastolic Qualified Code(s): I50.33 - Acute on chronic diastolic (congestive) heart failure (4) Acute encephalopathy Current Visit: Yes Status: Acute Patient with abrupt change in mental status 08/09. Opiod overdose vs CO2 narcosis vs intracranial bleed. -Patient on anti-coagulation- CT head negative for intracranial bleed. -Patient awake and alert this morning. Handled extubation well. -Resolved 08/10. (5) Pleural effusion Current Visit: No Status: Acute /p bilateral bilateral thoracentesis with transudative effusion. (6) Hx of pulmonary embolus Current Visit: No Status: Chronic INR therapeutic -DC warfarin until Hgb stabilizes. Subjective Principal diagnosis: Acute on chronic hypercapnic respiratory failure Interval history: Patient did well on CPAP/SBT this morning, handled extubation well. Resting comfortably. Initially requested to be DNR-CCA/DNI, however, she changed her mind and now desires to be Full Code. 2L NC, satting well. Objective PUL Vital signs: Last Vital Signs Temp 98.9 F 08/10/17 07:40 Pulse 73 08/10/17 10:00 Resp 20 08/10/17 10:00 BP 96/50 08/10/17 10:00 Pulse Ox 100 08/10/17 10:00 General appearance: no acute distress Eyes: nonicteric ENT: oropharynx moist Neck: supple Effort: normal Auscultation: bilateral: rales (bibasilar) Cardiovascular: regular rate and rhythm Gastrointestinal: normoactive bowel sounds, soft, non-tender, non-distended Integumentary: normal Extremities: edema (3+ bilateral LE) normal mental status, non-focal exam mood appropriate, affect normal Ventilator Settings Ventilator Settings: Ventilator Settings, Last 8 Hours Ventilator Mode CPAP Ventilator Mode CPAP Ventilator Mode CPAP Ventilator Mode CPAP Ventilator Mode A/C Ventilator Mode VC+ Ventilator Mode VC+ Ventilator Mode A/C Ventilator Mode A/C Ventilator Mode VC+ Ventilator Tidal Volume 310 Setting Ventilator Tidal Volume 310 Setting Ventilator Tidal Volume 310 Setting Ventilator Tidal Volume 310 Setting Ventilator Tidal Volume 310 Setting Ventilator Tidal Volume 310 Setting Ventilator Tidal Volume 310 Setting Ventilator Respiratory Rate 12 Setting Ventilator Respiratory Rate 12 Setting Ventilator Respiratory Rate 12 Setting Ventilator Respiratory Rate 12 Setting Ventilator Respiratory Rate 12 Setting Ventilator Respiratory Rate 12 Setting Actual Respiratory Rate 20 Actual Respiratory Rate 16 Actual Respiratory Rate 15 Actual Respiratory Rate 14 Actual Respiratory Rate 16 Actual Respiratory Rate 13 Positive End Expiratory 5 Pressure Positive End Expiratory 5 Pressure Positive End Expiratory 5 Pressure Positive End Expiratory 5 Pressure Positive End Expiratory 5 Pressure Positive End Expiratory 5 Pressure Positive End Expiratory 5 Pressure Positive End Expiratory 5 Pressure Positive End Expiratory 5 Pressure Peak Inspiratory Airway 13 Pressure Peak Inspiratory Airway 20 Pressure Peak Inspiratory Airway 20 Pressure Peak Inspiratory Airway 19 Pressure Peak Inspiratory Airway 26 Pressure Peak Inspiratory Airway 23 Pressure Results - Laboratory Findings CBC and BMP: 08/10/17 05:00 08/10/17 05:00 ABG ABG pH 7.44 pH Units (7.32-7.45) 08/10/17 08:50 ABG pCO2 68 mmHg (35-45) H 08/10/17 08:50 ABG pO2 64 mmHg (85-104) L 08/10/17 08:50 ABG O2 Saturation 92 % (95-98) L 08/10/17 08:50 PT/INR, D-dimer PT 23.4 Seconds (9.4-12.1) H 08/10/17 05:00 Abnormal lab findings: Abnormal lab results RBC 2.96 M/mcL (3.82-4.97) L 08/10/17 05:00 Hgb 7.4 g/dL (11.5-15.4) L 08/10/17 05:00 Hct 25.2 % (35.3-44.9) L 08/10/17 05:00 MCH 25.0 pg (28.0-33.3) L 08/10/17 05:00 MCHC 29.4 g/dL (31.6-35.5) L 08/10/17 05:00 RDW 19.2 % (11.5-14.5) H 08/10/17 05:00 PT 23.4 Seconds (9.4-12.1) H 08/10/17 05:00 ABG pCO2 68 mmHg (35-45) H 08/10/17 08:50 ABG pO2 64 mmHg (85-104) L 08/10/17 08:50 ABG HCO3 46 mEq/L (21-27) H 08/10/17 08:50 ABG Total CO2 48 mEq/L (20-26) H 08/10/17 08:50 ABG O2 Saturation 92 % (95-98) L 08/10/17 08:50 ABG Base Excess 19 mEq/L (-2 to 3) H 08/10/17 08:50 Chloride 91 mEq/L (98-109) L 08/10/17 05:00 Carbon Dioxide 41 mEq/L (19-29) H* 08/10/17 05:00 BUN 30 mg/dL (7-20) H 08/10/17 05:00 Creatinine 1.69 mg/dL (0.57-1.11) H 08/10/17 05:00 Est GFR ( Amer) 35 (> 60) L 08/10/17 05:00 Est GFR (Non-Af Amer) 29 (> 60) L 08/10/17 05:00 Glucose 105 mg/dL (70-99) H 08/10/17 05:00 POC Glucose 114 (58-89) H 08/09/17 17:27 Calcium 8.2 mg/dL (8.6-10.8) L 08/10/17 05:00 Magnesium 1.4 mg/dL (1.6-2.6) L 08/10/17 05:00 Urine Clarity Cloudy (Clear) A 08/10/17 05:00 Urine Protein 30 mg/dL (Neg-Trace) H 08/10/17 05:00 Ur Leukocyte Esterase Trace (Negative) H 08/10/17 05:00 Urine Microscopic RBC 5-15 per hpf (0-3) H 08/10/17 05:00 Urine Microscopic WBC 5-15 per hpf (0-3) H 08/10/17 05:00 Ur Squamous Epith Cells Many per lpf (None-Few) H 08/10/17 05:00 Ur Culture Indicated? YES (NO) A 08/06/17 15:01 Pleural Appearance Cloudy (Clear) A 08/06/17 14:22 - Microbiology Findings Microbiology Findings: Microbiology, Last 48 Hours 08/07/17 09:40 Body Fluid Culture - Preliminary Pleural Fluid 08/09/17 14:20 Sputum Culture - Preliminary Sputum - Clinical Findings Intake & Output: Intake & Output 08/09/17 08/10/17 08/10/17 23:59 07:59 15:59 Intake Total 43 / 43 396 / 396 Output Total 550 / 550 200 / 200 Balance -507 / -507 196 / 196 Weight 79.2 kg Consult Discharge Plan - Plan Instructions: Heart Failure (DC), Acute Respiratory Distress Syndrome (DC), Anemia (GEN) Additional Instructions: Follow up with your vet tech as scheduled Referrals: Robles Koch MD [Primary Care Provider] - (in 1-2 weeks) Prescriptions: aMILoride [Midamor] 2.5 mg PO DAILY #30 tablet <Esmer Yan - Last Filed: 08/11/17 00:24> Date of Encounter: 08/11/17 Objective PUL Vital signs: Last Vital Signs Temp 99.0 F 08/10/17 15:09 Pulse 86 08/10/17 18:00 Resp 22 08/10/17 18:00 BP 112/59 08/10/17 18:00 Pulse Ox 100 08/10/17 18:00 Results - Laboratory Findings CBC and BMP: 08/10/17 05:00 08/10/17 05:00 ABG ABG pH 7.44 pH Units (7.32-7.45) 08/10/17 08:50 ABG pCO2 68 mmHg (35-45) H 08/10/17 08:50 ABG pO2 64 mmHg (85-104) L 08/10/17 08:50 ABG O2 Saturation 92 % (95-98) L 08/10/17 08:50 PT/INR, D-dimer PT 23.4 Seconds (9.4-12.1) H 08/10/17 05:00 Abnormal lab findings: Abnormal lab results RBC 2.96 M/mcL (3.82-4.97) L 08/10/17 05:00 Hgb 7.4 g/dL (11.5-15.4) L 08/10/17 05:00 Hct 25.2 % (35.3-44.9) L 08/10/17 05:00 MCH 25.0 pg (28.0-33.3) L 08/10/17 05:00 MCHC 29.4 g/dL (31.6-35.5) L 08/10/17 05:00 RDW 19.2 % (11.5-14.5) H 08/10/17 05:00 PT 23.4 Seconds (9.4-12.1) H 08/10/17 05:00 ABG pCO2 68 mmHg (35-45) H 08/10/17 08:50 ABG pO2 64 mmHg (85-104) L 08/10/17 08:50 ABG HCO3 46 mEq/L (21-27) H 08/10/17 08:50 ABG Total CO2 48 mEq/L (20-26) H 08/10/17 08:50 ABG O2 Saturation 92 % (95-98) L 08/10/17 08:50 ABG Base Excess 19 mEq/L (-2 to 3) H 08/10/17 08:50 Chloride 91 mEq/L (98-109) L 08/10/17 05:00 Carbon Dioxide 41 mEq/L (19-29) H* 08/10/17 05:00 BUN 30 mg/dL (7-20) H 08/10/17 05:00 Creatinine 1.69 mg/dL (0.57-1.11) H 08/10/17 05:00 Est GFR ( Amer) 35 (> 60) L 08/10/17 05:00 Est GFR (Non-Af Amer) 29 (> 60) L 08/10/17 05:00 Glucose 105 mg/dL (70-99) H 08/10/17 05:00 POC Glucose 114 (58-89) H 08/09/17 17:27 Calcium 8.2 mg/dL (8.6-10.8) L 08/10/17 05:00 Magnesium 1.4 mg/dL (1.6-2.6) L 08/10/17 05:00 Urine Clarity Cloudy (Clear) A 08/10/17 05:00 Urine Protein 30 mg/dL (Neg-Trace) H 08/10/17 05:00 Ur Leukocyte Esterase Trace (Negative) H 08/10/17 05:00 Urine Microscopic RBC 5-15 per hpf (0-3) H 08/10/17 05:00 Urine Microscopic WBC 5-15 per hpf (0-3) H 08/10/17 05:00 Ur Squamous Epith Cells Many per lpf (None-Few) H 08/10/17 05:00 Ur Culture Indicated? YES (NO) A 08/06/17 15:01 Pleural Appearance Cloudy (Clear) A 08/06/17 14:22 - Microbiology Findings Microbiology Findings: Microbiology, Last 48 Hours 08/07/17 09:40 Body Fluid Culture - Preliminary Pleural Fluid 08/09/17 14:20 Sputum Culture - Preliminary Sputum - Clinical Findings Intake & Output: Intake & Output 08/10/17 08/10/17 08/10/17 07:59 15:59 23:59 Intake Total 396 / 396 Output Total 200 / 200 500 / 500 Balance 196 / 196 -499 / -499 Weight 79.2 kg - Attending Attestation I saw the patient with the resident agree with History and Physical exam findings. 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 Cardiac : HFPEF , diuresis as tolerated Nutrition/GI: After extubation advance diet as tolerated with fluid restriction .PPI prophylaxis Renal : PREM on Chronic kidney injury Nephrology following . Metabolic alkalosis will start Diamox will follow closely acid -base disturbance Heme onc : No acute issues ID : Fever with some increased sputum production to continue antibiotics. Musculo skeletal / skin issues : No acute issues Disposition : Critically ill Code status: Patient initially wanted to be DNR DNI but changed her mind to Full Code Family/POA: , Daughter.
--- NOTE | 2017-08-10 11:31 | Event Note ---
<Xenia Brennan H - Last Filed: 08/10/17 11:29> Date of Encounter: 08/10/17 Time of Encounter: 11:29 I was called back into the bedside by the patient, who stated she changed her mind, and now desires to be Full Code and is OK with intubation if the situation mandates the use of endotracheal intubation. We have changed her resusicitation status back to FULL CODE. Patient with AAOx3. Patient's family was in full agreement with her decision. <Esmer Yan S - Last Filed: 08/11/17 01:09> Date of Encounter: 08/11/17
--- NOTE | 2017-08-10 11:43 | Nephrology Progress Note ---
Date of Encounter: 08/10/17 - Assessment and Plan (1) Chronic kidney disease, stage III (moderate) Current Visit: Yes Status: Chronic PREM on CKD stage III with slightly worsened SCr. Given the elevated SCr, hypokalemia and metabolic acidosis, she most likely has a decreased intravascular volume today. Would hold diuretics for today. Hypokalemia, improved. Agree with amiloride. Metabolic aklalosis: Diamox is ideal. See my note from yesterday. Agree with ICU team. Continue to follow a renal protective strategy. Will follow with you. (2) Metabolic alkalosis with respiratory acidosis Current Visit: Yes Status: Acute (3) Lower extremity edema Current Visit: No Status: Acute (4) Acute and chronic respiratory failure with hypercapnia Current Visit: Yes Status: Acute (5) CHF (congestive heart failure) Current Visit: Yes Status: Acute Qualifiers: Qualified Code(s): I50.9 - Heart failure, unspecified Subjective Principal diagnosis: Acute on chronic hypercapnic respiratory failure Objective - Vital Signs Vital signs: Vital Signs Temp Pulse Resp BP Pulse Ox 08/10/17 11:37 98.2 F 08/10/17 11:00 74 16 94/51 99 08/10/17 10:00 73 20 96/50 100 08/10/17 09:02 27 08/10/17 09:00 77 20 101/56 95 08/10/17 08:36 22 95 08/10/17 08:00 75 20 102/56 95 08/10/17 07:46 72 08/10/17 07:40 98.9 F 08/10/17 07:00 74 22 103/61 94 08/10/17 06:00 69 16 86/45 95 08/10/17 05:30 15 93/46 96 08/10/17 05:00 71 14 93/48 96 08/10/17 04:21 99.2 F 08/10/17 04:00 74 16 88/54 96 08/10/17 03:23 13 85/39 95 08/10/17 03:00 73 12 79/47 92 08/10/17 02:00 74 14 90/64 94 08/10/17 01:25 13 82/43 94 08/10/17 01:00 77 12 82/43 96 08/10/17 00:08 99.9 F H 08/10/17 00:00 75 12 81/42 95 08/09/17 23:18 13 92/49 93 08/09/17 23:00 80 12 98/51 95 08/09/17 22:00 78 18 89/47 94 08/09/17 21:25 22 92/56 95 08/09/17 21:00 81 18 92/56 95 08/09/17 20:21 101 F H 08/09/17 20:00 86 18 92/54 93 08/09/17 19:35 18 88/52 94 08/09/17 19:00 86 18 88/52 94 08/09/17 18:00 87 18 86/55 95 08/09/17 17:00 96 18 78/49 98 08/09/17 16:11 99.2 F 08/09/17 15:53 86 08/09/17 15:36 18 103/65 98 08/09/17 15:00 84 18 76/50 100 08/09/17 14:00 96 18 119/54 100 08/09/17 13:00 97.8 F 89 18 104/68 99 Intake and Output 08/09/17 08/10/17 08/10/17 23:59 07:59 15:59 Intake Total 43 / 43 396 / 396 1 / 1 Output Total 550 / 550 200 / 200 200 / 200 Balance -507 / -507 196 / 196 -199 / -199 Intake: IV Fluids 43 / 43 396 / 396 1 / 1 Water for inj. (sterile) 10 ML / 10 As IV .STK-MED [facility] Rx#: [id number] PRECEDEX Premix 400 mcg In 100 / 98 / 98 1 / 1 ml @ 0.2 MCG/KG/HR 3.73 mls/hr IVC .Q24H [facility] Rx#:[id number] FentaNYL (PF) 1,000 MCG In 0.9 48 / 48 % Sodium Chloride 80 ML @ 50 MCG/HR 5 mls/hr IVC CONT [facility] Rx #:[id number] Maxipime 2,000 MG In Water for 20 / 20 inj. (sterile) 20 ML @ 300 mls/ hr IVP Q8HR [facility] Rx#:[id number] Vancocin 1,250 MG In Dextrose 5 250 / 250 % 250 ML @ 166.667 mls/hr IVPB Q24H [facility] Rx#:[id number] Output: Catheter 550 / 550 200 / 200 200 / 200 Other: Stool Size Large Stool Consistency loose Stool Color Black Weight 79.2 kg Blood Glucose* 147 Patient Weight 08/10/17 23:59 Weight 79.2 kg - Lab 08/10/17 05:00 08/10/17 05:00 Most recent lab results ABG pH 7.44 pH Units (7.32-7.45) 08/10/17 08:50 ABG pCO2 68 mmHg (35-45) H 08/10/17 08:50 ABG pO2 64 mmHg (85-104) L 08/10/17 08:50 ABG HCO3 46 mEq/L (21-27) H 08/10/17 08:50 ABG O2 Saturation 92 % (95-98) L 08/10/17 08:50 Calcium 8.2 mg/dL (8.6-10.8) L 08/10/17 05:00 Phosphorus 3.2 mg/dL (2.3-4.7) 08/06/17 12:35 Magnesium 1.4 mg/dL (1.6-2.6) L 08/10/17 05:00 Consult Discharge Plan - Plan Instructions: Heart Failure (DC), Acute Respiratory Distress Syndrome (DC), Anemia (GEN) Additional Instructions: Follow up with your beef grader as scheduled Referrals: Robles Koch MD [Primary Care Provider] - (in 1-2 weeks) Prescriptions: aMILoride [Midamor] 2.5 mg PO DAILY #30 tablet
[2017-08-10] MEDS ORDERED: *HR* Warfarin 2.5 MG TABLET PO SCH (14:43)
[2017-08-10] MEDS ORDERED: *HR* Warfarin 2.5 MG TABLET PO ONE (18:00)
[2017-08-10] MEDS: FentaNYL (PF) 1,000 MCG in 0.9 % Sodium Chloride 80 ML IVC SCH (20:11)
[2017-08-10] MEDS ORDERED: Vancomycin 1 EACH in EMPTY BAG 1 EACH IVPB SCH (23:00)
[2017-08-11 03:32] LABS: Basophils % 0.2 %; Eosinophils # 0.3 K/mcL (0.0-0.6); Eosinophils % 5.1 %; Hematocrit 25.6 % (35.3-44.9); Hemoglobin 7.9 g/dL (11.5-15.4); Immature Granulocytes % 0.8 % (0-4); Lymphocytes # 0.6 K/mcL (0.6-4.6); Lymphocytes % 10.3 %; Mean Corpuscular HGB Conc 30.9 g/dL (31.6-35.5); Mean Corpuscular Hemoglobin 26.2 pg (28.0-33.3); Mean Corpuscular Volume 84.8 fL (83.0-100.0); Mean Platelet Volume 9.2 fL (9.4-12.4); Monocytes # 0.5 K/mcL (0.0-1.3); Neutrophils # 4.5 K/mcL (1.6-8.9); Platelet Count 203 K/mcL (140-400); Red Blood Count 3.02 M/mcL (3.82-4.97); Red Cell Distribution Width 19.3 % (11.5-14.5); Segmented Neutrophils % 74.6 %
[2017-08-11 03:38] LABS: Prothrombin Time 21.4 Seconds (9.4-12.1)
[2017-08-11 03:43] LABS: Magnesium 1.5 mg/dL (1.6-2.6); Potassium 3.1 mEq/L (3.5-4.5)
[2017-08-11] MEDS ORDERED: Cefepime HCl 2,000 MG in Water for inj. (sterile) 20 ML IVP SCH (08:00)
[2017-08-11] MEDS: aMILoride 5 MG TABLET PO SCH (08:32)
[2017-08-11] MEDS: acetaZOLAMIDE 250 MG TABLET PO SCH ×3 (08:33→22:01)
[2017-08-11] MEDS: Aspirin Enteric Coated 81 MG Tablet PO SCH (08:33)
--- NOTE | 2017-08-11 10:22 | Pulmonology Progress Note ---
<Xenia Brennan - Last Filed: 08/11/17 10:19> Date of Encounter: 08/11/17 Time of Encounter: 10:19 Assessment and Plan (1) Anemia Current Visit: Yes Status: Chronic Hgb stable. No active signs of bleeding -continue to monitor -LDH normal, -FU haptoglobin and fecal occult blood -Hgb Stable, will resume warfarin Qualifiers: Anemia type: due to chronic kidney disease Chronic kidney disease stage: stage 3 (moderate) Qualified Code(s): N18.3 - Chronic kidney disease, stage 3 (moderate); D63.1 - Anemia in chronic kidney disease; D63.1 - Anemia in chronic kidney disease (2) Acute and chronic respiratory failure with hypercapnia Current Visit: Yes Status: Acute Patient became minimally responsive prior to transfer to ICU on 08/09 receiving 5 grams of narcan with decreased rate of breathing and pinpoint pupils. Patient with ataxic breathing typical after opiod use. -Endotracheal intubation performed 08/09. ABG prior showed respiratory acidosis of 7.13, pCO2 of 142, and bicarb of 42, and pO2 of 91. ABG after showed ph 7.53 , PCO2 of 54, and bicarbonate of 45. -CXR 08/09-bibasilar volume loss with findings suggestive of CHF. -[facility] EPIV access -08/10- patient successfully extubated after CPAP/SBT trial this morning. -IV furosemide was started for fluid overload initially. Patient with metabolic alkalosis worsening from yesterday post hypercapnic metabolic alkalosis vs contraction alkalosis. -DC furosemide, add Diamox for diuresis -08/11- continue diamox for diuresis until alkalosis resolves -Follow nephrology recommendations - Transfer to [facility] . (3) Acute exacerbation of CHF (congestive heart failure) Current Visit: Yes Status: Acute Echocardiogram on 06-11-17 shows EF 65% with mild LVH, mild diastolic dysfunction , and mild pulmonary hypertension. Patient with obvious bilateral pulmonary edema and transudative effusion on cxr and pleural fluid analysis as well as crackles on PE. -Echo on 08/09 essentially unchanged with LVEF 60%, HFPEF -new ECG on 08-09-2017 with no ischemic changes compared to ECG on 08/06 and 10/2016. -Switch diuresis to diamox from lasix on 08/10 -Sputum culture preliminarly with gram negative diplococci- will DC vancomycin to decrease renally toxic substances. Qualifiers: Congestive heart failure type: diastolic Qualified Code(s): I50.33 - Acute on chronic diastolic (congestive) heart failure (4) Acute encephalopathy Current Visit: Yes Status: Acute Patient with abrupt change in mental status 08/09. Opiod overdose vs CO2 narcosis vs intracranial bleed. -Patient on anti-coagulation- CT head negative for intracranial bleed. -Patient awake and alert this morning. Handled extubation well. -Resolved 08/10. (5) Pleural effusion Current Visit: No Status: Acute /p bilateral bilateral thoracentesis with transudative effusion. (6) Hx of pulmonary embolus Current Visit: No Status: Chronic INR therapeutic -Hgb stable, restart home warfarin dose. Subjective Principal diagnosis: Acute on chronic hypercapnic respiratory failure Interval history: Ms. Quintero did well overnight. She is breathing well with no SOB, no pressors. Her vitals are stable. She wishes to go home. Objective PUL Vital signs: Last Vital Signs Temp 97.5 F L 08/11/17 07:48 Pulse 75 08/11/17 10:00 Resp 22 08/11/17 10:00 BP 120/62 08/11/17 10:00 Pulse Ox 100 08/11/17 10:00 General appearance: no acute distress Eyes: nonicteric ENT: oropharynx dry Neck: supple Effort: normal Auscultation: left: diminished breath sounds (basilar), right: rales (basilar) Cardiovascular: regular rate and rhythm Gastrointestinal: normoactive bowel sounds, soft, non-tender, non-distended Integumentary: normal Extremities: edema (3+) Musculoskeletal: no deformities normal mental status, non-focal exam mood appropriate, affect normal Results - Laboratory Findings CBC and BMP: 08/11/17 03:25 08/11/17 03:25 ABG ABG pH 7.44 pH Units (7.32-7.45) 08/10/17 08:50 ABG pCO2 68 mmHg (35-45) H 08/10/17 08:50 ABG pO2 64 mmHg (85-104) L 08/10/17 08:50 ABG O2 Saturation 92 % (95-98) L 08/10/17 08:50 PT/INR, D-dimer PT 21.4 Seconds (9.4-12.1) H 08/11/17 03:25 Abnormal lab findings: Abnormal lab results RBC 3.02 M/mcL (3.82-4.97) L 08/11/17 03:25 Hgb 7.9 g/dL (11.5-15.4) L 08/11/17 03:25 Hct 25.6 % (35.3-44.9) L 08/11/17 03:25 MCH 26.2 pg (28.0-33.3) L 08/11/17 03:25 MCHC 30.9 g/dL (31.6-35.5) L 08/11/17 03:25 RDW 19.3 % (11.5-14.5) H 08/11/17 03:25 MPV 9.2 fL (9.4-12.4) L 08/11/17 03:25 PT 21.4 Seconds (9.4-12.1) H 08/11/17 03:25 ABG pCO2 68 mmHg (35-45) H 08/10/17 08:50 ABG pO2 64 mmHg (85-104) L 08/10/17 08:50 ABG HCO3 46 mEq/L (21-27) H 08/10/17 08:50 ABG Total CO2 48 mEq/L (20-26) H 08/10/17 08:50 ABG O2 Saturation 92 % (95-98) L 08/10/17 08:50 ABG Base Excess 19 mEq/L (-2 to 3) H 08/10/17 08:50 Potassium 3.1 mEq/L (3.5-4.5) L 08/11/17 03:25 Chloride 91 mEq/L (98-109) L 08/11/17 03:25 Carbon Dioxide 41 mEq/L (19-29) H* 08/11/17 03:25 BUN 32 mg/dL (7-20) H 08/11/17 03:25 Creatinine 1.54 mg/dL (0.57-1.11) H 08/11/17 03:25 Est GFR ( Amer) 39 (> 60) L 08/11/17 03:25 Est GFR (Non-Af Amer) 32 (> 60) L 08/11/17 03:25 Glucose 107 mg/dL (70-99) H 08/11/17 03:25 POC Glucose 114 (58-89) H 08/09/17 17:27 Calcium 8.0 mg/dL (8.6-10.8) L 08/11/17 03:25 Magnesium 1.5 mg/dL (1.6-2.6) L 08/11/17 03:25 Urine Clarity Cloudy (Clear) A 08/10/17 05:00 Urine Protein 30 mg/dL (Neg-Trace) H 08/10/17 05:00 Ur Leukocyte Esterase Trace (Negative) H 08/10/17 05:00 Urine Microscopic RBC 5-15 per hpf (0-3) H 08/10/17 05:00 Urine Microscopic WBC 5-15 per hpf (0-3) H 08/10/17 05:00 Ur Squamous Epith Cells Many per lpf (None-Few) H 08/10/17 05:00 Ur Culture Indicated? YES (NO) A 08/06/17 15:01 Pleural Appearance Cloudy (Clear) A 08/06/17 14:22 Vancomycin Trough 20.9 mcg/mL (10-20) H* 08/10/17 22:05 - Microbiology Findings Microbiology Findings: Microbiology, Last 48 Hours 08/07/17 09:40 Body Fluid Culture - Preliminary Pleural Fluid 08/09/17 14:20 Sputum Culture - Preliminary Sputum - Clinical Findings Intake & Output: Intake & Output 08/10/17 08/11/17 08/11/17 23:59 07:59 15:59 Intake Total 0 / 0 240 / 240 Output Total 250 / 250 700 / 700 Balance -250 / -250 -700 / -700 240 / 240 Weight 80.2 kg Consult Discharge Plan - Plan Instructions: Heart Failure (DC), Acute Respiratory Distress Syndrome (DC), Anemia (GEN) Additional Instructions: Follow up with your drapery seamstress as scheduled Referrals: Robles Koch MD [Primary Care Provider] - (in 1-2 weeks) Prescriptions: aMILoride [Midamor] 2.5 mg PO DAILY #30 tablet <Esmer Yan S - Last Filed: 08/11/17 19:08> Date of Encounter: 08/11/17 Objective PUL Vital signs: Last Vital Signs Temp 98.0 F 08/11/17 14:42 Pulse 74 08/11/17 14:42 Resp 15 08/11/17 14:42 BP 114/66 08/11/17 14:42 Pulse Ox 100 08/11/17 14:42 Results - Laboratory Findings CBC and BMP: 08/11/17 03:25 08/11/17 03:25 ABG ABG pH 7.44 pH Units (7.32-7.45) 08/10/17 08:50 ABG pCO2 68 mmHg (35-45) H 08/10/17 08:50 ABG pO2 64 mmHg (85-104) L 08/10/17 08:50 ABG O2 Saturation 92 % (95-98) L 08/10/17 08:50 PT/INR, D-dimer PT 21.4 Seconds (9.4-12.1) H 08/11/17 03:25 Abnormal lab findings: Abnormal lab results RBC 3.02 M/mcL (3.82-4.97) L 08/11/17 03:25 Hgb 7.9 g/dL (11.5-15.4) L 08/11/17 03:25 Hct 25.6 % (35.3-44.9) L 08/11/17 03:25 MCH 26.2 pg (28.0-33.3) L 08/11/17 03:25 MCHC 30.9 g/dL (31.6-35.5) L 08/11/17 03:25 RDW 19.3 % (11.5-14.5) H 08/11/17 03:25 MPV 9.2 fL (9.4-12.4) L 08/11/17 03:25 PT 21.4 Seconds (9.4-12.1) H 08/11/17 03:25 ABG pCO2 68 mmHg (35-45) H 08/10/17 08:50 ABG pO2 64 mmHg (85-104) L 08/10/17 08:50 ABG HCO3 46 mEq/L (21-27) H 08/10/17 08:50 ABG Total CO2 48 mEq/L (20-26) H 08/10/17 08:50 ABG O2 Saturation 92 % (95-98) L 08/10/17 08:50 ABG Base Excess 19 mEq/L (-2 to 3) H 08/10/17 08:50 Potassium 3.1 mEq/L (3.5-4.5) L 08/11/17 03:25 Chloride 91 mEq/L (98-109) L 08/11/17 03:25 Carbon Dioxide 41 mEq/L (19-29) H* 08/11/17 03:25 BUN 32 mg/dL (7-20) H 08/11/17 03:25 Creatinine 1.54 mg/dL (0.57-1.11) H 08/11/17 03:25 Est GFR ( Amer) 39 (> 60) L 08/11/17 03:25 Est GFR (Non-Af Amer) 32 (> 60) L 08/11/17 03:25 Glucose 107 mg/dL (70-99) H 08/11/17 03:25 POC Glucose 114 (58-89) H 08/09/17 17:27 Calcium 8.0 mg/dL (8.6-10.8) L 08/11/17 03:25 Magnesium 1.5 mg/dL (1.6-2.6) L 08/11/17 03:25 Urine Clarity Cloudy (Clear) A 08/10/17 05:00 Urine Protein 30 mg/dL (Neg-Trace) H 08/10/17 05:00 Ur Leukocyte Esterase Trace (Negative) H 08/10/17 05:00 Urine Microscopic RBC 5-15 per hpf (0-3) H 08/10/17 05:00 Urine Microscopic WBC 5-15 per hpf (0-3) H 08/10/17 05:00 Ur Squamous Epith Cells Many per lpf (None-Few) H 08/10/17 05:00 Ur Culture Indicated? YES (NO) A 08/06/17 15:01 Pleural Appearance Cloudy (Clear) A 08/06/17 14:22 Vancomycin Trough 20.9 mcg/mL (10-20) H* 08/10/17 22:05 - Microbiology Findings Microbiology Findings: Microbiology, Last 48 Hours 08/07/17 09:40 Body Fluid Culture - Preliminary Pleural Fluid 08/09/17 14:20 Sputum Culture - Preliminary Sputum - Clinical Findings Intake & Output: Intake & Output 08/11/17 08/11/17 08/11/17 07:59 15:59 23:59 Intake Total 0 / 0 240 / 240 240 / 240 Output Total 700 / 700 600 / 600 Balance -700 / -700 -360 / -360 240 / 240 Weight 80.2 kg 79.5 kg - Attending Attestation I saw the patient with the resident agree with History and Physical exam findings. Labs and Radiology were reviewed Did well overnight on NC ACCOUNTING COORDINATOR: Patient is conscious oriented x 3 NECK : No JVD appreciated Pulmonary : Patient has hypoxic respiratory failure on NC will continue diuresis as tolerated . Will benefit from BIPAP qualification now she is nearing euvolemia Cardiac : HFPEF , diuresis as tolerated Nutrition/GI: Cardiac diet as tolerated with fluid restriction .PPI prophylaxis Renal : PREM on Chronic kidney injury Nephrology following . Metabolic alkalosis to continue diamox will follow Nephrology recs when to start on Loop diuretics Heme onc : No acute issues ID : To start deescalating antibiotics Musculo skeletal / skin issues : No acute issues Disposition :Stable transfer to the floor . Code status: Patient initially wanted to be DNR DNI but changed her mind to Full Code Family/POA: , Daughter.
[2017-08-11] MEDS ORDERED: Albuterol 2.5 MG/3 ML NEBULIZER IH PRN (10:57)
[2017-08-11] MEDS ORDERED: Ondansetron 4 MG/2 ML VIAL IVP PRN (10:57)
[2017-08-11] MEDS ORDERED: Naloxone 0.4 MG/ML INJ IVP PRN (10:57)
[2017-08-11] MEDS ORDERED: *HR* Warfarin 2.5 MG TABLET PO ONE ×2 (10:57→18:00)
--- NOTE | 2017-08-11 12:24 | Nephrology Progress Note ---
Date of Encounter: 08/11/17 Time of Encounter: 11:30 - Assessment and Plan (1) Chronic kidney disease, stage III (moderate) Current Visit: Yes Status: Chronic PREM on CKD III. Trending better. Holding diuretics as has some features of a contraction alkalosis suggesting a decreased effective arterial blood volume; however, before discharge she will likely need to remain on a diuretic to keep her from redeveloping edema as an outpatient. Hypokalemia: s/p KCl 40mEq x1 this AM, but I recommend rechecking serum K+ this afternoon to make sure that she is correcting sufficiently. Metabolic alkalosis: agree with the carbonic anydrase inhibitor for the next few days. Acute on chronic hypercapneic respiratory failure: now extubated. Discussed with the ICU team. Agree with transfer out to the floor. She asked me about opioids and pain meds: I'll defer to primary team but in general, I counseled her to avoid NSAIDs. PREM on CKD stage III with slightly worsened SCr. Given the elevated SCr, hypokalemia and metabolic acidosis, she most likely has a decreased intravascular volume today. Would hold diuretics for today. Hypokalemia, improved. Agree with amiloride. Metabolic aklalosis: Diamox is ideal. See my note from yesterday. Agree with ICU team. Continue to follow a renal protective strategy. Will follow with you. (2) Metabolic alkalosis with respiratory acidosis Current Visit: Yes Status: Acute (3) Lower extremity edema Current Visit: No Status: Acute (4) Acute and chronic respiratory failure with hypercapnia Current Visit: Yes Status: Acute (5) CHF (congestive heart failure) Current Visit: Yes Status: Acute Qualifiers: Qualified Code(s): I50.9 - Heart failure, unspecified Subjective Principal diagnosis: Acute on chronic hypercapnic respiratory failure Interval history: Pt was s/e and now extubated. She reported feeling comfortable. Her was at the bedside (he said that he has many chronic medical problems). He did not affirm N/V/D. She feels as though her feet swelling may be improving. Objective - Vital Signs Vital signs: Vital Signs Temp Pulse Resp BP Pulse Ox 08/11/17 10:00 75 22 120/62 100 08/11/17 09:30 80 20 109/64 100 08/11/17 08:30 75 20 98/52 100 08/11/17 07:48 97.5 F L 08/11/17 07:00 72 18 106/49 99 08/11/17 06:00 69 20 114/55 100 08/11/17 05:04 97.5 F L 08/11/17 05:00 79 20 99/55 99 08/11/17 04:00 71 22 105/56 99 08/11/17 03:00 78 22 107/54 98 08/11/17 02:00 79 20 107/53 97 08/11/17 01:00 69 24 108/53 98 08/11/17 00:17 98.3 F 08/11/17 00:00 75 26 112/58 98 08/10/17 23:00 79 22 99/50 98 08/10/17 22:00 82 24 105/58 96 08/10/17 21:00 76 22 110/54 99 08/10/17 20:10 98.3 F 08/10/17 20:00 79 24 118/51 99 08/10/17 19:00 80 22 110/55 100 08/10/17 18:00 86 22 112/59 100 08/10/17 17:00 79 18 125/59 99 08/10/17 16:00 81 20 116/55 100 08/10/17 15:09 99.0 F 08/10/17 15:00 75 18 116/63 100 08/10/17 14:00 80 18 110/49 97 08/10/17 13:00 80 16 103/50 100 Intake and Output 08/10/17 08/11/17 08/11/17 23:59 07:59 15:59 Intake Total 0 / 0 240 / 240 Output Total 250 / 250 700 / 700 Balance -250 / -250 -700 / -700 240 / 240 Intake: IV Fluids 0 / 0 FentaNYL (PF) 1,000 MCG In 0.9 0 / 0 % Sodium Chloride 80 ML @ 50 MCG/HR 5 mls/hr IVC CONT PRISCILLA Rx #:[id number] Oral 240 / 240 Output: Catheter 250 / 250 700 / 700 Other: Meal Breakfast Percent of Meal Consumed 35% Weight 80.2 kg Patient Weight 08/11/17 23:59 Weight 80.2 kg - Lab 08/11/17 03:25 08/11/17 03:25 Most recent lab results ABG pH 7.44 pH Units (7.32-7.45) 08/10/17 08:50 ABG pCO2 68 mmHg (35-45) H 08/10/17 08:50 ABG pO2 64 mmHg (85-104) L 08/10/17 08:50 ABG HCO3 46 mEq/L (21-27) H 08/10/17 08:50 ABG O2 Saturation 92 % (95-98) L 08/10/17 08:50 Calcium 8.0 mg/dL (8.6-10.8) L 08/11/17 03:25 Phosphorus 3.2 mg/dL (2.3-4.7) 08/06/17 12:35 Magnesium 1.5 mg/dL (1.6-2.6) L 08/11/17 03:25 Consult Discharge Plan - Plan Instructions: Heart Failure (DC), Acute Respiratory Distress Syndrome (DC), Anemia (GEN) Additional Instructions: Follow up with your procurement manager as scheduled Referrals: Robles Koch MD [Primary Care Provider] - (in 1-2 weeks) Prescriptions: aMILoride [Midamor] 2.5 mg PO DAILY #30 tablet
[2017-08-12 03:38] LABS: INR 1.6
[2017-08-12 03:42] LABS: Basophils % 0.4 %; Eosinophils # 0.3 K/mcL (0.0-0.6); Eosinophils % 6.2 %; Hematocrit 27.1 % (35.3-44.9); Hemoglobin 8.2 g/dL (11.5-15.4); Immature Granulocytes % 1.7 % (0-4); Lymphocytes # 0.6 K/mcL (0.6-4.6); Lymphocytes % 11.2 %; Mean Corpuscular HGB Conc 30.3 g/dL (31.6-35.5); Mean Corpuscular Hemoglobin 25.6 pg (28.0-33.3); Mean Corpuscular Volume 84.7 fL (83.0-100.0); Mean Platelet Volume 9.5 fL (9.4-12.4); Monocytes # 0.5 K/mcL (0.0-1.3); Neutrophils # 3.8 K/mcL (1.6-8.9); Nucleated Red Blood Cells 0.6 /100 WBC (0); Platelet Count 228 K/mcL (140-400); Red Cell Distribution Width 18.7 % (11.5-14.5); Segmented Neutrophils % 71.5 %
[2017-08-12 03:46] LABS: BUN/Creatinine Ratio 27 (6-26); Blood Urea Nitrogen 29 mg/dL (7-20); Calcium 8.3 mg/dL (8.6-10.8); Carbon Dioxide 39 mEq/L (19-29); Chloride 92 mEq/L (98-109); Glucose 104 mg/dL (70-99); Magnesium 1.7 mg/dL (1.6-2.6); Osmolality,Calculated 292 (280-300); Potassium 3.6 mEq/L (3.5-4.5); Sodium 138 mEq/L (136-145); eGFR For African Americans > 60 (> 60); eGFR For Non-African Americans 50 (> 60)
[2017-08-12 07:00] VITALS: BP 117/63
[2017-08-12] MEDS ORDERED: Cefepime HCl 2,000 MG in Water for inj. (sterile) 20 ML IVP SCH (08:00)
[2017-08-12] MEDS: acetaZOLAMIDE 250 MG TABLET PO SCH (08:25)
[2017-08-12] MEDS ORDERED: Aspirin Enteric Coated 81 MG Tablet PO SCH (09:00)
[2017-08-12] MEDS ORDERED: aMILoride 5 MG TABLET PO SCH (09:00)
--- NOTE | 2017-08-12 12:27 | Discharge Summary ---
Date of Encounter: 08/12/17 Time of Encounter: 12:25 - Discharge Diagnosis (1) Acute and chronic respiratory failure Priority: Primary Status: Acute Qualifiers: Respiratory failure complication: hypercapnia Qualified Code(s): J96.22 - Acute and chronic respiratory failure with hypercapnia (2) Acute exacerbation of CHF (congestive heart failure) Priority: Secondary Status: Acute Qualifiers: Congestive heart failure type: diastolic Qualified Code(s): I50.33 - Acute on chronic diastolic (congestive) heart failure (3) HCAP (healthcare-associated pneumonia) Priority: Secondary Status: Acute (4) Anemia Priority: Secondary Status: Chronic Qualifiers: Anemia type: due to chronic kidney disease Chronic kidney disease stage: stage 3 (moderate) Qualified Code(s): N18.3 - Chronic kidney disease, stage 3 (moderate); D63.1 - Anemia in chronic kidney disease; D63.1 - Anemia in chronic kidney disease (5) Bilateral pleural effusion Priority: Secondary Status: Acute (6) Chronic kidney disease, stage III (moderate) Priority: Secondary Status: Chronic (7) HTN (hypertension) Priority: Secondary Status: Chronic Qualifiers: Hypertension type: essential hypertension Qualified Code(s): I10 - Essential (primary) hypertension (8) Hx of deep venous thrombosis Priority: Secondary Status: Acute (9) Hx of pulmonary embolus Priority: Secondary Status: Chronic (10) Decubitus ulcer of coccygeal region, stage 2 Priority: Secondary Status: Chronic - Discharge Medications Prescriptions: aMILoride [Midamor] 2.5 mg PO DAILY #30 tablet levoFLOXacin [Levaquin] 750 mg PO Q48H #3 tablet metroNIDAZOLE [Flagyl] 500 mg PO TID #15 tablet Home Medications: Albuterol Neb [Proventil Neb] 2.5 mg IH Q4-6H PRN 06/10/17 [History] Albuterol Sulfate [Proair Hfa] 2 puff IH Q6H PRN 06/10/17 [History] Carvedilol [Coreg] 6.25 mg PO BID 06/10/17 [History] Aspirin Enteric Coated [Aspirin EC] 81 mg PO DAILY #30 tablet. 06/12/17 [Rx] Furosemide [Lasix] 40 mg PO BID 06/21/17 [History] Potassium Chloride [Klor-Con 10] 10 meq PO DAILY 06/21/17 [History] Warfarin [Coumadin] 2.5 mg PO SUMOWETHSA 06/21/17 [History] Warfarin [Coumadin] 5 mg PO TUFR 06/21/17 [History] Ferrous Sulfate 325 mg PO BIDWM #60 tablet 07/21/17 [Rx] aMILoride [Midamor] 2.5 mg PO DAILY #30 tablet 08/09/17 [Rx] levoFLOXacin [Levaquin] 750 mg PO Q48H #3 tablet 08/12/17 [Rx] metroNIDAZOLE [Flagyl] 500 mg PO TID #15 tablet 08/12/17 [Rx] Allergies/Adverse Reactions: 3 Allergy/AdvReac Type Severity Reaction Status Date / Time No Known Allergies Allergy Verified 07/16/17 11:56 Procedures/tests Complete & Pending: Procedures Performed prior 72 hours Category Date Time Status CT head/brain wo con [CT] Routine Cat Scan 08/09/17 16:30 Completed Retroperitoneal Ultrasound - Complete [US Exams 08/10/17 13:30 Completed retroperitoneal comp] [US] Routine ECG 12 lead ECG [ECG] Routine Y 08/09/17 15:05 Completed EKG [ECG 12 lead ECG] [ECG] Stat Y 08/09/17 14:26 Completed EV limited echocardiogram Routine Y 08/09/17 14:20 Completed - Notes to Outpatient Provider Recommend sleep study as outpatient. Date of admission: 08/07/17 08:03 Primary care physician: Robles Koch MD Consults: 08/09/17 10:51 Consult to Nephrology [CONS] Routine Consulting Provider: Kidney Eneida/ALEIDA/JALEN/KIMMY Reason for Consult: Contraction/ metabolic alkalosis/ CKD Time Notified: 10:52 Call Completed: Yes 08/09/17 14:52 Consult to Pulmonology [CONS] Routine Consulting Provider: [facility] [place] Reason for Consult: Hypercarbic Resp failure Time Notified: 11:00 Call Completed: Yes 08/09/17 14:59 PICC Consult [Consult to Invasive Line Access Team] [CONS] Routine Reason for Consult: Limited vascular access Line Type: EPIV PICC line indications: Limited vascular access Discharging clinician: Marysol Huff Anticipated date of discharge: 08/12/17 - Patient Status Disposition: Home Health Service Condition: Good Functional capacity at discharge: independent ambulation Overall status at discharge: patient is progressing back to baseline - Ambulatory Orders Ambulatory Orders: Basic Metabolic Panel [CHEM] Time Frame: 2 Days, Facility: [facility], Location: Lab Prothrombin Time INR [COAG] Time Frame: 2 Days, Facility: [facility], Location: Lab - Discharge Instructions Instructions: Metronidazole (By mouth), Levofloxacin (By mouth), Amiloride (By mouth), Heart Failure (DC), Acute Respiratory Distress Syndrome (DC), Anemia ( GEN), Pneumonia (DC) Follow Up With: Robles Koch MD [Primary Care Provider] - 08/16/17 9:45 am (in 1-2 weeks) Bernard Ac DO [Partnered Physician] - 09/13/17 3:10 pm Additional Instructions: Follow up with your tank storage supervisor as scheduled. We have electronicly sent all prescriptions to [facility] pharmacy. Please get your blood drawn in two days at the out patient lab that you normally go to. - Diet and Activity Activity: increase activity as tolerated, wear oxygen at all times Diet: low fat, low cholesterol, low salt diet, other (Fluid restriction to 1.5 L per day) Hospital course: Ms. Quintero is a 77 year old female patient with history of DVT, PE, hypertension and CHF with bilateral pleural effusions who was admitted here for acute CHF and possible HCAP. She was started on treatment with lasix and IV antibiotics. She also underwent right and left sided thoracentesis. Her symptoms improved. Antibiotics were stopped after pneumonia was ruled out. Patient had an episode of narcotic induced CO2 narcosis and respiratory failure after she received oral morphine for pain. She responded to narcan initially but her pCO2 continued to climb and so she was intubated in the ICU. She recovered quickly and was extubated the next day. She did develop sputum production and fever and so was started on antibiotics. She is now doing much better and is back to her baseline. She has been recommended nocturnal BiPAP study here but she does not wish to stay another day for that and wishes to go home. She has been saturating well on 2L NC even when sleeping. As such, she is stable to be discharged home at this time. She will complete short course of antibiotics for possible aspiration. Patient does have chronic metabolic/ contraction alkalosis due to chronic resp acidosis and chronic lasix use. Nephrology was consulted and per their recommendations, she received diamox. She was also placed on amiloride and her lasix dosage was decreased. She responded well to this treatment. At this time, nephrology recommends stopping diamox and continuing lasix at her usual dose along with amiloride. She will follow up with nephrology as outpatient. - Time Spent with Patient Total time spent providing and/or coordinating discharge services: Greater than 30 minutes (45 min) - Constitutional Vitals: Temp Pulse Resp BP Pulse Ox 97.6 F 70 17 117/63 97 08/12/17 06:58 08/12/17 06:58 08/12/17 06:58 08/12/17 06:58 08/12/17 06:58 General appearance: Present: cooperative, A&O X 3, answers questions appropriately - Respiratory Respiratory exam: Present: decreased breath sounds (at bases), prolonged expiratory phase. Absent: accessory muscle use, rales, rhonchi, wheezes Additional comments: basal crackles - Cardiovascular Cardiovascular exam: Present: RRR, +S1, +S2. Absent: diastolic murmur, gallop, rubs, systolic murmur - GI/Abdominal GI/Abdominal exam: Present: normal bowel sounds, soft, no peritoneal signs. Absent: distended, tenderness - Extremities Exam Extremities exam: Present: pedal edema (mild bilateral), warm, radial pulses palpable and symmetrical. Absent: calf tenderness, cyanotic
--- NOTE | 2017-08-12 12:44 | Physician Discharge Referral ---
Home Health/Hosp Referral Info Transfer to: Home Health Provider in Charge Post Discharge: PCP - Diagnosis (1) Acute and chronic respiratory failure Priority: Primary Status: Acute (2) Acute exacerbation of CHF (congestive heart failure) Priority: Secondary Status: Acute (3) HCAP (healthcare-associated pneumonia) Priority: Secondary Status: Acute (4) Anemia Priority: Secondary Status: Chronic (5) Bilateral pleural effusion Priority: Secondary Status: Acute (6) Chronic kidney disease, stage III (moderate) Priority: Secondary Status: Chronic (7) HTN (hypertension) Priority: Secondary Status: Chronic (8) Hx of deep venous thrombosis Priority: Secondary Status: Acute (9) Hx of pulmonary embolus Priority: Secondary Status: Chronic (10) Decubitus ulcer of coccygeal region, stage 2 Priority: Secondary Status: Chronic - Respiratory Orders Oxygen / L per min (2) Smoking Cessation: Smoking cessation has been advised. For more information, call the [place] [employer] Quit Line at [phone]-NOW. - Diet/Nutrition Diet/Nutrition Orders: Renal, Cardiac Diet/Nutrition: List: Fluid restriction to 1.5 L per 24 hours - Activity Activity Orders: Walker - Services Needed Following services are medically necessary services: Nursing, Home Health Aide, Physical Therapy, Occupational Therapy Home Care Orders: Basic panel, PT/INR on 08/14/17 and as needed per PCP - Transfer Medications Prescriptions: aMILoride [Midamor] 2.5 mg PO DAILY #30 tablet levoFLOXacin [Levaquin] 750 mg PO Q48H #3 tablet metroNIDAZOLE [Flagyl] 500 mg PO TID #15 tablet Home Medications: Albuterol Neb [Proventil Neb] 2.5 mg IH Q4-6H PRN 06/10/17 [History] Albuterol Sulfate [Proair Hfa] 2 puff IH Q6H PRN 06/10/17 [History] Carvedilol [Coreg] 6.25 mg PO BID 06/10/17 [History] Aspirin Enteric Coated [Aspirin EC] 81 mg PO DAILY #30 tablet. 06/12/17 [Rx] Furosemide [Lasix] 40 mg PO BID 06/21/17 [History] Potassium Chloride [Klor-Con 10] 10 meq PO DAILY 06/21/17 [History] Warfarin [Coumadin] 2.5 mg PO SUMOWETHSA 06/21/17 [History] Warfarin [Coumadin] 5 mg PO TUFR 06/21/17 [History] Ferrous Sulfate 325 mg PO BIDWM #60 tablet 07/21/17 [Rx] aMILoride [Midamor] 2.5 mg PO DAILY #30 tablet 08/09/17 [Rx] levoFLOXacin [Levaquin] 750 mg PO Q48H #3 tablet 08/12/17 [Rx] metroNIDAZOLE [Flagyl] 500 mg PO TID #15 tablet 08/12/17 [Rx] Allergies/Adverse Reactions: 3 Allergy/AdvReac Type Severity Reaction Status Date / Time No Known Allergies Allergy Verified 07/16/17 11:56 Certification: Further, I certify that my clinical findings support that this patient is homebound (i.e. absences from home require considerable and taxing effort and are for medical reasons or sikh services or infrequently or short duration when for other reasons) because: Homebound Reason: Patient requires assistance of a person or device to safely leave home, Severity of cardiac or pulmonary status limits activity tolerance Attestation: My signature below is to certify that this patient is under my care and that I, or nurse practitioner, or a physician's billing and accounting staff assistant working with me, has a face-to -face encounter with this patient.
[2017-08-12] MEDS ORDERED: *HR* Warfarin 5 MG TABLET PO ONE (18:00)
[2017-08-12] MEDS ORDERED: Warfarin perPT PO PRN (18:00)
--- NOTE | 2017-08-14 06:54 | Electrocardiograph Report ---
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
--- NOTE | 2017-08-14 06:55 | Electrocardiograph Report ---
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
== END 2017-08-12 14:50 | disposition home health service (06) | DRG 291 ==
LOC: 2NENU 12:05 → EMEROO 12:05 → 2NENU 17:26 → ICNU 08-09 12:51 → 2NENU 08-11 14:11
PROVIDERS: ADMIT Internal Medicine; ATTEND Internal Medicine